=== PATIENT | male | born 1960 | race Caucasian/White ===

== ENCOUNTER → 2017-06-10 | Outpatient (CLI) | payer BC ==
[~2017-06-10] MED LIST: LEVO100T PO; OMEP20CA9 PO
[2017-06-10 12:59] LABS: ALT/SGPT 29 U/L (12-78); AST/SGOT 17 U/L (15-37); BLOOD UREA NITROGEN 16 mg/dl (7-18); BUN/CREATININE RATIO 20.4 (10-20); CALCIUM 8.6 mg/dl (8.5-10.1); CARBON DIOXIDE 27 mmol/L (21-32); CHLORIDE 107 mmol/L (98-107); CHOLESTEROL 164 mg/dl (0-200); GLUCOSE 94 mg/dl (70-99); POTASSIUM 4.2 mmol/L (3.5-5.1); SODIUM 142 mmol/L (136-145); TRIGLYCERIDES 51 mg/dl (0-150); VERY LOW DENSITY LIPOPROT CALC 10 mg/dl
[2017-06-10 13:09] LABS: ESTIMATED AVERAGE GLUCOSE 114 mg/dl; HA1C FLAG Normal (Normal)
[2017-06-10 13:10] LABS: ALB/GLOB RATIO 1.2 (0.9-2); ALKALINE PHOSPHATASE 69 U/L (45-117); HDL CHOLESTEROL 55 mg/dl; LDL CHOLESTEROL CALCULATED 99 mg/dl; PROSTATE SPECIFIC ANTIGEN 0.497 ng/ml (0.000-4.000)
== END | disposition home or self-care (01) ==
LOC: C.LABBFT 08:02
PROVIDERS: ATTEND Internal Medicine
DX: Z00.00 Encounter for general adult medical examination without abnormal findings (principal); Z12.5 Encounter for screening for malignant neoplasm of prostate; E03.9 Hypothyroidism, unspecified; R73.01 Impaired fasting glucose

== ENCOUNTER 2020-06-14 19:23 | Inpatient (IN) ==
[2020-06-14] MEDS ORDERED: ASPIRIN 81 MG CHEW PO STA (19:45)
--- NOTE | 2020-06-14 19:54 | Emergency Department Note ---
Impression & Plan Non-ST elevation IA (NSTEMI), Chest pain, PARKINSON (dyspnea on exertion) ED Provider Note Provider: Michael Solis MD DATE OF SERVICE:06/14/2020 CHIEF COMPLAINT: Exertional chest pain HISTORY OF PRESENT ILLNESS: Patient is a 59-year-old gentleman history of aortic stenosis and distant history of Hodgkin's lymphoma treated with chemotherapy and radiation therapy in the 1980s presenting here today referred by his primary doctors office. Patient reports that over the past month or so he has developed some burning and chest discomfort across his mid chest. Denies radiation to the back neck jaw or arms. Denies nausea or abdominal symptoms. States with exertion this comes on and he has some shortness of breath with it. Patient states seems to getting worse and now if he goes upstairs to his second level at home he has some discomfort. States he does not have any history of his knowle dge of heart attack. Not currently on aspirin. States about 10 years ago did stress test that was okay. Had some concerns about Covid and initially went home to discuss with his before coming into the ER for evaluation. Patient denies symptoms now at rest. No trauma reported. Denies fever or URI symptoms. No recent travel. REVIEW OF SYSTEMS: A total of 10 review of systems was obtained and negative except as stated above in the HPI. PAST MEDICAL HISTORY: As noted above MEDICATIONS: Reviewed home medications with the patient. FMH: Patient denies cardiac history in the family and is parents SOCIAL HISTORY: Formally chewed tobacco, lives at home with , works in [employer] PHYSICAL EXAM: GENERAL: alert and oriented in no acute distress on stretcher Head: normocephalic and atraumatic EYES: No injection, discharge or icterus. NECK: Trachea midline. LUNGS: Airway patent. No retractions. Breath sounds clear with good air entry bilaterally. HEART: Regular rate and rhythm. No chest wall tenderness ABDOMEN: Soft and non-tender, without guarding or rebound. SKIN: Acyanotic, warm, dry, without rashes EXTREMITIES: Without swelling, tenderness or deformity NEUROLOGICAL: No focal deficits. No aphasia. No facial droop or slurred speech. EK bpm sinus rhythm with occasional fusion complexes LVH noted with some repolarization abnormality causing some ST elevation without significant reciprocal ST depression. T wave inversion in aVL noted. Normal QTC. No priors available to system for comparison. CONTINUOUS CARDIAC MONITORING: was ordered and showed a heart rate of bpm in Patient's laboratory studies and imaging reviewed. Differential includes Cardiac ischemia, aortic dissection, pulmonary embolism, pneumothorax, pneumonia, pericarditis, myocarditis, esophageal rupture, GERD, cholecystitis, pancreatitis, musculoskeletal, as well as other pathologies. IMPRESSION/MEDICAL DECISION MAKING: Patient denies symptoms at rest. Question if this is related to possible developing unstable angina. Not having active chest pain at rest. Has LVH changes makes EKG interpretation difficult. Troponin was sent given dose of aspirin here. Does not seem consistent with acute pancreatitis or aortic dissection. Lower suspicion for PE at this time. Does not seem that consistent with an infectious etiology. Some distant since prior cardiac evaluation and likely needs expedited given worsening symptoms. Chest x-ray without significant abnormality per radiology review and my review the images. Blood work with slight leukocytosis and slight anemia. No significant renal dysfunction. Normal electrolytes. Covid testing was negative. Troponin is elevated 0.269. Again concerning for NSTEMI/unstable angina picture. Pain-free currently. Already received aspirin and started on a heparin drip. Discussed with the hospitalist for further inpatient care. Patient and were updated. Likely will need further cardiac evaluation and possible catheterization tomorrow. DIAGNOSIS: NSTEMI, Chest pain, dyspnea on exertion DISPOSITION: Hospitalist will evaluate Patient was agreeable with this plan. updated. Critical Care I have personally spent 31 minutes of critical care time in the direct management of this patient. This includes bedside care, interpretation of diagnostic studies, and testing, discussion with consultants, patient, and family members, and other required patient management activities. These 31 minutes is in excess of all separately billable procedures. Past Med/Surg History Medical History (Updated 06/14/20 @ 22:59 by Michael Solis M.D.) Aortic stenosis, moderate Clarke's esophagus Carpal tunnel syndrome, bilateral Cervical radiculopathy Chronic back pain GERD (gastroesophageal reflux disease) History of colon polyps Hodgkin disease (1987) chemo/radiation Hypothyroidism Sleep apnea doesn't use as prescribed Spinal stenosis Surgical History (Updated 06/14/20 @ 18:53 by Rani Brown MD) History of arthroscopy of left knee meniscus repair History of colonoscopy History of esophagogastroduodenoscopy (EGD) History of thyroidectomy, total d/t cancer Status post biopsy of thyroid gland malignant Family History (Updated 11/07/18 @ 11:44 by Carol Leon RN) Other No family history of adverse response to anesthesia Social History (Updated 11/07/18 @ 13:20 by Mary Kate Sosa RN) Smoking Status: Never smoker Second Hand Exposure: Yes (coworker smokes); Hx Alcohol Use: Yes Alcohol type: beer Hx Substance Use: No Preferred Language: Icelandic Communication Ability: Effective Snuff Box Finisher Required: No Beliefs That Will Affect Care: None marital status: Current Living Situation: Spouse current occupational status: employed Feels Safe at Home: Yes Assistive Devices: Glasses Allergies Allergies Allergy/AdvReac Type Severity Reaction Status Date / Time No Known Allergies Allergy Verified 06/14/20 20:55 Home Meds Home Medications Medication Instructions Recorded Confirmed calcium carbonate [Tums] 200 mg PO DIRECTED PRN 11/07/18 06/14/20 naproxen sodium [Aleve] 220 mg PO QAM 11/07/18 06/14/20 albuterol sulfate 2 puffs INH Q8H PRN 06/14/20 06/14/20 fexofenadine 0 mg PO QAM 06/14/20 06/14/20 glucosamine-chondroitin 2 tab PO QAM 06/14/20 06/14/20 levothyroxine 100 mcg PO QAM 06/14/20 06/14/20 multivitamin 1 tab PO QAM 06/14/20 06/14/20 omeprazole 40 mg PO QAM 06/14/20 06/14/20 Results & Data (ED) Vital Signs Vital Signs - 24 hr 06/14/20 19:25 06/14/20 19:45 06/14/20 20:11 Temperature 36.3 C L Temperature Source Oral Pulse Rate 89 83 Pulse Rate from SpO2 Sensor 83 Respiratory Rate 18 17 Respiratory Effort / Characteristics Non-Labored Respiratory Depth Normal Blood Pressure 173/97 H 171/92 H Blood Pressure Mean 122 101 Pulse Oximetry 95 94 96 Oxygen Delivery Method Room Air Room Air Room Air Sepsis Recent Fever Within 48 Hours No Sepsis New/Unexplained Change in Mental Status No Sepsis Action Taken by Nursing No Action Required 06/14/20 20:30 06/14/20 21:00 06/14/20 21:30 Temperature Temperature Source Pulse Rate 80 87 82 Pulse Rate from SpO2 Sensor 81 87 82 Respiratory Rate 18 18 15 Respiratory Effort / Characteristics Respiratory Depth Blood Pressure 132/80 160/97 H 134/80 Blood Pressure Mean 95 110 94 Pulse Oximetry 94 97 96 Oxygen Delivery Method Room Air Room Air Room Air Sepsis Recent Fever Within 48 Hours Sepsis New/Unexplained Change in Mental Status Sepsis Action Taken by Nursing Laboratory Data Result diagrams: 06/14/20 19:46 06/14/20 19:46 Lab Results 06/14/20 06/14/20 06/14/20 Range/Units 19:46 19:46 19:46 WBC 11.86 H (4.8-10.8) K/uL RBC 4.65 L (4.7-6.1) M/uL Hgb 13.9 L (14.0-18.0) g/dL Hct 42.2 (42-52) % MCV 90.8 (80-100) fL MCH 29.9 (25-34) pg MCHC 32.9 (32-36) g/dL RDW Std Deviation 45.1 (36.4-46.3) fL RDW Coeff of Ashlyn 13.7 (11.5-14.5) % Plt Count 220 (130-400) K/uL MPV 10.4 (7.4-10.4) fL Immature Gran % (Auto) 0.2 % Neut % (Auto) 67.2 % Lymph % (Auto) 20.8 % [place] % (Auto) 10.2 % Eos % (Auto) 1.4 % Baso % (Auto) 0.2 % Neut # (Auto) 7.97 H (1.4-6.5) K/uL Lymph # (Auto) 2.47 (1.2-3.4) K/uL [place] # (Auto) 1.21 H (0.11-0.59) K/uL Eos # (Auto) 0.17 (0-0.5) K/uL Baso # (Auto) 0.02 (0-0.2) K/uL Immature Gran # (Auto) 0.02 (0.00-0.02) K/uL PT 10.8 (9.0-12.0) Seconds INR 1.0 (0.9-1.1) APTT 27.7 (21.0-31.0) Seconds PTT Ratio 1.0 Sodium 141 (136-145) mmol/L Potassium 3.8 (3.5-5.1) mmol/L Chloride 109 H (98-107) mmol/L Carbon Dioxide 26 (21-32) mmol/L Anion Gap 6.0 (3-11) BUN 18 (7-18) mg/dl Creatinine 0.73 (0.6-1.4) mg/dl Est Cr Clr Drug Dosing 142.1 ml/min Est GFR ( Amer) 119.3 Est GFR (Non-Af Amer) 103.0 BUN/Creatinine Ratio 24.7 H (10-20) Glucose 85 (70-99) mg/dl Calcium 8.8 (8.5-10.1) mg/dl Total Bilirubin 0.7 (0.2-1) mg/dl AST 20 (15-37) U/L ALT 25 (12-78) U/L Alkaline Phosphatase 71 (45-117) U/L Troponin I 0.269 H* (0-0.045) ng/ml Total Protein 7.1 (6.4-8.2) gm/dl Albumin 4.0 (3.4-5.0) gm/dl Globulin 3.1 (2.5-4.0) gm/dl Albumin/Globulin Ratio 1.3 (0.9-2) Lipase 73 (73-393) U/L COVID-19 Eval Order SARS-CoV-2, RNA, NAAT (NEGATIVE) 06/14/20 06/14/20 Range/Units 20:43 20:43 WBC (4.8-10.8) K/uL RBC (4.7-6.1) M/uL Hgb (14.0-18.0) g/dL Hct (42-52) % MCV (80-100) fL MCH (25-34) pg MCHC (32-36) g/dL RDW Std Deviation (36.4-46.3) fL RDW Coeff of Ashlyn (11.5-14.5) % Plt Count (130-400) K/uL MPV (7.4-10.4) fL Immature Gran % (Auto) % Neut % (Auto) % Lymph % (Auto) % [place] % (Auto) % Eos % (Auto) % Baso % (Auto) % Neut # (Auto) (1.4-6.5) K/uL Lymph # (Auto) (1.2-3.4) K/uL [place] # (Auto) (0.11-0.59) K/uL Eos # (Auto) (0-0.5) K/uL Baso # (Auto) (0-0.2) K/uL Immature Gran # (Auto) (0.00-0.02) K/uL PT (9.0-12.0) Seconds INR (0.9-1.1) APTT (21.0-31.0) Seconds PTT Ratio Sodium (136-145) mmol/L Potassium (3.5-5.1) mmol/L Chloride (98-107) mmol/L Carbon Dioxide (21-32) mmol/L Anion Gap (3-11) BUN (7-18) mg/dl Creatinine (0.6-1.4) mg/dl Est Cr Clr Drug Dosing ml/min Est GFR ( Amer) Est GFR (Non-Af Amer) BUN/Creatinine Ratio (10-20) Glucose (70-99) mg/dl Calcium (8.5-10.1) mg/dl Total Bilirubin (0.2-1) mg/dl AST (15-37) U/L ALT (12-78) U/L Alkaline Phosphatase (45-117) U/L Troponin I (0-0.045) ng/ml Total Protein (6.4-8.2) gm/dl Albumin (3.4-5.0) gm/dl Globulin (2.5-4.0) gm/dl Albumin/Globulin Ratio (0.9-2) Lipase (73-393) U/L COVID-19 Eval Order Covid19 [facility] SARS-CoV-2, RNA, NAAT NEGATIVE (NEGATIVE) Administered Medications Heparin Sodium/Dextrose (Heparin Sodium/Dextrose) 25,000 units in 500 mls @ 32 mls/hr IV .[id number] COUNTS INCLUDE 234 BEDS AT THE [facility]; Protocol Stop: 07/14/20 20:44 Last Admin: 06/14/20 20:54 Dose: 1,600 units/hr, 32 mls/hr Documented by: [id number] Cosigned by: [id number] Discontinued Medications Aspirin (Aspirin 81 Mg Chew) 324 mg PO NOW STA Stop: 06/14/20 19:46 Last Admin: 06/14/20 20:09 Dose: 324 mg Documented by: [id number] Heparin Sodium/Dextrose (Heparin Iv Standard *No* Bolus) 1 ea N/A ONE ONE; Protocol Stop: 06/14/20 20:34 Last Admin: 06/14/20 20:54 Dose: 1 ea Documented by: [id number] Discharge Plan Visit Data Chief Complaint: Chest Pain Stated Complaint: CHEST PAIN, CONFUSION, CARDIAC Hx ED Provider: Michael Solis Discharge Problem: Non-ST elevation IA (NSTEMI), Chest pain, PARKINSON (dyspnea on exertion) Patient Disposition: Admitted As Inpatient Forms Stand Alone Forms: [facility] Prescriptions Prescriptions: No Action naproxen sodium [Aleve] 220 mg Capsule 220 mg PO QAM RF: 0 calcium carbonate [Tums] 200 mg calcium (500 mg) Tablet,Chewable 200 mg PO DIRECTED PRN (Reason: Heartburn/Upset Stomach) RF: 0 multivitamin Tablet 1 tab PO QAM RF: 0 fexofenadine 180 mg Tablet 0 mg PO QAM RF: 0 glucosamine-chondroitin 500-400 mg Tablet 2 tab PO QAM RF: 0 omeprazole 40 mg capsule,delayed release(DR/EC) 40 mg PO QAM RF: 0 levothyroxine 100 mcg tablet 100 mcg PO QAM RF: 0 albuterol sulfate 90 mcg/actuation HFA aerosol inhaler 2 puffs INH Q8H PRN (Reason: Shortness Of Breath Or Wheezing) RF: 0 Referrals Referrals: Rani Brown MD [Primary Care Provider] - Discharge Problem: Chest pain Qualifiers: Chest pain type: chest pain due to myocardial ischemia Ischemic chest pain type : unstable angina pectoris Qualified Code(s): I20.0 - Unstable angina
[2020-06-14 19:57] LABS: Basophils # (auto) 0.02 K/uL (0-0.2); Basophils % (auto) 0.2 %; Eosinophils # (auto) 0.17 K/uL (0-0.5); Eosinophils % (auto) 1.4 %; Hematocrit (blood only) 42.2 % (42-52); Hemoglobin 13.9 g/dL (14.0-18.0); Immature Granulocytes # (auto) 0.02 K/uL (0.00-0.02); Immature Granulocytes % (auto) 0.2 %; Lymphocytes # (auto) 2.47 K/uL (1.2-3.4); Lymphocytes % (auto) 20.8 %; Mean Corpuscular Hemoglobin 29.9 pg (25-34); Mean Corpuscular Hgb Conc 32.9 g/dL (32-36); Mean Corpuscular Volume 90.8 fL (80-100); Mean Platelet Volume 10.4 fL (7.4-10.4); Monocytes # (auto) 1.21 K/uL (0.11-0.59); Monocytes % (auto) 10.2 %; Neutrophils # (auto) 7.97 K/uL (1.4-6.5); Neutrophils % (auto) 67.2 %; Platelet Count 220 K/uL (130-400); RDW Coefficient of Variation 13.7 % (11.5-14.5); RDW Standard Deviation 45.1 fL (36.4-46.3); Red Blood Count 4.65 M/uL (4.7-6.1); White Blood Count 11.86 K/uL (4.8-10.8)
[2020-06-14 20:13] LABS: Partial Thromboplastin Time 27.7 Seconds (21.0-31.0); Prothrombin Time 10.8 Seconds (9.0-12.0)
[2020-06-14 20:14] LABS: BUN Creatinine Ratio 24.7 (10-20); Calcium 8.8 mg/dl (8.5-10.1); Creatinine Clr Calc Pharmacy 142.1 ml/min; Est GFR (African American) 119.3; Potassium 3.8 mmol/L (3.5-5.1)
--- NOTE | 2020-06-14 20:19 | XRay Report ---
XR chest 1V portable HISTORY: 59 years-old Male Chest Pain acute atypical chest pain COMPARISON: Chest radiograph 12/24/2019 TECHNIQUE: Portable AP view of the chest FINDINGS: Calcified hilar lymph nodes. Moderate cardiomegaly. No pneumothorax, large pleural effusion or overt pulmonary edema. Unchanged blunting of the costophrenic angles. Apparent bibasilar densities are like ly secondary to summation density secondary to patient body habitus. Bones appear grossly intact. IMPRESSION: Cardiomegaly without acute process. ACT 112: Negative or not required by law. The above report was generated using voice recognition software. It may contain grammatical, syntax o r spelling errors. Electronically signed by: Maged Loja M.D. 06/14/2020 8:18 PM
[2020-06-14 20:24] LABS: Albumin Globulin Ratio 1.3 (0.9-2); Bilirubin,Total 0.7 mg/dl (0.2-1); Globulin 3.1 gm/dl (2.5-4.0); Total Protein 7.1 gm/dl (6.4-8.2); Troponin I 0.269 ng/ml (0-0.045)
[2020-06-14] MEDS ORDERED: Heparin IV Standard *NO* Bolus ONE (20:33)
[2020-06-14] MEDS ORDERED: HEPARIN SODIUM/DEXTROSE 25,000 UNITS/500 ML BAG IV SCH (20:45)
[2020-06-14] MEDS ORDERED: ACETAMINOPHEN 325 MG TAB PO PRN (23:28)
[2020-06-14] MEDS ORDERED: NITROGLYCERIN SL 0.4 MG/TAB TAB SL PRN (23:28)
[2020-06-14] MEDS ORDERED: MoRPHine SULFATE 2 MG/ML CARP IV PRN (23:28)
[2020-06-14] MEDS ORDERED: ONDANSETRON INJ 2 MG/ML 2 ML VIAL IV PRN (23:28)
--- NOTE | 2020-06-15 00:56 | History & Physical Report ---
Date of Service June 14, 2020 Assessment & Plan (1) Chest pain: 59yo male presenting with exertional chest pain, mildly elevated troponin, concern for UA/NSTEMI. Patient currently HD stable, CP free. EKG with fusion complexes, LVH, troponin elevated at 0.269 -Admit to PCU -Heparin gtt -Trend troponin -Check 2D echo -Cardiology consultation appreciated - will keep patient NPO for possible catheterization -ASA 81mg po daily Present on Admission?: Yes (2) Hypothyroidism: Chronic. Stable -Continue Synthroid 100mcg po daily Present on Admission?: Yes (3) GERD (gastroesophageal reflux disease): Chronic -Protonix 40mg po daily F/E/N - Heplock. Electrolytes WNL. NPO for now Ppx - Low risk for DVT, patient will be on heparin gtt as above Code - Full Dispo - Admit to PCU Present on Admission?: Yes Admission and Anticipated Discharge Date Admission Date: June 14, 2020 History of Present Illness Chief Complaint: chest pain Primary Care Provider: Rani Brown MD Juan Carlos Aggarwal is a 59yo C male presenting with chest pain. Patient with remote history of Hodgkin's Lymphoma s/p chemotherapy and XRT, TIAGO and aortic stenosis. 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 Patient reports that over the last month he has been experiencing bandlike upper chest discomfort with activity - burning in nature, resolves after a few minutes of rest. He has associated palpitations, occasional dizziness and SOB accompanying his chest discomfort. Increased frequency and severity over the last month. Currently has never experienced the symptoms while at rest. No syncope, orthopnea, edema. No personal history of CAD/[place]/Arrhythmia. No prior cardiac catheterizations. He has had stress tests in the past, most recently > 5 years ago. Patient was told once that he may have some damage to the bottom portion of his heart from his prior chemo/XRT but is uncertain of specifics. Currently denies CP. ER Course: ASA, heparin gtt Allergies Allergy/AdvReac Type Severity Reaction Status Date / Time No Known Allergies Allergy Verified 06/14/20 20:55 Home Medications Medication Instructions Recorded Confirmed Type calcium carbonate [Tums] 200 mg PO DIRECTED PRN 11/07/18 06/14/20 History naproxen sodium [Aleve] 220 mg PO QAM 11/07/18 06/14/20 History albuterol sulfate 2 puffs INH Q8H PRN 06/14/20 06/14/20 History fexofenadine 0 mg PO QAM 06/14/20 06/14/20 History glucosamine-chondroitin 2 tab PO QAM 06/14/20 06/14/20 History levothyroxine 100 mcg PO QAM 06/14/20 06/14/20 History multivitamin 1 tab PO QAM 06/14/20 06/14/20 History omeprazole 40 mg PO QAM 06/14/20 06/14/20 History Past Med/Surg History Medical History (Updated 06/15/20 @ 01:54 by Juana Grace DO) Aortic stenosis, moderate Clarke's esophagus Carpal tunnel syndrome, bilateral Cervical radiculopathy Chronic back pain GERD (gastroesophageal reflux disease) History of colon polyps Hodgkin disease (1987) chemo/radiation Hypothyroidism Sleep apnea doesn't use as prescribed Spinal stenosis Surgical History (Updated 06/14/20 @ 18:53 by Rani Brown MD) History of arthroscopy of left knee meniscus repair History of colonoscopy History of esophagogastroduodenoscopy (EGD) History of thyroidectomy, total d/t cancer Status post biopsy of thyroid gland malignant Family History (Updated 11/07/18 @ 11:44 by Carol Leon RN) Other No family history of adverse response to anesthesia Social History (Updated 11/07/18 @ 13:20 by Mary Kate Sosa, ALLA) Smoking Status: Never smoker Second Hand Exposure: Yes (coworker smokes); Hx Alcohol Use: Yes Alcohol type: beer Hx Substance Use: No Preferred Language: Romanian Communication Ability: Effective Sedimentationist Required: No Beliefs That Will Affect Care: None marital status: Current Living Situation: Family current occupational status: employed Other Information That Helps Us Care for You: No Feels Safe at Home: Yes Safety Concerns: Feels Safe At This Time Assistive Devices: Glasses Review of Systems Review of Systems: All systems reviewed & are unremarkable except as noted in HPI & below Physical Exam Physical Exam: General: patient resting comfortably, NAD, non-toxic in appearance, AA&O x 4 Skin: warm, dry, intact, no rashes or lesions HEENT: NC/AT, PERRL, EOMI, anicteric sclera, conjunctiva without injection, external ear normal to inspection and nontender, nares patent, moist mucus membranes, dentition intact, no oropharyngeal lesions, neck supple, trachea midline, no LAD, no thyromegaly, no JVD Heart: +S1/S2, regular, no m/r/g Lungs: equal air entry bilaterally, no rales/rhonchi/wheezes Abd: +BS, soft, NT/ND, no masses/organomegaly/ascites Ext: warm, 2+ pulses in UE/LE bilaterally, no clubbing/cyanosis or edema Neuro: nonfocal, patient AA&O x 4, speech intact, no facial droop, moving all extremities on command with equal strength 5/5 Results & Data Results & Data ([facility]) Vital Signs (Past 12 Hours) Vital Signs Temp Pulse Pulse Resp BP BP Pulse Ox 06/14/20 23:28 36.6 C 108 H 22 161/99 H 95 06/14/20 23:00 90 16 131/77 96 06/14/20 22:30 90 15 149/92 H 96 06/14/20 21:30 82 15 134/80 96 06/14/20 21:00 87 18 160/97 H 97 06/14/20 20:30 80 18 132/80 94 06/14/20 20:11 83 17 171/92 H 96 06/14/20 19:45 94 06/14/20 19:25 36.3 C L 89 18 173/97 H 95 Laboratory Results Lab Results 06/14/20 06/14/20 06/14/20 Range/Units 19:38 19:46 19:46 WBC 11.86 H (4.8-10.8) K/uL RBC 4.65 L (4.7-6.1) M/uL Hgb 13.9 L (14.0-18.0) g/dL Hct 42.2 (42-52) % MCV 90.8 (80-100) fL MCH 29.9 (25-34) pg MCHC 32.9 (32-36) g/dL RDW Std Deviation 45.1 (36.4-46.3) fL RDW Coeff of Ashlyn 13.7 (11.5-14.5) % Plt Count 220 (130-400) K/uL MPV 10.4 (7.4-10.4) fL Immature Gran % (Auto) 0.2 % Neut % (Auto) 67.2 % Lymph % (Auto) 20.8 % [place] % (Auto) 10.2 % Eos % (Auto) 1.4 % Baso % (Auto) 0.2 % Neut # (Auto) 7.97 H (1.4-6.5) K/uL Lymph # (Auto) 2.47 (1.2-3.4) K/uL [place] # (Auto) 1.21 H (0.11-0.59) K/uL Eos # (Auto) 0.17 (0-0.5) K/uL Baso # (Auto) 0.02 (0-0.2) K/uL Immature Gran # (Auto) 0.02 (0.00-0.02) K/uL PT 10.8 (9.0-12.0) Seconds INR 1.0 (0.9-1.1) APTT 27.7 (21.0-31.0) Seconds PTT Ratio 1.0 Sodium (136-145) mmol/L Potassium (3.5-5.1) mmol/L Chloride (98-107) mmol/L Carbon Dioxide (21-32) mmol/L Anion Gap (3-11) BUN (7-18) mg/dl Creatinine (0.6-1.4) mg/dl Est Cr Clr Drug Dosing ml/min Est GFR ( Amer) Est GFR (Non-Af Amer) BUN/Creatinine Ratio (10-20) Glucose (70-99) mg/dl Calcium (8.5-10.1) mg/dl Magnesium (1.8-2.4) mg/dl Total Bilirubin (0.2-1) mg/dl AST (15-37) U/L ALT (12-78) U/L Alkaline Phosphatase (45-117) U/L Troponin I (0-0.045) ng/ml Total Protein (6.4-8.2) gm/dl Albumin (3.4-5.0) gm/dl Globulin (2.5-4.0) gm/dl Albumin/Globulin Ratio (0.9-2) Lipase (73-393) U/L COVID-19 Eval Order Hepatitis C Ab Screen Neg (Neg) SARS-CoV-2, RNA, NAAT (NEGATIVE) 06/14/20 06/14/20 06/14/20 Range/Units 19:46 20:43 20:43 WBC (4.8-10.8) K/uL RBC (4.7-6.1) M/uL Hgb (14.0-18.0) g/dL Hct (42-52) % MCV (80-100) fL MCH (25-34) pg MCHC (32-36) g/dL RDW Std Deviation (36.4-46.3) fL RDW Coeff of Ashlyn (11.5-14.5) % Plt Count (130-400) K/uL MPV (7.4-10.4) fL Immature Gran % (Auto) % Neut % (Auto) % Lymph % (Auto) % [place] % (Auto) % Eos % (Auto) % Baso % (Auto) % Neut # (Auto) (1.4-6.5) K/uL Lymph # (Auto) (1.2-3.4) K/uL [place] # (Auto) (0.11-0.59) K/uL Eos # (Auto) (0-0.5) K/uL Baso # (Auto) (0-0.2) K/uL Immature Gran # (Auto) (0.00-0.02) K/uL PT (9.0-12.0) Seconds INR (0.9-1.1) APTT (21.0-31.0) Seconds PTT Ratio Sodium 141 (136-145) mmol/L Potassium 3.8 (3.5-5.1) mmol/L Chloride 109 H (98-107) mmol/L Carbon Dioxide 26 (21-32) mmol/L Anion Gap 6.0 (3-11) BUN 18 (7-18) mg/dl Creatinine 0.73 (0.6-1.4) mg/dl Est Cr Clr Drug Dosing 142.1 ml/min Est GFR ( Amer) 119.3 Est GFR (Non-Af Amer) 103.0 BUN/Creatinine Ratio 24.7 H (10-20) Glucose 85 (70-99) mg/dl Calcium 8.8 (8.5-10.1) mg/dl Magnesium 2.0 (1.8-2.4) mg/dl Total Bilirubin 0.7 (0.2-1) mg/dl AST 20 (15-37) U/L ALT 25 (12-78) U/L Alkaline Phosphatase 71 (45-117) U/L Troponin I 0.269 H* (0-0.045) ng/ml Total Protein 7.1 (6.4-8.2) gm/dl Albumin 4.0 (3.4-5.0) gm/dl Globulin 3.1 (2.5-4.0) gm/dl Albumin/Globulin Ratio 1.3 (0.9-2) Lipase 73 (73-393) U/L COVID-19 Eval Order Cov[facility]19 [facility] Hepatitis C Ab Screen (Neg) SARS-CoV-2, RNA, NAAT NEGATIVE (NEGATIVE) Diagnostic Findings XR chest 1V portable HISTORY: 59 years-old Male Chest Pain acute atypical chest pain COMPARISON: Chest radiograph 12/24/2019 TECHNIQUE: Portable AP view of the chest FINDINGS: Calcified hilar lymph nodes. Moderate cardiomegaly. No pneumothorax, large pleural effusion or overt pulmonary edema. Unchanged blunting of the costophrenic angles. Apparent bibasilar densities are likely secondary to summation density secondary to patient body habitus. Bones appear grossly intact. IMPRESSION: Cardiomegaly without acute process. ACT 112: Negative or not required by law. The above report was generated using voice recognition software. It may contain grammatical, syntax or spelling errors. Electronically signed by: Maged Loja M.D. 06/14/2020 8:18 PM Dictated: 06/14/202016Transcribed: 06/14/202016 ECG Additional Comments: EKG with SR at 86bpm, fusion complexes, wide complex beats, CJ=770, QRS=94, GIq=185, LVH. PG Care Time/CCT Total # of Minutes Spent Total Time Spent with Patient: Total time spent is greater than 50% in coordination of care (as documented) at patient's floor/unit and/or counseling patient: Coding Level of Care Code 15029 Initial Inpt Care Lvl 3 Diagnoses Chest pain I20.0 Chest pain type: chest pain due to myocardial ischemia Ischemic chest pain type: unstable angina pectoris Hypothyroidism E03.9 Hypothyroidism type: unspecified GERD (gastroesophageal reflux disease) K21.9 Esophagitis presence: esophagitis presence not specified (1) Hypothyroidism Hypothyroidism type: unspecified Qualified Code(s): E03.9 - Hypothyroidism, unspecified (2) GERD (gastroesophageal reflux disease) Esophagitis presence: esophagitis presence not specified Qualified Code(s): K21.9 - Gastro-esophageal reflux disease without esophagitis (3) Chest pain Chest pain type: chest pain due to myocardial ischemia Ischemic chest pain type: unstable angina pectoris Qualified Code(s): I20.0 - Unstable angina
[2020-06-15 03:24] LABS: Partial Thromboplastin Ratio 1.6
[2020-06-15] MEDS ORDERED: LEVOTHYROXINE SODIUM 100 MCG TABLET PO SCH (06:30)
[2020-06-15] MEDS ORDERED: ASPIRIN 81 MG ECTAB PO SCH (09:00)
[2020-06-15] MEDS ORDERED: PANTOprazole 40 MG TAB PO SCH (09:00)
--- NOTE | 2020-06-15 09:26 | Cardiology Consultation ---
Date of Consultation June 15, 2020 Assessment & Plan (1) Exertional angina: (2) Elevated troponin: (3) Aortic stenosis: (4) Mitral regurgitation: (5) Pulmonary hypertension: ASSESSMENT/PLAN: 1. Angina: Symptoms are concerning for unstable angina with progressively worsening frequency of exertional angina. Discussed with him the fact that this could be due to his significant aortic stenosis versus underlying coronary artery disease. Possible that his valvular disease and potentially coronary artery disease could be related to prior XRT versus atherosclerotic disease. Recommended cardiac catheterization. Risks and benefits were discussed with him in detail. He was made aware that CT surgery is not available at this facility. He was agreeable. Currently chest pain-free. 2. Aortic stenosis: Appears to be significant on exam and echo. Full measurements have not yet been completed. Discussed the fact that he will likely need aortic valve replacement. He was made aware that that cannot be done at this facility. Cardiac catheterization as above. 3. Mitral regurgitation: Mitral regurgitation appeared to be moderate. May have some underlying mitral stenosis as well although measurements are pending. Recommend transesophageal echo given degree of mitral valve regurgitation for further investigation. Risks and benefits were discussed with him in detail. 4. Pulmonary hypertension: Likely related to his valvular heart disease. Right heart catheterization can be performed during angiography. 5. Elevated troponin: He did not rule in for myocardial infarction. Likely related to at least his aortic stenosis, with potential for underlying coronary artery disease. Can continue with heparin drip given his worsening symptoms as an outpatient. Will also start metoprolol tartrate 25 mg twice daily. Fasting lipids ordered. Recommend high-intensity statin therapy. 6. Disposition: Cardiology will continue to follow. He has asked that I contact his and will do so via telephone. Patient care communicated with Dr. Arnold of the primary hospitalist service. Highly complex medical issues. Thank you for allowing me to participate in the care of your patient. Please call for any other questions or concerns. Sincerely, Hi Juarez M.D. History of Present Illness Reason for Consultation: unstable angina Requesting Physician: Dr. Hayes Grace Attending Physician: Bill Jose History of Present Illness Mr. Aggarwal is a very pleasant 59-year-old gentleman with a history significant for Hodgkin's lymphoma s/p XRT and chemo therapy in his 20s, sleep apnea (no treatment), and aortic stenosis. He also has a history of thyroidectomy. He admits that he does not follow-up with physicians on a regular basis and has not had screening labs done in some time. He was seen in the outpatient setting yesterday with symptoms concerning for angina and was instructed to go to the emergency department. For the past 1 month, he has had burning across his chest with exertion only. Symptoms resolved within 5-10 minutes of rest. There is associated shortness of breath but no radiation of the pain and no diaphoresis. The frequency of his chest discomfort has been progressively worsening over the past month. He even experiences chest discomfort in his own home, when climbing a flight of stairs. He denies any chest discomfort at rest. He denies any chest discomfort or shortness of breath currently while hospitalized. He carries with him a history of aortic stenosis which was moderate in the past per records. When he arrived at the emergency department, his troponin was slightly elevated at 0.269 and then trended downward to 0.188. He denies melena, hematochezia, hematuria, or other bleeding. He does have exertional lightheadedness but denies syncope. He denies palpitations, orthopnea, shortness of breath at rest, fevers or chills. He was placed on heparin drip by the primary hospitalist service and remains symptom free. Review of systems: As above. Review of systems otherwise negative/unremarkable. Family history: No known premature CAD in first-degree relatives. No known valvular heart disease in first-degree relatives. Social history: Denies smoking. Occasional alcohol. No drugs. He lives at home with his . They have 1 daughter. He works for a [employer]. He was unaccompanied in his hospital room. Allergies Allergy/AdvReac Type Severity Reaction Status Date / Time No Known Allergies Allergy Verified 06/14/20 20:55 Home Medications Medication Instructions Recorded Confirmed Type calcium carbonate [Tums] 200 mg PO DIRECTED PRN 11/07/18 06/14/20 History naproxen sodium [Aleve] 220 mg PO QAM 11/07/18 06/14/20 History albuterol sulfate 2 puffs INH Q8H PRN 06/14/20 06/14/20 History fexofenadine 0 mg PO QAM 06/14/20 06/14/20 History glucosamine-chondroitin 2 tab PO QAM 06/14/20 06/14/20 History levothyroxine 100 mcg PO QAM 06/14/20 06/14/20 History multivitamin 1 tab PO QAM 06/14/20 06/14/20 History omeprazole 40 mg PO QAM 06/14/20 06/14/20 History Patient History Medical History (Updated 06/15/20 @ 09:20 by Kevin Juarez MD) Aortic stenosis Clarke's esophagus Carpal tunnel syndrome, bilateral Cervical radiculopathy Chronic back pain GERD (gastroesophageal reflux disease) History of colon polyps Hodgkin disease (1987) chemo/radiation Hypothyroidism Sleep apnea doesn't use as prescribed Spinal stenosis Surgical History (Updated 06/15/20 @ 09:20 by Kevin Juarez MD) History of arthroscopy of left knee meniscus repair History of colonoscopy History of esophagogastroduodenoscopy (EGD) History of thyroidectomy, total Status post biopsy of thyroid gland Family History (Updated 11/07/18 @ 11:44 by Carol Leon RN) Other No family history of adverse response to anesthesia Social History (Updated 11/07/18 @ 13:20 by Mary Kate Sosa RN) Smoking Status: Never smoker Second Hand Exposure: Yes (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 Alert and oriented. HEENT: Anicteric sclera. Neck: No JVD. Bilateral bruits vs radiation of cardiac murmur. Normal carotid upstrokes bilaterally. Cardiac: PMI was nondisplaced. No ventricular heave. Regular rate and rhythm. Normal S1. Soft S2. 2/6 late peaking systolic ejection murmur heard best at right upper sternal border. No rubs or gallops. Pulmonary: Clear to auscultation bilaterally without wheezes, rales, or rhonchi. Abdomen: Soft, nontender, nondistended, with normoactive bowel sounds. No bruits noted. Extremities: 2+ radial pulses bilaterally. 2+ posterior tibialis pulses bilaterally. No edema or cyanosis. No palpable cords. Psychiatric: Affect appears appropriate. Results & Data ([facility]) Vital Signs (Past 12 Hours) Vital Signs Temp Pulse Pulse Resp BP BP Pulse Ox 06/15/20 03:43 36.6 C 85 18 140/85 93 06/14/20 23:28 36.6 C 108 H 22 161/99 H 95 06/14/20 23:00 90 16 131/77 96 06/14/20 22:30 90 15 149/92 H 96 06/14/20 21:30 82 15 134/80 96 Laboratory Results Laboratory Results - last 24 hr 06/14/20 06/14/20 06/14/20 19:38 19:46 19:46 WBC 11.86 H RBC 4.65 L Hgb 13.9 L Hct 42.2 MCV 90.8 MCH 29.9 MCHC 32.9 RDW Std Deviation 45.1 RDW Coeff of Ashlyn 13.7 Plt Count 220 MPV 10.4 Immature Gran % (Auto) 0.2 Neut % (Auto) 67.2 Lymph % (Auto) 20.8 [place] % (Auto) 10.2 Eos % (Auto) 1.4 Baso % (Auto) 0.2 Neut # (Auto) 7.97 H Lymph # (Auto) 2.47 [place] # (Auto) 1.21 H Eos # (Auto) 0.17 Baso # (Auto) 0.02 Immature Gran # (Auto) 0.02 PT 10.8 INR 1.0 APTT 27.7 PTT Ratio 1.0 Sodium Potassium Chloride Carbon Dioxide Anion Gap BUN Creatinine Est Cr Clr Drug Dosing Est GFR ( Amer) Est GFR (Non-Af Amer) BUN/Creatinine Ratio Glucose Calcium Magnesium Total Bilirubin AST ALT Alkaline Phosphatase Troponin I Total Protein Albumin Globulin Albumin/Globulin Ratio Lipase COVID-19 Eval Order Hepatitis C Ab Screen Neg SARS-CoV-2, RNA, NAAT 06/14/20 06/14/20 06/14/20 19:46 20:43 20:43 WBC RBC Hgb Hct MCV MCH MCHC RDW Std Deviation RDW Coeff of Ashlyn Plt Count MPV Immature Gran % (Auto) Neut % (Auto) Lymph % (Auto) [place] % (Auto) Eos % (Auto) Baso % (Auto) Neut # (Auto) Lymph # (Auto) [place] # (Auto) Eos # (Auto) Baso # (Auto) Immature Gran # (Auto) PT INR APTT PTT Ratio Sodium 141 Potassium 3.8 Chloride 109 H Carbon Dioxide 26 Anion Gap 6.0 BUN 18 Creatinine 0.73 Est Cr Clr Drug Dosing 142.1 Est GFR ( Amer) 119.3 Est GFR (Non-Af Amer) 103.0 BUN/Creatinine Ratio 24.7 H Glucose 85 Calcium 8.8 Magnesium 2.0 Total Bilirubin 0.7 AST 20 ALT 25 Alkaline Phosphatase 71 Troponin I 0.269 H* Total Protein 7.1 Albumin 4.0 Globulin 3.1 Albumin/Globulin Ratio 1.3 Lipase 73 COVID-19 Eval [facility] Hepatitis C Ab Screen SARS-CoV-2, RNA, NAAT NEGATIVE 06/15/20 06/15/20 03:00 03:00 WBC RBC Hgb Hct MCV MCH MCHC RDW Std Deviation RDW Coeff of Ashlyn Plt Count MPV Immature Gran % (Auto) Neut % (Auto) Lymph % (Auto) [place] % (Auto) Eos % (Auto) Baso % (Auto) Neut # (Auto) Lymph # (Auto) [place] # (Auto) Eos # (Auto) Baso # (Auto) Immature Gran # (Auto) PT INR APTT 44.0 H PTT Ratio 1.6 Sodium Potassium Chloride Carbon Dioxide Anion Gap BUN Creatinine Est Cr Clr Drug Dosing Est GFR ( Amer) Est GFR (Non-Af Amer) BUN/Creatinine Ratio Glucose Calcium Magnesium Total Bilirubin AST ALT Alkaline Phosphatase Troponin I 0.188 H* Total Protein Albumin Globulin Albumin/Globulin Ratio Lipase COVID-19 Eval Order Hepatitis C Ab Screen SARS-CoV-2, RNA, NAAT Diagnostic Findings Echo was reviewed at the bedside on 06/15/2020: Preliminary review demonstrated normal LV systolic function without obvious wall motion abnormality. Significant aortic stenosis. At least moderate mitral regurgitation. Pulmonary hypertension. Formal review is pending. ECG personally reviewed: ECG 06/14/2020: Sinus rhythm 86 beats per minute. Intermittent LBBB. Telemetry personally reviewed: No arrhythmia. Chest x-ray 06/14/2020: No acute process per Radiology. PG Care Time/CCT Total # of Minutes Spent Total Time Spent with Patient: Total time spent is greater than 50% in policy service coordinator rdination of care (as documented) at patient's floor/unit and/or counseling patient: Coding Level of Care Code 96194 Inpt Consult Level 5 Diagnoses Exertional angina I20.8 Elevated troponin R77.8 Aortic stenosis I35.0 Mitral regurgitation I34.0 Pulmonary hypertension I27.20
[2020-06-15] MEDS: METOPROLOL TARTRATE 25 MG TAB PO SCH ×2 (10:06→19:32)
[2020-06-15 10:19] LABS: Chol HDL Ratio 3; Cholesterol 199 mg/dl (0-200); HDL Cholesterol 65 mg/dl; LDL Cholesterol Calculated 122 mg/dl; Triglycerides 59 mg/dl (0-150); VLDL Cholesterol 12 mg/dl
[2020-06-15 10:21] LABS: Partial Thromboplastin Ratio 1.8
--- NOTE | 2020-06-15 10:38 | Pre Anesthesia Assessment ---
Date of Service June 15, 2020 Pre Sedation Assessment Vital Signs Temp Pulse Pulse Resp BP BP Pulse Ox 06/15/20 08:00 36.6 C 88 16 185/100 H 96 06/15/20 03:43 36.6 C 85 18 140/85 93 06/14/20 23:28 36.6 C 108 H 22 161/99 H 95 06/14/20 23:00 90 16 131/77 96 06/14/20 22:30 90 15 149/92 H 96 06/14/20 21:30 82 15 134/80 96 06/14/20 21:00 87 18 160/97 H 97 06/14/20 20:30 80 18 132/80 94 06/14/20 20:11 83 17 171/92 H 96 06/14/20 19:45 94 06/14/20 19:25 36.3 C L 89 18 173/97 H 95 Cardiovascular + murmur Respiratory normal respiratory effort, lungs clear to auscultation Pre-Sedation Airway Assessment Smoking Status: Never smoker Mallampati Class: II ASA: ASA3 NPO Status Date of Last Intake of Fluids: 06/14/20 Time of Last Intake of Fluids: 21:00 Date of Last Intake of Solid Food: 06/14/20 Time of Last Intake of Solid Foods: 21:00 Procedure Planning Contraindications for Sedation: none Current Medications Reviewed: Yes Notes The planned sedation has been discussed with the patient. Informed Consent was obtained. I have identified the patient, determined the appropriateness of sedation and have assessed the patient immediately prior to the procedure. All medicine(s) and interventions are by my order.
[2020-06-15 11:11] LABS: Partial Thromboplastin Time 50.5 Seconds (21.0-31.0)
[2020-06-15] MEDS ORDERED: BENZOCAIN/TETRACA/BUTAM SPRAY 200 APPLN/20 GM SPRY EXT ONE (11:54)
[2020-06-15] MEDS ORDERED: MIDAZOLAM HCL 1 MG/ML 2ML VIAL ONE ×2 (11:54→12:41)
[2020-06-15] MEDS ORDERED: fentaNYL citrate 100 MCG/2 ML VIAL ONE ×2 (11:54→12:41)
--- NOTE | 2020-06-15 12:03 | Electrocardiogram Report ---
Test Reason : Blood Pressure : / mmHG Vent. Rate : 086 BPM Atrial Rate : 086 BPM P-R Int : 128 ms QRS Dur : 094 ms QT Int : 368 ms P-R-T Axes : 027 025 011 degrees QTc Int : 440 ms Sinus rhythm with Fusion complexes Possible Left atrial enlargement Left ventricular hypertrophy Nonspecific ST abnormality Abnormal ECG No previous ECGs available Confirmed by Jesus Lee ([id number]) on 06/15/2020 12:03:32 PM Referred By: Rani Brown Confirmed By:Jesus Lee
[2020-06-15] MEDS ORDERED: niCARdipine HCL INJ 2.5 MG/ML 10 ML AMP ONE (12:41)
[2020-06-15] MEDS ORDERED: HEPARIN (PORCINE) 1000 UNIT/ML 10 ML (CATH LAB USE ONLY) ONE (12:41)
[2020-06-15] MEDS ORDERED: NITROGLYCERIN/D5W 100MCG/ML 20ML SYR ONE (12:42)
--- NOTE | 2020-06-15 13:02 | XCELERA ---
[id number]
--- NOTE | 2020-06-15 13:46 | Cardiac Catheterization ---
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 Cardiac Status Clinical evaluation leading to the procedure CAD Presenation: Unstable angina Anginal Classification: CCS III Heart Failure: No Cardiogenic Shock within 24 Hours: No Cardiac Arrest within 24 Hours: No Imaging Studies Past 6 Months: Yes Stress Studies Past 6 Months: No Standard Exercise Test: No Stress Echocardiogram: No Stress Testing w/SPECT MPI: No Cardiac CTA: No Coronary Anatomy Dominant: Right Left Ventricular Angiography EF (%): n/a Diagnostic Physicians Name: Kevin Juarez MD Status: Elective Closure Device Percutaneous Entry Location: Radial Closure Device: Radial Band Recommendations: Management Recommendatons (as above) Cardiac Cath Procedure Full Procedure Date June 15, 2020 Pre-Procedure Diagnosis Pre-Procedure Diagnosis: Angina and Valvular Disease AUC Score AUC Score: 8 Post-Procedure Diagnosis Post-Procedure Diagnosis: Severe CAD and Elevated Intracardiac Pressures Procedure(s) Performed Procedure(s) Performed: Coronary Angiography and Right Heart Cath Physical Therapy Professor Kevin Juarez MD Postbed Stitcher(s) Ezequiel Estimated Blood Loss Estimated Blood Loss: < 25 ml Medication(s) Medication(s): Heparin, Lidocaine 1%, Nicardipine and Versed Summary of Findings Procedures: 1. Coronary angiography 2. Right heart catheterization 3. Moderate sedation Coronary angiography: 1. Left main coronary artery: LMCA without significant CAD. 2. Left anterior descending: Proximal LAD 30%. At the bifurcation of a small D1, mid LAD 80%. Medium caliber D2. SERA-3 flow throughout. 3. Circumflex: Large caliber vessel. Mid circumflex 10 to 20%. Small OM1, small OM 2, very large OM 3. Distal circumflex continues in the AV groove a a very small caliber vessel. 4. Right coronary artery: Dominant and large caliber vessel. Proximal RCA 40%. Mid RCA 30%. Large PDA and PL without significant CAD. Right heart catheterization: 1. Pulmonary capillary wedge pressure: V wave 18 with a mean of 14 mmHg 2. Pulmonary arterial pressure: 40/16 with a mean of 24 mmHg 3. Right ventricular pressure: 40/0 with RVEDP of 7 mmHg 4. Right atrial pressure: A wave 10; V wave 7; mean 5 mmHg 5. Cardiac output via thermodilution is 6.43 L/min, with a cardiac index of 2.81 L/min/m. 6. PVR 1.56 Wood units. Moderate sedation: 1. Sedation start time: 1:05 PM 2. Sedation end time: 1:34 PM Impression: 1. Severe mid LAD stenosis. 2. Mild pulmonary hypertension. 3. Mildly elevated left-sided filling pressure. 4. Normal cardiac output. 5. Previously diagnosed moderate to severe aortic stenosis with moderate to severe mitral regurgitation. Plan: 1. Recommend transfer to CT surgery capable center for consideration of aortic valve replacement and revascularization of LAD. Hemodynamics Rest Ao:: 113/65 Final Ao: 115/63 LV: n/a Recommendations Recommendations: Management Recommendatons (as above) Specimens Specimens: None Radiation Exposure (mGy) 736 mGy. Fluoro time 3.7 min. Contrast (mls) 70 ml Procedural Complication(s) None Disposition PCU I attest to the content of the Intraoperative Record and any orders documented therein. Any exceptions are noted below. [facility] Card Cath Procedure Codes Cardiac Catheterization Procedure 1: Cardiovascular Cath Procedures: 96918 Coronaries and RHC Moderate Sedation Procedure 1: Sedation/Anesthesia: 46751 Mod Sedation by the same physician;Init15 Min Child Age 5 & Up Procedure 2: Sedation/Anesthesia: 22813 Mod Sedation by the same physician; Ea [id number] Minutes PG Care Time/CCT Total # of Minutes Spent Total Time Spent with Patient: Total time spent is greater than 50% in coordination of care (as documented) at patient's floor/unit and/or counseling patient:
[2020-06-15 13:50] LABS: iSTAT Arterial Blood Gas HCO3 22 meg/L (19-24); iSTAT Arterial Blood Gas pCO2 37 mmHg (35-46); iSTAT Arterial Blood Gas pH 7.37 (7.35-7.45); iSTAT Arterial Blood Gas pO2 36 mmHg (80-95); iSTAT Carbon Dioxide 23 mmol/L (24-31)
[2020-06-15 13:50] LABS: iSTAT Arterial Blood Gas HCO3 25 meg/L (19-24); iSTAT Arterial Blood Gas pCO2 45 mmHg (35-46); iSTAT Arterial Blood Gas pH 7.35 (7.35-7.45); iSTAT Arterial Blood Gas pO2 36 mmHg (80-95); iSTAT Carbon Dioxide 26 mmol/L (24-31)
--- NOTE | 2020-06-15 13:56 | Post Operative Brief Note ---
Cardiology Brief Post Op Date of Surgery June 15, 2020 Pre & Post Diagnosis Operation Date: 06/15/20 12:00 <No data on this case meets the specified criteria> Operation Date: 06/15/20 12:30 <No data on this case meets the specified criteria> Procedure [facility] Kevin Juarez MD Virtual Reality Specialist none Estimated Blood Loss 0 Findings See Below Preliminary findings: Normal LV systolic function. Severely stenotic trileaflet aortic valve. Moderate to severe mitral regurgitation. Full report to follow formal review.
[2020-06-15] MEDS ORDERED: SODIUM CHLORIDE 0.9% 1000ML 1,000 ML IV SCH (14:00)
--- NOTE | 2020-06-15 14:25 | Post Anesthesia Assessment ---
Date of Service June 15, 2020 Post Sedation Assessment Vital Signs Temp Pulse Pulse Resp BP BP Pulse Ox 06/15/20 14:11 81 16 136/81 96 06/15/20 13:59 80 16 129/80 95 06/15/20 13:44 74 16 140/84 95 06/15/20 12:25 81 14 116/70 95 06/15/20 12:20 83 14 132/71 95 06/15/20 12:10 95 H 17 142/107 H 96 06/15/20 08:00 36.6 C 88 16 185/100 H 96 06/15/20 03:43 36.6 C 85 18 140/85 93 06/14/20 23:28 36.6 C 108 H 22 161/99 H 95 06/14/20 23:00 90 16 131/77 96 06/14/20 22:30 90 15 149/92 H 96 06/14/20 21:30 82 15 134/80 96 06/14/20 21:00 87 18 160/97 H 97 06/14/20 20:30 80 18 132/80 94 06/14/20 20:11 83 17 171/92 H 96 06/14/20 19:45 94 06/14/20 19:25 36.3 C L 89 18 173/97 H 95 Recovery Score Activity: Moves 4 extremities Respiration: Deep Breath/Cough Circulation: +/-20% PreAnes Value Consciousness: Fully Awake Oxygen Saturation: > 92% On Room Air Discharge Sedation Level of Care: Fast Track Phase II Post Sedation Plan On clinical assessment, the patient appears to have tolerated the sedation without complications. Patient is recovering as anticipated. Patient will continue to be monitored by nursing and may be discharged when sedation discharge criteria are met per below protocol. Upon Completions of procedure up to 15 minutes continue every 5 minute vital signs and the P.A.R. score; then discharge to a Phase I or Fast Track to Phase II per the following guidelines: * Discharge Patient to appropriate Phase II area if PAR is 8 or greater or return to pre- procedure baseline. The post - procedure orders will be as directed. * If PAR score is less than 8 or not return to pre-procedure baseline then patient will follow Phase I monitoring till PAR is reached for Phase II. The Phase I may be done in procedure room or may call to secure a Phase I area. * If naloxone or flumazenil are used for reversal, hold in Phase I for continued monitoring from when last reversal dose was given for a minimum of 60 minutes or longer pending the nurse and/or physician discretion of patient condition before discharge to Phase II. Please call the Sedation Physician to re-evaluate and complete post-note for discharge to Phase II area. Do NOT discharge from procedure sedation or Phase 1 until post- sedation evaluation note is complete by procedure /sedation MD Sedation Discharge Instructions to be given to the patient at discharge to home.
[2020-06-15 15:15] LABS: iSTAT Arterial Blood Gas HCO3 21 meg/L (19-24); iSTAT Arterial Blood Gas pCO2 38 mmHg (35-46); iSTAT Arterial Blood Gas pH 7.36 (7.35-7.45); iSTAT Arterial Blood Gas pO2 52 mmHg (80-95); iSTAT Carbon Dioxide 23 mmol/L (24-31)
[2020-06-15 15:15] LABS: iSTAT Arterial Blood Gas HCO3 24 meg/L (19-24); iSTAT Arterial Blood Gas pCO2 40 mmHg (35-46); iSTAT Arterial Blood Gas pH 7.39 (7.35-7.45); iSTAT Arterial Blood Gas pO2 52 mmHg (80-95); iSTAT Carbon Dioxide 25 mmol/L (24-31)
--- NOTE | 2020-06-15 15:38 | Discharge Summary ---
Date of Service date of admission - June 14, 2020 date of discharge - June 15, 2020 Admission HPI Per Admitting Provider Juan Carlos Aggarwal is a 59yo C male presenting with chest pain. Patient with remote history of Hodgkin's Lymphoma s/p chemotherapy and XRT, TIAGO and aortic stenosis. He is active and independent at home, works as an senior industrial engineer for [employer]. Patient reports that over the last month he has been experiencing bandlike upper chest discomfort with activity - burning in nature, resolves after a few minutes of rest. He has associated palpitations, occasional dizziness and SOB accompanying his chest discomfort. Increased frequency and severity over the last month. Currently has never experienced the symptoms while at rest. No syncope, orthopnea, edema. No personal history of CAD/TX/Arrhythmia. No prior cardiac catheterizations. He has had stress tests in the past, most recently > 5 years ago. Patient was told once that he may have some damage to the bottom portion of his heart from his prior chemo/XRT but is uncertain of specifics. Currently denies CP. ER Course: ASA, heparin gtt Principal Diagnosis NSTEMI; severe CAD; mod-severe aortic stenosis Discharge Exam Constitutional well developed and well nourished; no acute distress and no altered mental status ENMT external ear and nose normal, oropharynx normal Respiratory no respiratory distress Auscultation: + wheezes (minimal - end-expiratory b/l); no crackles and no rhonchi Cardiovascular Rate/Rhythm: regular rate and regular rhythm Heart Sounds: normal S1, normal S2 and + murmur (3/6 holosystolic RUSB/apex) Vessels: posterior tibial pulses present and dorsalis pedis pulses present; no JVD Extremities: no edema Gastrointestinal (Abdomen) normal bowel sounds, soft, nontender, no hepatosplenomegaly Skin right wrist without hematoma or significant bruising Psychiatric A+Ox3, euthymic affect Discharge Data Allergies Allergy/AdvReac Type Severity Reaction Status Date / Time No Known Allergies Allergy Verified 06/14/20 20:55 Consultations [facility] Cardiology - Kevin Juarez MD Procedures Performed Operation Date: 06/15/20 12:00 Actual Procedures p Echo Transesophageal - Kevin Juarez MD - severe . s Echo Color Flow - Kevin Juarez MD s Echo Doppler Complete - Kevin Juarez MD Operation Date: 06/15/20 12:30 Actual Procedures p Cath, Right and Left Heart - Kevin Juarez MD s Cineradiography w/Routine Exam - Kevin Juarez MD Summary of Findings Procedures: 1. Coronary angiography 2. Right heart catheterization 3. Moderate sedation Coronary angiography: 1. Left main coronary artery: LMCA without significant CAD. 2. Left anterior descending: Proximal LAD 30%. At the bifurcation of a small D1, mid LAD 80%. Medium caliber D2. SERA-3 flow throughout. 3. Circumflex: Large caliber vessel. Mid circumflex 10 to 20%. Small OM1, small OM 2, very large OM 3. Distal circumflex continues in the AV groove a a very small caliber vessel. 4. Right coronary artery: Dominant and large caliber vessel. Proximal RCA 40%. Mid RCA 30%. Large PDA and PL without significant CAD. Right heart catheterization: 1. Pulmonary capillary wedge pressure: V wave 18 with a mean of 14 mmHg 2. Pulmonary arterial pressure: 40/16 with a mean of 24 mmHg 3. Right ventricular pressure: 40/0 with RVEDP of 7 mmHg 4. Right atrial pressure: A wave 10; V wave 7; mean 5 mmHg 5. Cardiac output via thermodilution is 6.43 L/min, with a cardiac index of 2.81 L/min/m. 6. PVR 1.56 Wood units. Moderate sedation: 1. Sedation start time: 1:05 PM 2. Sedation end time: 1:34 PM Impression: 1. Severe mid LAD stenosis. 2. Mild pulmonary hypertension. 3. Mildly elevated left-sided filling pressure. 4. Normal cardiac output. 5. Previously diagnosed moderate to severe aortic stenosis with moderate to severe mitral regurgitation. Ordered Studies 06/15/20 12:32 CL Cath Imgs for PACS use only Routine 2D echo: * EF 55-60% * no regional wall motion abnormalities * severe LVH * mod-severe * moderate MR * moderate pulmonary HTN; RVSP 51mmHg Hospital Course (1) Non-ST elevation TX (NSTEMI): Peak troponin 0.26. Initiated on heparin infusion at time of admission. Patient had no further cardiopulmonary symptoms for the remainder of his brief stay. Dr Kevin Juarez was consulted from [facility]iology who recommended MARA and heart catheterization. MARA showed severe , and heart catheterization confirmed severe CAD with 80% LAD lesion. Minor plaque was found in the left circumflex and RCA (see full cath report above). Patient was initiated on aspirin, high-intensity statin (lipitor 80mg daily), and metoprolol. LDL was 122 on lipid profile. HDL was 65. Triglycerides were 59. 2D echo and MARA both showed severe . In light of the severe and severe CAD Dr Juarez recommended transfer to a tertiary care center for consideration of surgical intervention of the and LAD lesion. Dr Moira More graciously accepted Mr Aggarwal in transfer to [facility] for ongoing care. Prior to transfer the patient had stable vital signs, clear chest x-ray, and no recurrent cardiopulmonary symptoms. (2) CAD (coronary artery disease): See full cath report for details. (3) Aortic stenosis: Moderate-Severe as seen on 2D echo and MARA. Surgical intervention to be considered. Suspect that prior radiation for lymphoma contributed to the development of his . (4) Mitral regurgitation: Moderate on echo. (5) Pulmonary hypertension: Moderate on heart cath. (6) Clarke's esophagus: h/o such. Continue PPI. (7) GERD (gastroesophageal reflux disease): Continue PPI. (8) Hypothyroidism: Recommend checking TSH upon transfer to [facility] and adjust his synthroid as necessary. Pre-hospital dose was 100mcg daily. (9) Sleep apnea: Noncompliant with CPAP. (10) History of Hodgkin's lymphoma: s/p radiation and chemotherapy in the distant past. Likely that past radiation contributed to the patient's development of severe aortic stenosis. Total Time Total Time Spent Total Time Spent (In Minutes): 45 Total Time Includes: Examination of the Patient, Discharge Planning, Medication Reconciliation and Communication With Other Providers Discharge Plan Discharge Items Patient Disposition: Transfer Acute Care Hospital Reason For Visit: UNSTABLE ANGINA Discharge Diagnosis: 1. NSTEMI 2. severe CAD 3. moderate-severe aortic stenosis Activity: Per Instructions section Non-emergency contact: Primary Care Provider and [employer] Call non-emergency contact if: you have any medication questions Follow-up/Referrals: Kevin Juarez MD [Physician] - (4-6 weeks after hospital discharge) Rani Brown MD [Primary Care Provider] - Diet: Heart Healthy Addtl Attending Provider Instructions: ACTIVITY RECOMMENDATIONS following heart catheterization: Excess manipulation of the RIGHT wrist should be avoided for the next 24-48 hours. * No lifting over 2 pounds (approximately a 1/2 gallon of milk) with the utilized arm for 24 hours. * No strenuous activity for 3 days. * Keep the site of the procedure covered with a bandage for 24 hours. *You may shower the day after the procedure. Do not take a tub bath or submerge the puncture site in water for the next 3 days. *Do not operate any motorized equipment for 3 days. No HOT or WARM liquids for _8_ hours. __ Avoid "scratchy" foods such as potato chips or pretzels for 24 hours following procedure. SPECIAL CARE INSTRUCTIONS: The site may be slightly bruised and sore following your procedure. Should any of the following occur, contact the Dr. who performed your procedure. 1. Redness/inflammation, swelling, chills, or fever, or colored drainage at procedure site within 3-7 days after your procedure. 2. Coldness, discoloration, ongoing numbness, severe pain, or swelling. Expect mild tingling of hand and tenderness at the puncture site for up to three days. If this persists beyond three days, or other symptoms develop, notify the Dr. who performed your procedure. BLEEDING: If the procedure site on your wrist begins to bleed, do not panic 1. Place 1 or 2 fingers firmly just slightly above the insertion site to stop the bleeding. You may be able to feel your pulse as you hold pressure. 2. Lift your finger after 5 minutes to see if the bleeding has stopped. 3. Once the bleeding has stopped, gently wipe the wrist area clean with a bandage. * If the bleeding from your wrist does not stop after 10 minutes, or if there is a large amount of bleeding or spurting, call 911 (do not drive yourself to the hospital). SKIN IRRITATION: * You may experience some redness and/or swelling in the area where radiation was administered. If any skin irritation occurs, please contact your family physician. FOLLOW UP VISIT: 1. Follow up in Dr. Juarez's office upon 4-6 weeks from discharge. Pending Studies at Discharge: No Stand-Alone Forms: My [facility] Skilled Items Patient informed of condition?: Yes DNR: No Discharge Level of Care: Other Communicable Disease: No Discharge Prognosis: Stable Lines: Peripheral IV Urinary Catheter: No Medications and DC Order Prescriptions: New atorvastatin 40 mg Tablet 80 mg PO HS Qty: 60 RF: 0 metoprolol tartrate 25 mg Tablet 25 mg PO BID Qty: 60 RF: 0 nitroglycerin [Nitrostat] 0.4 mg Tablet, Sublingual 0.4 mg sublingual UD PRN (Reason: chest pain) Qty: 1 RF: 0 aspirin 81 mg Tablet,Delayed Release (Dr/Ec) 81 mg PO QAM Qty: 90 RF: 0 pantoprazole 40 mg Tablet,Delayed Release (Dr/Ec) 40 mg PO QAM Qty: 30 RF: 0 Continued calcium carbonate [Tums] 200 mg calcium (500 mg) Tablet,Chewable 200 mg PO DIRECTED PRN (Reason: Heartburn/Upset Stomach) RF: 0 multivitamin Tablet 1 tab PO QAM RF: 0 glucosamine-chondroitin 500-400 mg Tablet 2 tab PO QAM RF: 0 levothyroxine 100 mcg tablet 100 mcg PO QAM RF: 0 albuterol sulfate 90 mcg/actuation HFA aerosol inhaler 2 puffs INH Q8H PRN (Reason: Shortness Of Breath Or Wheezing) RF: 0 Changed fexofenadine 180 mg Tablet 180 mg PO QAM Qty: 1 RF: 0 Discontinued naproxen sodium [Aleve] 220 mg Capsule 220 mg PO QAM RF: 0 omeprazole 40 mg capsule,delayed release(DR/EC) 40 mg PO QAM RF: 0 Discharge Orders: Discharge Order (Routine); Ordered 06/15/20 Ordered By: Bill Jose Admission Data Admit Date/Time: 06/14/20 21:21 Attending Provider: Bill Jose Admit Provider: Juana Grace Primary Care Provider: Rani Brown Other Providers: Juana Grace ; Kevin Juarez Coding Level of Care Code D/C Day Management >30 mins Diagnoses Non-ST elevation TX (NSTEMI) I21.4 CAD (coronary artery disease) I25.10 Aortic stenosis I35.0 Mitral regurgitation I34.0 Pulmonary hypertension I27.20 Clarke's esophagus K22.70 GERD (gastroesophageal reflux disease) K21.9 Esophagitis presence: esophagitis presence not specified Hypothyroidism E03.9 Hypothyroidism type: unspecified Sleep apnea G47.30 History of Hodgkin's lymphoma Z85.71
--- NOTE | 2020-06-15 15:41 | XRay Report ---
SINGLE VIEW CHEST CLINICAL HISTORY: Wheezing. Myocardial infarction. FINDINGS: An AP, portable, upright chest radiograph is compared to study dated 06/14/2020. The heart is enlarged noting atherosclerotic calcification of the thoracic aorta. The pulmonary vasculature is noncongested. There are calcified mediastinal and hilar lymph nodes. Suspect trace pleural effusions. There is bibasilar atelectasis. No airspace consolidation is seen typical for pneumonia. No pneumoth orax is seen. The skeletal structures are osteopenic. The bony thorax is grossly intact. IMPRESSION: 1. Cardiomegaly without radiographic evidence of congestive failure. 2. Suspect trace pleural effusions. ACT 112: Negative or not required by law. Electronically signed by: Ruddy Yost M.D. 06/15/2020 3:40 PM
[2020-06-15] MEDS ORDERED: ATORVASTATIN 40 MG TAB PO SCH (21:00)
--- NOTE | 2020-06-15 21:54 | XCELERA ---
[id number]
--- NOTE | 2020-06-30 13:17 | Coding Query ---
CODING QUERY To promote full compliance with coding requirements relating to patient care, provider participation is requested in all cases of slip tender uncertainty. Please assist us with the question(s) below: Coding Question(s): There is documentation of NSTEMI on ER, H&P and Discharge Summary, however the Cardiology Consultation, prior to the Cardiac Cath procedure, documents, "Elevated troponin: He did not rule in for myocardial infarction. Likely related to at least his aortic stenosis, with potential for underlying coronary artery disease". Due to the possibly conflicting documentation, please clarify/confirm below, in your clinical opinion, regarding NSTEMI. ( x ) NSTEMI ( ) NSTEMI Ruled-Out Physician's Response(s): Thank you Yoon Gagnon Principal Diagnosis: "that condition established after study, to be chiefly responsible for occasioning the admission of the patient to the hospital for care." Co-Existing Principal Diagnosis: "when two or more diagnoses equally meet the criteria for principal diagnosis as determined by the circumstances of admission, diagnostic work up, and/or therapy provided, and the Alphabetic Index, Tabular List, or another coding guideline does not provide sequencing direction, any one of the diagnoses may be sequenced first." "When the physician has documented what appears to be a current diagnosis in the body of the record, but has not included the diagnosis in the final diagnostic statement, the physician should be asked whether the diagnosis should be added." (Source Coding Clinic 2 QTR90. p3-4) MARIO
== END 2020-06-15 20:05 | disposition short-term general hospital (02) | DRG 282 ==
LOC: ED 19:23 → 1E 21:21 → SUATTDRO 21:21 → 1E 23:12

== ENCOUNTER 2022-12-26 12:23 | Inpatient (IN) ==
[2022-12-26] MEDS ORDERED: ONDANSETRON INJ 2 MG/ML 2 ML VIAL IV STA (12:42)
[2022-12-26] MEDS ORDERED: ACETAMINOPHEN 1,000 MG/100 ML VIAL IV STA (12:42)
[2022-12-26] MEDS ORDERED: SODIUM CHLORIDE 0.9% 1000ML 1,000 ML IV SCH (12:45)
[2022-12-26] MEDS ORDERED: PANTOprazole 40 MG in SYRINGE 0 ML IV ONE (12:46)
--- NOTE | 2022-12-26 13:04 | Emergency Department Note ---
Impression & Plan Abdominal pain, Nausea & vomiting, Acute cholecystitis, Abnormal LFTs ED Provider Note ED Provider Note NAME: ANNETTE FRANCE AGE:62 SEX: Male : 1960 ARRIVES VIA: Private vehicle INFORMANT: Patient ED PROVIDER(s): Ruby Caruso DO CHIEF COMPLAINT: Abdominal pain, nausea/vomiting HPI: This is a 62-year-old male presents emergency department due to concern for 2 weeks of intermittent abdominal pain, nausea and vomiting. Patient states symptoms first began while camping and he attributed it to eating spicy sausage. He states his symptoms would improve but then when he would eat something again he would have recurrent symptoms. He states the time span between eating and having evolving pain and nausea is approximately an hour or so. He states abdominal pain has been mostly central. He states with the first episode after camping he did have some accompanying diarrhea, he has not had diarrhea since then. He states he is passing gas. No prior abdominal surgeries. He denies any accompanying fevers or chills. He states he does take a low-dose aspirin daily, no other anticoagulation. He denies any hematemesis. Patient states he has tried to eat several things over the course of the last 2 weeks however he has consistently ended up symptomatic. He states they did go see his PCP and were sent for an outpatient CT earlier today. No recent change in medications. PAST MEDICAL HISTORY:See Below PAST SURGICAL HISTORY:See Below FAMILY HISTORY:See Below SOCIAL HISTORY:See Below HOME MEDICATIONS:See Below ALLERGIES:See Below VITALS:See Below PHYSICAL EXAMINATION: GENERAL: alert, well appearing, well nourished, no distress, non-toxic EYE EXAM: normal conjunctiva, PERRL and EOM's grossly intact OROPHARYNX: no exudate, no erythema, lips, buccal mucosa, and tongue normal and mucous membranes are moist NECK: supple, no nuchal rigidity, no adenopathy, non-tender LUNGS: Clear to auscultation. Normal chest wall mechanics, no w/r/r HEART: no murmurs, S1 normal and S2 normal ABDOMEN: abdomen soft, tenderness in the mid epigastric region as well as the central lower abdomen, normo-active bowel sounds, no masses, no rebound or guarding. Dull to percussion. SKIN: no rashes, petechiae, orbruising UPPER EXTREMITIES: upper extremities are grossly normal. FROM, nml pulses b/l. LOWER EXTREMITIES: No pitting edema. FROM, nml pulses b/l. NEURO EXAM: Normal sensorium, cranial nerves II-XII grossly intact, normal speech, no facial droop,nogross weakness of arms, no gross weakness of legs. Gross sensation intact. No ataxia. Vital Signs: reviewed and remarkable Differential Diagnosis: Viral syndrome, colitis, bowel obstruction, diverticulitis, pancreatitis, cholecystitis, GI bleed, perforation, as well as others were considered MEDICAL DECISION MAKING: This is a 62-year-old male presents emergency room due to 2 weeks of intermittent abdominal pain, nausea and vomiting. Patient afebrile and vital signs stable. Labs drawn and sent, IV established, EKG performed and interpret ed by me at bedside and patient monitored on telemetry. Patient started on IV fluids and given medication for pain and nausea. Patient had had outpatient CT, this was reviewed with him at bedside. Patient had no leukocytosis although had significantly elevated LFTs. MRCP ordered and case discussed with on-call general surgery as well as hospitalist team. Patient made aware of all results and plan. Consultation(s): 1355: Discussed with Barbara haynes PA-C with general surgery. They will see in consult, recommends medical admission with MRCP and likely GI consult. 1411: Discussed with Dr. Bradford. ER Treatment Provided: See below Diagnostics Interpreted By Me: -ECG: Normal sinus at 88, normal axis, normal intervals, no acute ST/T wave changes -Cardiac Monitoring: An order was placed for continuous cardiac monitoring. The monitor shows a rate of 86 with normal sinus rhythm. -Laboratory studies: As stated above and show below. -Imaging studies: [] Triage Nursing Note Reviewed Prior/Outside Records Reviewed -outpatient CT record Past Med/Surg History Medical History Aortic stenosis Aortic stenosis HX Clarke's esophagus last EGD 2018 - due again in 2021 CAD (coronary artery disease) Cancer SQUAMOUS CELL Carpal tunnel syndrome, bilateral Cervical radiculopathy Cervical spondylosis Coronary artery disease s/p CABG x 1 VANN to LAD 05/2020-F/U DR SHELTON HAMLIN Degenerative cervical disc GERD (gastroesophageal reflux disease) History of colon polyps History of Hodgkin's lymphoma Hodgkin disease (1987) chemo/radiation > finished chemo 32 yrs ago Hypothyroidism Impaired fasting glucose Mitral regurgitation Mitral regurgitation Pulmonary hypertension Sleep apnea doesn't use as prescribed Spinal stenosis Surgical History History of arthroscopy of left knee meniscus repair History of cardiac cath May 2020 > no stents History of colonoscopy History of esophagogastroduodenoscopy (EGD) History of thyroidectomy, total History of tooth extraction S/P aortic valve replacement (05/2020) bioprosthetic valve 05/2020 S/P CABG x 1 (05/2020) May 2020 > [place] S/P foot surgery, right Status post biopsy of thyroid gland benign Family History Uncle Myocardial infarction Mother Breast cancer Other No family history of adverse response to anesthesia Denies family history of Ovarian cancer Prostate cancer Lung cancer Colonic polyp Social History Smoking Status: Never smoker Second Hand Exposure: No; Do You Dip or Chew Tobacco: No; Tobacco Cessation Education Requested by Patient: No Hx Alcohol Use: Yes Alcohol type: beer Hx Substance Use: No Preferred Language: Luxembourgish Communication Ability: Effective Communication Ability Comment: pt will need to be present for discharge, does not do well remembering Acquisition Cost Estimator Required: No Beliefs That Will Affect Care: None marital status: Current Living Situation: Spouse current occupational status: retired current occupation: Other Information That Helps Us Care for You: No Feels Safe at Home: Yes Safety Concerns: Feels Safe At This Time Physical Activity Frequency: 1-2 Times per Week Seatbelt Use: always Sunscreen Use: No Assistive Devices: None Allergies Allergies Allergy/AdvReac Type Severity Reaction Status Date / Time No Known Allergies Allergy Verified 12/26/22 08:30 Home Meds Home Medications Medication Instructions Recorded Confirmed glucosamine-chondroitin 500 mg-400 2 tab PO QAM 06/14/20 12/26/22 mg tablet multivitamin 1 tab PO QAM 06/14/20 12/26/22 fexofenadine 180 mg tablet 180 mg PO QAM 07/03/21 12/26/22 levothyroxine 137 mcg tablet 137 mcg PO QAM 12/26/22 12/26/22 Previous Rx's Medication Instructions Recorded aspirin 81 mg tablet,delayed 81 mg PO QAM #90 tabs 06/15/20 release amoxicillin 500 mg capsule 2,000 mg PO ONCE PRN Dental 08/22/21 procedure 1 day #4 caps omeprazole 20 mg capsule,delayed 20 mg PO QAM #90 caps 02/12/22 release atorvastatin 80 mg tablet 80 mg PO QAM #90 tabs 03/26/22 metoprolol succinate 50 mg 50 mg PO QAM #90 tabs 09/26/22 tablet,extended release 24 hr Results & Data (ED) Vital Signs Vital Signs - 24 hr 12/26/22 12:25 12/26/22 13:13 Temperature 36.4 C L Temperature Source Temporal Artery Scan Pulse Rate 102 H 85 Respiratory Rate 18 Respiratory Effort / Characteristics Non-Labored Respiratory Depth Normal Blood Pressure 132/88 Blood Pressure Mean 102 Blood Pressure Position Sitting Pulse Oximetry 94 Oxygen Delivery Method Room Air Sepsis Recent Fever Within 48 Hours No Sepsis New/Unexplained Change in Mental Status No Sepsis Action Taken by Nursing No Action Required Laboratory Data 12/26/22 12:39 12/26/22 12:39 Lab Results 12/26/22 12/26/22 12/26/22 Range/Units 12:39 12:39 12:39 WBC 8.45 (4.8-10.8) K/ul RBC 4.94 (4.70-6.10) M/uL Hgb 14.7 (14.0-18.0) g/dl Hct 43.4 (42.0-52.0) % MCV 87.9 (80.0-100.0) fL MCH 29.8 (25.0-34.0) pg MCHC 33.9 (32.0-36.0) g/dL RDW Std Deviation 42.5 (36.4-46.3) fL RDW Coeff of Ashlyn 13.2 (11.5-14.5) % Plt Count 227 (130-400) K/uL MPV 11.0 (9.4-12.4) fL Immature Gran % (Auto) 0.4 % Neut % (Auto) 68.9 % Lymph % (Auto) 17.6 % Howard % (Auto) 11.4 % Eos % (Auto) 1.3 % Baso % (Auto) 0.4 % Neut # (Auto) 5.83 (1.40-6.50) K/uL Lymph # (Auto) 1.49 (1.2-3.4) K/uL Howard # (Auto) 0.96 H (0.11-0.59) K/uL Eos # (Auto) 0.11 (0-0.50) K/uL Baso # (Auto) 0.03 (0-0.2) K/uL Immature Gran # (Auto) 0.03 (0.01-0.20) K/uL PT 11.2 (9.0-12.0) Seconds INR 1.0 (0.9-1.1) Sodium 138 (136-145) mmol/L Potassium 3.7 (3.5-5.1) mmol/L Chloride 104 (98-107) mmol/L Carbon Dioxide 26 (21-32) mmol/L Anion Gap 8 (3-11) BUN 9 (6-23) mg/dl Creatinine 0.76 (0.6-1.4) mg/dl Est Cr Clr Drug Dosing 134.2 ml/min Est GFR ( Amer) 114.9 ml/min Est GFR (Non-Af Amer) 99.2 ml/min BUN/Creatinine Ratio 11.8 (10-20) Glucose 105 H (70-99(Fasting)) mg/dl Calcium 9.4 (8.6-10.3) mg/dl Magnesium 1.9 (1.7-2.4) mg/dl Total Bilirubin 4.7 H (0.2-1.0) mg/dl AST 247 H (13-39) U/L ALT 347 H (7-52) U/L Alkaline Phosphatase 283 H (34-104) U/L Troponin I High Sens 15.2 (0-20) pg/ml Total Protein 7.3 (6.0-8.3) gm/dl Albumin 4.1 (3.4-5.0) gm/dl Globulin 3.2 (2.5-4.0) gm/dl Albumin/Globulin Ratio 1.3 (0.9-2) Lipase 28 (11-82) U/L SARS-CoV-2, RNA, NAAT (NEGATIVE) 12/26/22 Range/Units 13:00 WBC (4.8-10.8) K/ul RBC (4.70-6.10) M/uL Hgb (14.0-18.0) g/dl Hct (42.0-52.0) % MCV (80.0-100.0) fL MCH (25.0-34.0) pg MCHC (32.0-36.0) g/dL RDW Std Deviation (36.4-46.3) fL RDW Coeff of Ashlyn (11.5-14.5) % Plt Count (130-400) K/uL MPV (9.4-12.4) fL Immature Gran % (Auto) % Neut % (Auto) % Lymph % (Auto) % Howard % (Auto) % Eos % (Auto) % Baso % (Auto) % Neut # (Auto) (1.40-6.50) K/uL Lymph # (Auto) (1.2-3.4) K/uL Howard # (Auto) (0.11-0.59) K/uL Eos # (Auto) (0-0.50) K/uL Baso # (Auto) (0-0.2) K/uL Immature Gran # (Auto) (0.01-0.20) K/uL PT (9.0-12.0) Seconds INR (0.9-1.1) Sodium (136-145) mmol/L Potassium (3.5-5.1) mmol/L Chloride (98-107) mmol/L Carbon Dioxide (21-32) mmol/L Anion Gap (3-11) BUN (6-23) mg/dl Creatinine (0.6-1.4) mg/dl Est Cr Clr Drug Dosing ml/min Est GFR ( Amer) ml/min Est GFR (Non-Af Amer) ml/min BUN/Creatinine Ratio (10-20) Glucose (70-99(Fasting)) mg/dl Calcium (8.6-10.3) mg/dl Magnesium (1.7-2.4) mg/dl Total Bilirubin (0.2-1.0) mg/dl AST (13-39) U/L ALT (7-52) U/L Alkaline Phosphatase (34-104) U/L Troponin I High Sens (0-20) pg/ml Total Protein (6.0-8.3) gm/dl Albumin (3.4-5.0) gm/dl Globulin (2.5-4.0) gm/dl Albumin/Globulin Ratio (0.9-2) Lipase (11-82) U/L SARS-CoV-2, RNA, NAAT NEGATIVE (NEGATIVE) Administered Medications Atorvastatin Calcium (Atorvastatin 40 Mg Tab) [facility] [place] Stop: 01/26/23 08:59 Last Admin: 12/27/22 08:44 Dose: 80 mg Documented By: MK Fexofenadine HCl (Fexofenadine Hcl 180 Mg Tab) 180 [facility] [place] Stop: 01/26/23 08:59 Last Admin: 12/27/22 08:44 Dose: 180 mg Documented By: MK Lactated Ringer's (Lr) 1,000 mls @ 125 mls/hr IV .Q8H KEVIN Stop: 01/25/23 19:44 Last Admin: 12/28/22 02:14 Dose: 125 mls/hr Documented By: Infusion: 12/28/22 02:14 Dose: 0 mls/hr Documented By: ADGill Admin: 12/27/22 19:52 Dose: 125 mls/hr Documented By: Infusion: 12/27/22 19:52 Dose: 125 mls/hr Documented By: ADGill Admin: 12/27/22 16:05 Dose: 125 mls/hr Documented By: Infusion: 12/27/22 15:53 Dose: 0 mls/hr Documented By: Admin: 12/27/22 03:55 Dose: 125 mls/hr Documented By: Infusion: 12/27/22 03:55 Dose: 125 mls/hr Documented By: Admin: 12/26/22 20:05 Dose: 125 mls/hr Documented By: EM Metronidazole (Flagyl) 500 mg in 100 mls @ 100 mls/hr IV Q8H KEVIN; Protocol Stop: 01/06/23 00:00 Last Infusion: 12/28/22 01:30 Dose: 0 mls/hr Documented By: Admin: 12/28/22 00:31 Dose: 100 mls/hr Documented By: Infusion: 12/27/22 17:16 Dose: 0 mls/hr Documented By: Admin: 12/27/22 16:02 Dose: 100 mls/hr Documented By: Infusion: 12/27/22 09:45 Dose: 0 mls/hr Documented By: Admin: 12/27/22 08:43 Dose: 100 mls/hr Documented By: Infusion: 12/27/22 01:19 Dose: 0 mls/hr Documented By: JUAN M Admin: 12/27/22 00:15 Dose: 100 mls/hr Documented By: JUAN M Ceftriaxone Sodium 2,000 mg/ (Dextrose) 70 mls @ 140 mls/hr IV Q24H [facility]; Protocol Stop: 01/06/23 13:59 Last Infusion: 12/27/22 15:54 Dose: 0 mls/hr Documented By: Admin: 12/27/22 14:26 Dose: 140 mls/hr Documented By: MK Levothyroxine Sodium (Levothyroxine Sodium 137 Mcg Tablet) 137 mcg PO DAILYBB [facility] Stop: 01/26/23 06:29 Last Admin: 12/27/22 05:50 Dose: 137 mcg Documented By: JUAN M Metoprolol Succinate (Metoprolol Succ 50mg Ext Rel Tab) 50 mg PO QAM [facility] Stop: 01/26/23 08:59 Last Admin: 12/27/22 08:44 Dose: 50 mg Documented By: MK Ondansetron HCl (Ondansetron Inj 2 Mg/Ml 2 Ml Vial) 4 mg IV Q4H PRN PRN Reason: Nausea Stop: 01/25/23 19:47 Last Admin: 12/27/22 08:45 Dose: 4 mg Documented By: MK Pantoprazole Sodium (Pantoprazole 40 Mg Tab) 40 mg PO BID [facility]; Protocol Stop: 01/26/23 20:59 Last Admin: 12/27/22 19:51 Dose: 40 mg Documented By: ADB Discontinued Medications Glucagon (Glucagon For Inj 1 Mg Vial) Confirm Administered Dose 1 mg .ROUTE .STK-MED ONE Stop: 12/27/22 14:46 Last Admin: 12/27/22 17:41 Dose: Not Given Documented By: MK Sodium Chloride (Nss 1000ml) 1,000 mls @ 125 mls/hr IV .Q8H KEVIN Stop: 01/25/23 12:44 Last Infusion: 12/26/22 18:49 Dose: 0 mls/hr Documented By: LJYasmin Admin: 12/26/22 13:00 Dose: 125 mls/hr Documented By: QGV Acetaminophen (Ofirmev) 1,000 mg in 100 mls @ 400 mls/hr IV NOW STA Stop: 12/26/22 12:56 Last Infusion: 12/26/22 13:20 Dose: 0 mls/hr Documented By: Admin: 12/26/22 13:00 Dose: 400 mls/hr Documented By: QGV Pantoprazole Sodium 40 mg/ (Syringe) 10 mls @ 5 mls/min IV NOW ONE Stop: 12/26/22 12:47 Last Admin: 12/26/22 13:17 Dose: 5 mls/min Documented By: GAURI Metronidazole (Flagyl) 500 mg in 100 mls @ 100 mls/hr IV NOW STA; Protocol Stop: 12/26/22 15:06 Last Infusion: 12/26/22 18:49 Dose: 0 mls/hr Documented By: Admin: 12/26/22 16:10 Dose: 100 mls/hr Documented By: QGV Ceftriaxone Sodium (Rocephin) 2,000 mg in 70 mls @ 140 mls/hr IV NOW STA Stop: 12/26/22 14:38 Last Infusion: 12/26/22 15:32 Dose: 0 mls/hr Documented By: Admin: 12/26/22 14:21 Dose: 140 mls/hr Documented By: QGV Metoprolol Succinate (Metoprolol Succ 50mg Ext Rel Tab) 50 mg PO NOW STA Stop: 12/26/22 15:46 Last Admin: 12/26/22 16:25 Dose: 50 mg Documented By: DEBBIE Ondansetron HCl (Ondansetron Inj 2 Mg/Ml 2 Ml Vial) 4 mg IV NOW STA Stop: 12/26/22 12:43 Last Admin: 12/26/22 13:00 Dose: 4 mg Documented By: QGV Pantoprazole Sodium (Pantoprazole 40 Mg Tab) 40 mg PO [facility]; Protocol Stop: 01/26/23 08:59 Last Admin: 12/27/22 08:44 Dose: 40 mg Documented By: MK Discharge Plan Visit Data Chief Complaint: Abdominal Pain Stated Complaint: ABDOMINAL PAIN,DIARRHEA ED Provider: Ruby Caruso Discharge Problem: Abdominal pain, Nausea & vomiting, Acute cholecystitis, Abnormal LFTs Patient Disposition: Admitted As Inpatient Discharge Instructions Interventions: ED Discharge Assessment Last Done: 12/26/22 16:25
[2022-12-26 13:35] LABS: Basophils # (auto) 0.03 K/uL (0-0.2); Basophils % (auto) 0.4 %; Eosinophils # (auto) 0.11 K/uL (0-0.50); Eosinophils % (auto) 1.3 %; Hematocrit (blood only) 43.4 % (42.0-52.0); Hemoglobin 14.7 g/dl (14.0-18.0); Immature Granulocytes # (auto) 0.03 K/uL (0.01-0.20); Immature Granulocytes % (auto) 0.4 %; Lymphocytes # (auto) 1.49 K/uL (1.2-3.4); Lymphocytes % (auto) 17.6 %; Mean Corpuscular Hemoglobin 29.8 pg (25.0-34.0); Mean Corpuscular Hgb Conc 33.9 g/dL (32.0-36.0); Mean Corpuscular Volume 87.9 fL (80.0-100.0); Monocytes # (auto) 0.96 K/uL (0.11-0.59); Monocytes % (auto) 11.4 %; Neutrophils # (auto) 5.83 K/uL (1.40-6.50); Neutrophils % (auto) 68.9 %; Platelet Count 227 K/uL (130-400); RDW Coefficient of Variation 13.2 % (11.5-14.5); RDW Standard Deviation 42.5 fL (36.4-46.3); Red Blood Count 4.94 M/uL (4.70-6.10); White Blood Count 8.45 K/ul (4.8-10.8)
[2022-12-26 13:42] LABS: Albumin Globulin Ratio 1.3 (0.9-2); Albumin Level 4.1 gm/dl (3.4-5.0); BUN Creatinine Ratio 11.8 (10-20); Bilirubin,Total 4.7 mg/dl (0.2-1.0); Calcium 9.4 mg/dl (8.6-10.3); Creatinine Clr Calc Pharmacy 134.2 ml/min; Est GFR (African American) 114.9 ml/min; Est GFR (Non-African American) 99.2 ml/min; Globulin 3.2 gm/dl (2.5-4.0); Magnesium 1.9 mg/dl (1.7-2.4); Potassium 3.7 mmol/L (3.5-5.1); Total Protein 7.3 gm/dl (6.0-8.3)
[2022-12-26 13:47] LABS: Troponin I High Sensitivity 15.2 pg/ml (0-20)
[2022-12-26 14:03] LABS: Prothrombin Time 11.2 Seconds (9.0-12.0)
[2022-12-26] MEDS ORDERED: metroNIDAZOLE 500 MG/100 ML BAG IV STA (14:07)
[2022-12-26] MEDS ORDERED: cefTRIAXone SODIUM 2,000 MG in DEXTROSE 5% AD-VAN 50 ML IV STA (14:07)
[2022-12-26] MEDS ORDERED: cefTRIAXone SODIUM 2,000 MG/70 ML BAG IV STA (14:09)
--- NOTE | 2022-12-26 14:12 | History & Physical Report ---
Date of Service December 26, 2022 Assessment & Plan (1) Acute cholecystitis: Plan: Odd location of pain but convincing labs matching imaging NPO, IV fluids Ceftriaxone + metronidazole Consult general surgery MRCP - consult gastroenterology depending on results (2) GERD (gastroesophageal reflux disease): Plan: Switch omeprazole for pantoprazole 40mg PO (3) Hypothyroidism: Plan: TSH with AM labs Continue levothyroxine (4) S/P aortic valve replacement: Plan: Bioprosthetic valve (5) Coronary artery disease: Plan: ASA on hold for operation Continue metoprolol including morning of surgery Continue atorvastatin (6) Sleep apnea: Plan: Noted in chart but patient denies any history of this Recommend following up outpatient Plan VTE Prophylaxis - deferred pending ERCP/surgery decision Diet - NPO Disposition - admit to med/surg Admission and Anticipated Discharge Date Admission Date: December 26, 2022 History of Present Illness Chief Complaint: Abdominal pain Primary Care Provider: Rani Brown MD Juan Carlos Aggarwal is a 62 year old male who presents to the ER due to outpatient CT showing acute cholecystitis. He reports abdominal pain intermittently, around umbilicus since eating a spicy sausage 2 weeks ago. Initially nausea and vomiting for next 2 days but now just nausea alone. Mild constipation. Reduced appetite as pain recurs on eating most thing. Associated 10 lb of weight loss. He went to his PCP office today who arranged outpatient CT which showed acute cholecystitis therefore he was referred to the ER for ongoing management. He has a history of cardiac bypass - May 2020May [facility] to [facility]. No current issues with chest pain or shortness of breath on exertion. In addition has a bovine aortic heart valve replacement at that same time for severe aortic stenosis. No problems since with heart failure. Allergies Allergy/AdvReac Type Severity Reaction Status Date / Time No Known Allergies Allergy Verified 12/26/22 08:30 Home Medications Medication Instructions Recorded Confirmed Type glucosamine-chondroitin 500 mg-400 2 tab PO QAM 06/14/20 12/26/22 History mg tablet multivitamin 1 tab PO QAM 06/14/20 12/26/22 History aspirin 81 mg tablet,delayed 81 mg PO QAM #90 tabs 06/15/20 12/26/22 Rx release fexofenadine 180 mg tablet 180 mg PO QAM 07/03/21 12/26/22 History amoxicillin 500 mg capsule 2,000 mg PO ONCE PRN Dental 08/22/21 12/26/22 Rx procedure 1 day #4 caps omeprazole 20 mg capsule,delayed 20 mg PO QAM #90 caps 02/12/22 12/26/22 Rx release atorvastatin 80 mg tablet 80 mg PO QAM #90 tabs 03/26/22 12/26/22 Rx metoprolol succinate 50 mg 50 mg PO QAM #90 tabs 09/26/22 12/26/22 Rx tablet,extended release 24 hr levothyroxine 137 mcg tablet 137 mcg PO QAM 12/26/22 12/26/22 History Past Med/Surg History Medical History Aortic stenosis Clarke's esophagus Cancer Carpal tunnel syndrome, bilateral Cervical radiculopathy Cervical spondylosis Coronary artery disease Degenerative cervical disc GERD (gastroesophageal reflux disease) History of colon polyps Hodgkin disease (1987) Hypothyroidism Impaired fasting glucose Mitral regurgitation Sleep apnea Spinal stenosis Surgical History History of arthroscopy of left knee History of cardiac cath History of colonoscopy History of esophagogastroduodenoscopy (EGD) History of thyroidectomy, total History of tooth extraction S/P aortic valve replacement (05/2020) S/P CABG x 1 (05/2020) S/P foot surgery, right Status post biopsy of thyroid gland Family History Uncle Myocardial infarction Mother Breast cancer Other No family history of adverse response to anesthesia Denies family history of Ovarian cancer Prostate cancer Lung cancer Colonic polyp Social History Smoking Status: Never smoker Second Hand Exposure: No; Do You Dip or Chew Tobacco: No; Tobacco Cessation Education Requested by Patient: No Hx Alcohol Use: Yes Alcohol type: beer Hx Substance Use: No Preferred Language: Welsh Communication Ability: Effective Communication Ability Comment: pt will need to be present for discharge, 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 Beliefs That Will Affect Care: None marital status: Current Living Situation: Spouse current occupational status: retired current occupation: Other Information That Helps Us Care for You: No Feels Safe at Home: Yes Safety Concerns: Feels Safe At This Time Physical Activity Frequency: 1-2 Times per Week Seatbelt Use: always Sunscreen Use: No Assistive Devices: Glasses Review of Systems Review of Systems: All systems reviewed & are unremarkable except as noted in HPI & below Physical Exam Constitutional: WD/WN, vitals as above Eyes: PERRL, conjunctivae normal, anicteric sclerae ENMT: external ear and nose normal, oropharynx normal Respiratory: normal respiratory effort, lungs clear to auscultation Cardiovascular: RRR, no murmur, no edema Gastrointestinal (Abdomen): Inspection/Auscultation: abdomen normal to inspec tion; abdomen not distended Percussion/Palpation: + abdomen tender (epigastric and umbilical without rebound) and abdomen soft; no guarding and abdomen not rigid Musculoskeletal: no cyanosis or clubbing, extremities motor strength 5/5 Skin: no rashes, warm and dry Neurologic: moves all extremities and awake; not confused Psychiatric: A+Ox3, euthymic affect Results & Data Results & Data Vital Signs (Past 12 Hours) Vital Signs Temp Pulse Resp BP Pulse Ox O2 Del Method 12/26/22 13:13 85 12/26/22 12:25 36.4 C L 102 H 18 132/88 94 Room Air Laboratory Results Abnormal lab results 12/26/22 12/26/22 Range/Units 12:39 12:39 [place] # (Auto) 0.96 H (0.11-0.59) K/uL Glucose 105 H (70-99(Fasting)) mg/dl Total Bilirubin 4.7 H (0.2-1.0) mg/dl AST 247 H (13-39) U/L ALT 347 H (7-52) U/L Alkaline Phosphatase 283 H (34-104) U/L Diagnostic Findings CT SCAN OF THE ABDOMEN AND PELVIS WITHOUT IV CONTRAST CLINICAL HISTORY: Periumbilical abdominal pain. COMPARISON STUDY: Abdominal CT dated 02/28/2007. TECHNIQUE: CT scan of the abdomen and pelvis is performed from the lung bases to the proximal femora. Images are reviewed in the axial, sagittal, and coronal planes. IV contrast was not administered for this examination. Note that the examination was performed in suboptimal fashion without IV contrast. Oral contrast was utilized. A dose lowering technique was utilized adhering to the principles of ALARA. CT DOSE: 1535.53 mGy.cm FINDINGS: Lung bases: The patient is status post midline sternotomy. The heart is enlarged and without pericardial effusion. The coronary arteries are densely calcified. The lung bases are clear noting bibasilar scarring/atelectasis. A small hiatal hernia is noted. Liver: The unenhanced liver is normal in size, contour, and attenuation. There is no intrahepatic biliary ductal dilatation. Gallbladder: There are calcified gallstones. The gallbladder is distended, and the wall is thickened with surrounding inflammation. The appearance is consistent with acute cholecystitis. Spleen: Normal in size and attenuation. Pancreas: Unremarkable. Adrenal glands: Unremarkable. Kidneys: The unenhanced kidneys are normal in size and without hydronephrosis. There are no renal calculi identified. Subcentimeter cortical hypodensities likely represent cysts but are too small for definitive characterization. Abdominal vasculature: The abdominal aorta is normal in course and caliber noting moderate to advanced atherosclerotic calcification. Bowel: There is moderate sigmoid diverticulosis without CT evidence of acute diverticulitis. No bowel obstruction is seen. Enteric contrast reaches the colon. There is moderate colonic fecal retention. The appendix is well- visualized and normal. Peritoneum: There is no intraperitoneal free air or abdominal ascites. Lymphadenopathy: None. Pelvic viscera: The prostate gland is diminutive and heterogeneous. The bladder wall appears mildly thickened/trabeculated indicating chronic outlet obstruction. There are small bilateral fat-containing Inguinal hernias. Skeletal structures: The skeletal structures are osteopenic. There is mild to moderate lumbosacral spondylosis. Sclerotic change is noted in the pubic symphysis. No lytic or blastic lesions are seen. IMPRESSION: 1. Cholelithiasis with acute cholecystitis. Surgical evaluation is advised. 2. Cardiomegaly. 3. Sigmoid diverticulosis without CT evidence of acute diverticulitis. 4. Additional findings as above. Medications Administered ER Medications Given: ECG Rate (beats per minute): 88 Rhythm: normal sinus Findings: + other (Left ventricular hypertrophy, old inferior infarct) Comparison ECG Date: from (June 14, 2020) Change: the following changes noted (borderline criteria for inferior infarct now present) Code Status & VTE Plan Code Status Full VTE Prophylaxis Plan VTE Prophylaxis will be ordered: Yes PG Care Time/CCT Total # of Minutes Spent Total Time Spent with Patient: Total time spent is greater than 50% in coordination of care (as documented) at patient's floor/unit and/or counseling patient: Coding Level of Care Code 06859 INT INP/OBS CARE Diagnoses Acute cholecystitis K81.0 GERD (gastroesophageal reflux disease) K21.9 Esophagitis presence: esophagitis presence not specified Hypothyroidism E03.9 Hypothyroidism type: unspecified S/P aortic valve replacement Z95.2 Coronary artery disease I25.10 Sleep apnea G47.30 (2) GERD (gastroesophageal reflux disease) Esophagitis presence: esophagitis presence not specified Qualified Code(s): K21.9 - Gastro-esophageal reflux disease without esophagitis (3) Hypothyroidism Hypothyroidism type: unspecified Qualified Code(s): E03.9 - Hypothyroidism, unspecified
--- NOTE | 2022-12-26 14:20 | Electrocardiogram Report ---
Test Reason : Blood Pressure : / mmHG Vent. Rate : 088 BPM Atrial Rate : 088 BPM P-R Int : 144 ms QRS Dur : 086 ms QT Int : 372 ms P-R-T Axes : 014 014 069 degrees QTc Int : 450 ms Normal sinus rhythm Left ventricular hypertrophy with repolarization abnormality Old Inferior infarct Abnormal ECG When compared with ECG of 14-JUN-2020 19:33, Fusion complexes are no longer Present Borderline criteria for Inferior infarct are now Present Confirmed by Too Chan ([id number]) on 12/26/2022 2:19:51 PM Referred By: Confirmed By:Too Chan
--- NOTE | 2022-12-26 14:42 | XRay Report ---
XR chest 1V portable CLINICAL HISTORY: pre-op TECHNIQUE: Single frontal radiograph of the chest was obtained. Comparison: Comparison is made to chest radiograph 07/10/2021 FINDINGS: Median sternotomy wires are unchanged. The cardiomediastinal silhouette is normal. Calcified lymph no sandy are seen. The lungs are clear. No evidence of pleural effusion or pneumothorax. IMPRESSION: No acute chest disease. ACT 112: Negative or not required by law. Electronically signed by: Ion Patel M.D. 12/26/2022 2:40 PM
--- NOTE | 2022-12-26 15:00 | Surgery Consultation ---
Date of Consultation December 26, 2022 Assessment & Plan (1) Abdominal pain: (2) Acute cholecystitis: Plan 62 year-old male with 1.5 week history of mid periumbilical abdominal pain with associated nausea, belching, and bloating postprandial presented to ED from home after evaluation from PCP office today and outpatient CT scan showing acute cholecystitis. Labs show no leukocytosis however t. bili elevated at 4.7 as well as LFTs and alk phos are elevated. Lipase wnl. Abdomen is soft with tenderness in RUQ and epigastrium however negative Zhu's. Awaiting MRCP given elevated t. bili and lfts. Plan: Discussed with patient and imaging findings and laboratory findings. D iscussed possibility of biliary obstruction due to elevated labs and need for addition imaging (MRCP) +/- ERCP prior to cholecystectomy. His symptoms are consistent with biliary colic and now developing acute cholecystitis. Will await results of MRCP and determine timing for cholecystectomy. Continue IV antibiotics Continue antiemetics and pain management as needed follow labs continue medical management Discussed with Dr. Andrews who agrees with above , see addendum for further recommendations/plan. History of Present Illness Reason for Consultation: Acute cholecystitis, elevated LFTs Requesting Physician: Bill Bradford MD Attending Physician: Bill Bradford MD History of Present Illness Juan Carlos is a 62 yo male with past medical history of GERD, sleep apnea, dyslipidemia, hypothyroidism, Hodgkin's disease s/p chemo and radiation in his 20's, george's esophagus, CAD and severe aortic stenosis s/p valve replacement and CABG x1 May 2020 at [facility] [place], and spinal stenosis who presented to emergency department after outpatient CT scan showing acute cholecystitis. He has been having mid periumbilical abdominal pain that waxes and wanes for about 1.5 weeks after eating spicy sausage while camping. Pain worse with lying flat and eating. Pain usually comes on about 30 minutes to an hour after eating and lasts for a few hours then resolved. Associated vomiting initially but not persistent. Associated belching and bloating sensation with increased flatus. No blood in stools, no melena, no acholic stools. No fevers, chills, blood in urine or difficulty urinating. No history of gallbladder issues. Takes baby aspirin. Has not had any issues since his cardiac procedures in May 2020. No chest pain at rest or exertion. No shortness of breath. Follows cardiology every 6 months. Last ECHO done July 2020 with EF of 60-65%. ER workup included labs which showed no leukocytosis however elevated total bilirubin of 4.7 and elevated LFTs AST 247 ALT 347 and Alk phos 283, lipase wnl. CT scan of abdomen and pelvis showing acute calculous cholecystitis. Currently states he is feeling better. Slightly nauseated after drinking oral contrast but only having mild periumbilical pain. Pain medication was given which has helped. Allergies Allergy/AdvReac Type Severity Reaction Status Date / Time No Known Allergies Allergy Verified 12/26/22 08:30 Home Medications Medication Instructions Recorded Confirmed Type glucosamine-chondroitin 500 mg-400 2 tab PO QAM 06/14/20 12/26/22 History mg tablet multivitamin 1 tab PO QAM 06/14/20 12/26/22 History aspirin 81 mg tablet,delayed 81 mg PO QAM #90 tabs 06/15/20 12/26/22 Rx release fexofenadine 180 mg tablet 180 mg PO QAM 07/03/21 12/26/22 History amoxicillin 500 mg capsule 2,000 mg PO ONCE PRN Dental 08/22/21 12/26/22 Rx procedure 1 day #4 caps omeprazole 20 mg capsule,delayed 20 mg PO QAM #90 caps 02/12/22 12/26/22 Rx release atorvastatin 80 mg tablet 80 mg PO QAM #90 tabs 03/26/22 12/26/22 Rx levothyroxine 137 mcg tablet 137 mcg PO DAILY #90 tabs 07/27/22 12/26/22 Rx metoprolol succinate 50 mg 50 mg PO QAM #90 tabs 09/26/22 12/26/22 Rx tablet,extended release 24 hr Patient History Medical History Aortic stenosis George's esophagus Cancer Carpal tunnel syndrome, bilateral Cervical radiculopathy Cervical spondylosis Coronary artery disease Degenerative cervical disc GERD (gastroesophageal reflux disease) History of colon polyps Hodgkin disease (1987) Hypothyroidism Impaired fasting glucose Mitral regurgitation Sleep apnea Spinal stenosis Surgical History History of arthroscopy of left knee History of cardiac cath History of colonoscopy History of esophagogastroduodenoscopy (EGD) History of thyroidectomy, total History of tooth extraction S/P aortic valve replacement (05/2020) S/P CABG x 1 (05/2020) S/P foot surgery, right Status post biopsy of thyroid gland Family History Uncle Myocardial infarction Mother Breast cancer Other No family history of adverse response to anesthesia Denies family history of Ovarian cancer Prostate cancer Lung cancer Colonic polyp Social History Smoking Status: Never smoker Second Hand Exposure: No; Do You Dip or Chew Tobacco: Yes (QUIT 5+ YRS AGO); Hx Alcohol Use: Yes Alcohol type: beer Hx Substance Use: No Preferred Language: Greek Communication Ability: Effective Communication Ability Comment: pt will need to be present for discharge, does not do well remembering Netsuite Developer Required: No Beliefs That Will Affect Care: None marital status: Current Living Situation: Spouse current occupational status: retired current occupation: Feels Safe at Home: Yes Physical Activity Frequency: 1-2 Times per Week Seatbelt Use: always Sunscreen Use: No Assistive Devices: Glasses Review of Systems Review of Systems: All systems reviewed & are unremarkable except as noted in HPI & below Physical Exam Constitutional: WD/WN, vitals as above cooperative and comfortable; no acute distress and not ill appearing Respiratory: normal respiratory effort, lungs clear to auscultation Cardiovascular: RRR, no murmur, no edema Heart Sounds: normal S1 and normal S2 Gastrointestinal (Abdomen): Inspection/Auscultation: abdomen normal to inspection; abdomen not distended and no abdominal surgical scar Percussion/Palpation: + abdomen tender (RUQ on deep palpation but negative Zhu's sign, epigastrium) and abdomen soft; no guarding, abdomen not rigid and abdomen not firm Skin: no rashes, warm and dry no jaundice Psychiatric: A+Ox3, euthymic affect Results & Data Vital Signs (Past 12 Hours) Vital Signs Temp Pulse Resp BP Pulse Ox O2 Del Method 12/26/22 13:13 85 12/26/22 12:25 36.4 C L 102 H 18 132/88 94 Room Air Laboratory Results 12/26/22 12/26/22 12/26/22 Range/Units 13:00 12:39 12:39 WBC (4.8-10.8) K/ul RBC (4.70-6.10) M/uL Hgb (14.0-18.0) g/dl Hct (42.0-52.0) % MCV (80.0-100.0) fL MCH (25.0-34.0) pg MCHC (32.0-36.0) g/dL RDW Std Deviation (36.4-46.3) fL RDW Coeff of Ashlyn (11.5-14.5) % Plt Count (130-400) K/uL MPV (9.4-12.4) fL Immature Gran % (Auto) % Neut % (Auto) % Lymph % (Auto) % [place] % (Auto) % Eos % (Auto) % Baso % (Auto) % Neut # (Auto) (1.40-6.50) K/uL Lymph # (Auto) (1.2-3.4) K/uL [place] # (Auto) (0.11-0.59) K/uL Eos # (Auto) (0-0.50) K/uL Baso # (Auto) (0-0.2) K/uL Immature Gran # (Auto) (0.01-0.20) K/uL PT 11.2 (9.0-12.0) Seconds INR 1.0 (0.9-1.1) Sodium 138 (136-145) mmol/L Potassium 3.7 (3.5-5.1) mmol/L Chloride 104 (98-107) mmol/L Carbon Dioxide 26 (21-32) mmol/L Anion Gap 8 (3-11) BUN 9 (6-23) mg/dl Creatinine 0.76 (0.6-1.4) mg/dl Est Cr Clr Drug Dosing 134.2 ml/min Est GFR ( Amer) 114.9 ml/min Est GFR (Non-Af Amer) 99.2 ml/min BUN/Creatinine Ratio 11.8 (10-20) Glucose 105 H (70-99(Fasting)) mg/dl Calcium 9.4 (8.6-10.3) mg/dl Magnesium 1.9 (1.7-2.4) mg/dl Total Bilirubin 4.7 H (0.2-1.0) mg/dl AST 247 H (13-39) U/L ALT 347 H (7-52) U/L Alkaline Phosphatase 283 H (34-104) U/L Troponin I High Sens 15.2 (0-20) pg/ml Total Protein 7.3 (6.0-8.3) gm/dl Albumin 4.1 (3.4-5.0) gm/dl Globulin 3.2 (2.5-4.0) gm/dl Albumin/Globulin Ratio 1.3 (0.9-2) Lipase 28 (11-82) U/L SARS-CoV-2, RNA, NAAT NEGATIVE (NEGATIVE) 12/26/22 Range/Units 12:39 WBC 8.45 (4.8-10.8) K/ul RBC 4.94 (4.70-6.10) M/uL Hgb 14.7 (14.0-18.0) g/dl Hct 43.4 (42.0-52.0) % MCV 87.9 (80.0-100.0) fL MCH 29.8 (25.0-34.0) pg MCHC 33.9 (32.0-36.0) g/dL RDW Std Deviation 42.5 (36.4-46.3) fL RDW Coeff of Ashlyn 13.2 (11.5-14.5) % Plt Count 227 (130-400) K/uL MPV 11.0 (9.4-12.4) fL Immature Gran % (Auto) 0.4 % Neut % (Auto) 68.9 % Lymph % (Auto) 17.6 % [place] % (Auto) 11.4 % Eos % (Auto) 1.3 % Baso % (Auto) 0.4 % Neut # (Auto) 5.83 (1.40-6.50) K/uL Lymph # (Auto) 1.49 (1.2-3.4) K/uL [place] # (Auto) 0.96 H (0.11-0.59) K/uL Eos # (Auto) 0.11 (0-0.50) K/uL Baso # (Auto) 0.03 (0-0.2) K/uL Immature Gran # (Auto) 0.03 (0.01-0.20) K/uL PT (9.0-12.0) Seconds INR (0.9-1.1) Sodium (136-145) mmol/L Potassium (3.5-5.1) mmol/L Chloride (98-107) mmol/L Carbon Dioxide (21-32) mmol/L Anion Gap (3-11) BUN (6-23) mg/dl Creatinine (0.6-1.4) mg/dl Est Cr Clr Drug Dosing ml/min Est GFR ( Amer) ml/min Est GFR (Non-Af Amer) ml/min BUN/Creatinine Ratio (10-20) Glucose (70-99(Fasting)) mg/dl Calcium (8.6-10.3) mg/dl Magnesium (1.7-2.4) mg/dl Total Bilirubin (0.2-1.0) mg/dl AST (13-39) U/L ALT (7-52) U/L Alkaline Phosphatase (34-104) U/L Troponin I High Sens (0-20) pg/ml Total Protein (6.0-8.3) gm/dl Albumin (3.4-5.0) gm/dl Globulin (2.5-4.0) gm/dl Albumin/Globulin Ratio (0.9-2) Lipase (11-82) U/L SARS-CoV-2, RNA, NAAT (NEGATIVE) Diagnostic Findings CT SCAN OF THE ABDOMEN AND PELVIS WITHOUT IV CONTRAST CLINICAL HISTORY: Periumbilical abdominal pain. COMPARISON STUDY: Abdominal CT dated 02/28/2007. TECHNIQUE: CT scan of the abdomen and pelvis is performed from the lung bases to the proximal femora. Images are reviewed in the axial, sagittal, and coronal planes. IV contrast was not administered for this examination. Note that the examination was performed in suboptimal fashion without IV contrast. Oral contrast was utilized. A dose lowering technique was utilized adhering to the principles of ALARA. CT DOSE: 1535.53 mGy.cm FINDINGS: Lung bases: The patient is status post midline sternotomy. The heart is enlarged and without pericardial effusion. The coronary arteries are densely calcified. The lung bases are clear noting bibasilar scarring/atelectasis. A small hiatal hernia is noted. Liver: The unenhanced liver is normal in size, contour, and attenuation. There i s no intrahepatic biliary ductal dilatation. Gallbladder: There are calcified gallstones. The gallbladder is distended, and the wall is thickened with surrounding inflammation. The appearance is cons istent with acute cholecystitis. Spleen: Normal in size and attenuation. Pancreas: Unremarkable. Adrenal glands: Unremarkable. Kidneys: The unenhanced kidneys are normal in size and without hydronephrosis. There are no renal calculi identified. Subcentimeter cortical hypodensities likely represent cysts but are too small for definitive characterization. Abdominal vasculature: The abdominal aorta is normal in course and caliber noting moderate to advanced atherosclerotic calcification. Bowel: There is moderate sigmoid diverticulosis without CT evidence of acute diverticulitis. No bowel obstruction is seen. Enteric contrast reaches the colon. There is moderate colonic fecal retention. The appendix is well- visualized and normal. Peritoneum: There is no intraperitoneal free air or abdominal ascites. Lymphadenopathy: None. Pelvic viscera: The prostate gland is diminutive and heterogeneous. The bladder wall appears mildly thickened/trabeculated indicating chronic outlet obstruction . There are small bilateral fat-containing Inguinal hernias. Skeletal structures: The skeletal structures are osteopenic. There is mild to moderate lumbosacral spondylosis. Sclerotic change is noted in the pubic symphysis. No lytic or blastic lesions are seen. IMPRESSION: 1. Cholelithiasis with acute cholecystitis. Surgical evaluation is advised. 2. Cardiomegaly. 3. Sigmoid diverticulosis without CT evidence of acute diverticulitis. 4. Additional findings as above.
[2022-12-26] MEDS ORDERED: METOPROLOL SUCC 50MG EXT REL TAB PO STA (15:45)
--- NOTE | 2022-12-26 16:57 | XRay Report ---
ORBIT RADIOGRAPHS 3 VIEWS HISTORY: pre-MRI screening. COMPARISON: Orbit radiograph 11/14/2018. FINDINGS: There are no radiopaque foreign bodies identified within the orbits. IMPRESSION: No radiopaque foreign bodies identified within the orbits. ACT 112: Negative or not required by law. Electronically signed by: Farhan Coelho M.D. 12/26/2022 4:55 PM
--- NOTE | 2022-12-26 18:35 | Magnetic Resonance Report ---
MR MRCP HISTORY: Abnormal CT scan. Right upper quadrant pain. abn LFT's, cholecystitis TECHNIQUE: MRCP of the abdomen was performed without contrast according to standard department protoc ol. COMPARISON STUDY: Abdomen and pelvis CT 12/26/2022. FINDINGS: Suboptimal evaluation of the abdomen due to the motion artifact. There are poststernotomy c hanges noted. The liver, spleen, adrenal glands, and pancreas are unremarkable. No hydronephrosis. Th ere are 2 T2 hyperintense lesions within the lower pole of the right kidney with the largest measurin g 11 mm. These favor cysts. Normal left kidney. No retroperitoneal lymphadenopathy. Normal caliber ab dominal aorta. The main portal vein appears patent. There are a few small gallstones. There is mild g allbladder wall thickening with trace pericholecystic fluid. Therefore, these findings are highly kieran picious for acute cholecystitis. The common bile duct is normal in caliber measuring up to 4 mm. No d efinite filling defects within the common bile duct to suggest choledocholithiasis. The main pancreat ic duct is also normal in caliber. No intrahepatic bile duct dilatation. IMPRESSION: 1. Cholelithiasis with mild gallbladder wall thickening and trace pericholecystic fluid. This is high ly suspicious for acute cholecystitis. Surgical consultation recommended. 2. Normal caliber common bile duct. No evidence for choledocholithiasis. 3. Normal caliber main pancreatic duct. ACT 112: Negative or not required by law. Electronically signed by: Farhan Coelho M.D. 12/26/2022 6:33 PM
[2022-12-26] MEDS ORDERED: ACETAMINOPHEN 1,000 MG/100 ML VIAL IV PRN (19:47)
[2022-12-26] MEDS ORDERED: ONDANSETRON INJ 2 MG/ML 2 ML VIAL IV PRN (19:48)
[2022-12-26] MEDS ORDERED: HYDROmorphone INJ 0.5 MG/0.5 ML SYR IV PRN ×2 (19:48)
[2022-12-26] MEDS: LACTATED RINGER'S 1,000 ML IV SCH (20:05)
[2022-12-27] MEDS: metroNIDAZOLE 500 MG/100 ML BAG IV SCH ×3 (00:15→16:02)
[2022-12-27] MEDS: LACTATED RINGER'S 1,000 ML IV SCH ×3 (03:55→19:52)
[2022-12-27] MEDS: LEVOTHYROXINE SODIUM 137 MCG TABLET PO SCH (05:50)
[2022-12-27 06:55] LABS: Basophils # (auto) 0.03 K/uL (0-0.2); Basophils % (auto) 0.4 %; Eosinophils # (auto) 0.16 K/uL (0-0.50); Hematocrit (blood only) 43.7 % (42.0-52.0); Hemoglobin 14.4 g/dl (14.0-18.0); Immature Granulocytes # (auto) 0.03 K/uL (0.01-0.20); Immature Granulocytes % (auto) 0.4 %; Lymphocytes # (auto) 1.17 K/uL (1.2-3.4); Lymphocytes % (auto) 14.8 %; Mean Corpuscular Hemoglobin 29.4 pg (25.0-34.0); Mean Corpuscular Volume 89.2 fL (80.0-100.0); Mean Platelet Volume 10.2 fL (9.4-12.4); Monocytes # (auto) 0.79 K/uL (0.11-0.59); Neutrophils # (auto) 5.72 K/uL (1.40-6.50); Neutrophils % (auto) 72.4 %; Platelet Count 193 K/uL (130-400); RDW Coefficient of Variation 12.9 % (11.5-14.5); RDW Standard Deviation 42.3 fL (36.4-46.3)
[2022-12-27 07:15] LABS: Albumin Globulin Ratio 1.2 (0.9-2); Albumin Level 3.7 gm/dl (3.4-5.0); BUN Creatinine Ratio 13.6 (10-20); Bilirubin,Total 2.6 mg/dl (0.2-1.0); Creatinine Clr Calc Pharmacy 172.8 ml/min; Est GFR (African American) 127.5 ml/min; Globulin 3.1 gm/dl (2.5-4.0); Potassium 3.9 mmol/L (3.5-5.1); Total Protein 6.8 gm/dl (6.0-8.3)
--- NOTE | 2022-12-27 08:37 | Gastrointestinal Consultation ---
Date of Consultation December 27, 2022 Assessment & Plan (1) Abdominal pain: 62 year old male with history of dyslipidemia, TIAGO, GERD, spinal stenosis, hypothyroidism, CAD, mitral regurgitation s/p CABG x 1 admitted with elevated LFTs gallstones and acute cholecystitis, concern for CBD stone NPO EUS/ERCP today Management of CCY per general surgery IV fluid maintenance We appreciate assistance in the management of any serological abnormality and corrections to include: hemoglobin >7, INR <2, platelets >50,000, potassium levels >3.5 but <5.3, and sodium levels within 5 points of the reference range prior to endoscopic evaluation. Thank you for allowing us to participate in the care of this patient. Please call with any acute changes, questions or concerns. Please see addendum below with additional recommendation from my supervising physician. Supervising Physician Co-Signing Physician Notes Saw and evaluated the patient. We were consulted for evaluation of abdominal discomfort associated with elevated liver enzymes and suspected choledocholithiasis. The patient did have an MRCP which was negative however his bilirubin was over 4 on admission which is a high pretest probability. Given his persistent pain and persistent elevated liver enzymes we will proceed with upper endoscopy endoscopic ultrasound and possible ERCP today Physical examination mild right upper quadrant tenderness mild scleral icterus Impression: High suspicion for choledocholithiasis given the significant elevation of his bilirubin at admission. We will proceed with upper endoscopy and endoscopic ultrasound today with possible ERCP. I discussed the risks of the procedures to include biliary cannulation, and the need for follow-up studies. History of Present Illness Reason for Consultation: ERCP request Requesting Physician: Rehana Attending Physician: Bhavya Kimball MD History of Present Illness 62 year old male with history of dyslipidemia, TIAGO, GERD, spinal stenosis, hypothyroidism, CAD, mitral regurgitation s/p CABG x 1 admitted through the ED with 10 days of upper abd pain and nausea - imaging concerning for acute cholecystitis. GI asked to evaluate given elevated LFTs. Notes he has had upper abd pain for at least 10 days. This is midline and RUQ. Sharp, severe. Has had some nausea. No vomiting. Is on ASA TB 4.7 --> 2.6 AST 247 --> 221 ALT 347 --> 322 ALKP 283 --> 261 MRCP: Cholelithiasis with mild gallbladder wall thickening and trace pericholecystic fluid. This is highly suspicious for acute cholecystitis. Surgical consultation recommended. 2. Normal caliber common bile duct. No evidence for choledocholithiasis. 3. Normal caliber main pancreatic duct. CTAP: Cholelithiasis with acute cholecystitis. Surgical evaluation is advised. Cardiomegaly. Sigmoid diverticulosis without CT evidence of acute diverticulitis. Additional findings as above. Allergies Allergy/AdvReac Type Severity Reaction Status Date / Time No Known Allergies Allergy Verified 12/26/22 08:30 Home Medications Medication Instructions Recorded Confirmed Type glucosamine-chondroitin 500 mg-400 2 tab PO QAM 06/14/20 12/26/22 History mg tablet multivitamin 1 tab PO QAM 06/14/20 12/26/22 History aspirin 81 mg tablet,delayed 81 mg PO QAM #90 tabs 06/15/20 12/26/22 Rx release fexofenadine 180 mg tablet 180 mg PO QAM 07/03/21 12/26/22 History amoxicillin 500 mg capsule 2,000 mg PO ONCE PRN Dental 08/22/21 12/26/22 Rx procedure 1 day #4 caps omeprazole 20 mg capsule,delayed 20 mg PO QAM #90 caps 02/12/22 12/26/22 Rx release atorvastatin 80 mg tablet 80 mg PO QAM #90 tabs 03/26/22 12/26/22 Rx metoprolol succinate 50 mg 50 mg PO QAM #90 tabs 09/26/22 12/26/22 Rx tablet,extended release 24 hr levothyroxine 137 mcg tablet 137 mcg PO QAM 12/26/22 12/26/22 History Patient History Medical History Aortic stenosis Aortic stenosis HX Clarke's esophagus last EGD 2018 - due again in 2021 CAD (coronary artery disease) Cancer SQUAMOUS CELL Carpal tunnel syndrome, bilateral Cervical radiculopathy Cervical spondylosis Coronary artery disease s/p CABG x 1 VANN to LAD 05/2020-F/U DR SHELTON HAMLIN Degenerative cervical disc GERD (gastroesophageal reflux disease) History of colon polyps History of Hodgkin's lymphoma Hodgkin disease (1987) chemo/radiation > finished chemo 32 yrs ago Hypothyroidism Impaired fasting glucose Mitral regurgitation Mitral regurgitation Pulmonary hypertension Sleep apnea doesn't use as prescribed Spinal stenosis Surgical History History of arthroscopy of left knee meniscus repair History of cardiac cath May 2020 > no stents History of colonoscopy History of esophagogastroduodenoscopy (EGD) History of thyroidectomy, total History of tooth extraction S/P aortic valve replacement (05/2020) bioprosthetic valve 05/2020 S/P CABG x 1 (05/2020) May 2020 > [facility] S/P foot surgery, right Status post biopsy of thyroid gland benign Family History Uncle Myocardial infarction Mother Breast cancer Other No family history of adverse response to anesthesia Denies family history of Ovarian cancer Prostate cancer Lung cancer Colonic polyp Social History Smoking Status: Never smoker Second Hand Exposure: No; Do You Dip or Chew Tobacco: No; Tobacco Cessation Education Requested by Patient: No Hx Alcohol Use: Yes Alcohol type: beer Hx Substance Use: No Preferred Language: Austrian Communication Ability: Effective Communication Ability Comment: pt will need to be present for discharge, does not do well remembering Hog Room Supervisor Required: No Beliefs That Will Affect Care: None marital status: Current Living Situation: Spouse current occupational status: retired current occupation: Other Information That Helps Us Care for You: No Feels Safe at Home: Yes Safety Concerns: Feels Safe At This Time Physical Activity Frequency: 1-2 Times per Week Seatbelt Use: always Sunscreen Use: No Assistive Devices: Glasses Review of Systems Review of Systems: All systems reviewed & are unremarkable except as noted in HPI & below Physical Exam Constitutional: WD/WN, vitals as above Respiratory: normal respiratory effort, lungs clear to auscultation Cardiovascular: RRR, no murmur, no edema Gastrointestinal (Abdomen): Inspection/Auscultation: abdomen normal to inspection and normal bowel sounds Percussion/Palpation: + abdomen tender and abdomen soft; no guarding and abdomen not rigid Skin: no rashes, warm and dry Results & Data Vital Signs (Past 12 Hours) Vital Signs Temp Pulse Resp BP Pulse Ox O2 Del Method 12/27/22 07:57 36.6 C 89 16 165/77 H 95 Room Air Laboratory Results 12/27/22 12/27/22 12/26/22 Range/Units 06:14 06:14 13:00 WBC 7.90 (4.8-10.8) K/ul RBC 4.90 (4.70-6.10) M/uL Hgb 14.4 (14.0-18.0) g/dl Hct 43.7 (42.0-52.0) % MCV 89.2 (80.0-100.0) fL MCH 29.4 (25.0-34.0) pg MCHC 33.0 (32.0-36.0) g/dL RDW Std Deviation 42.3 (36.4-46.3) fL RDW Coeff of Ashlyn 12.9 (11.5-14.5) % Plt Count 193 (130-400) K/uL MPV 10.2 (9.4-12.4) fL Immature Gran % (Auto) 0.4 % Neut % (Auto) 72.4 % Lymph % (Auto) 14.8 % [place] % (Auto) 10.0 % Eos % (Auto) 2.0 % Baso % (Auto) 0.4 % Neut # (Auto) 5.72 (1.40-6.50) K/uL Lymph # (Auto) 1.17 L (1.2-3.4) K/uL [place] # (Auto) 0.79 H (0.11-0.59) K/uL Eos # (Auto) 0.16 (0-0.50) K/uL Baso # (Auto) 0.03 (0-0.2) K/uL Immature Gran # (Auto) 0.03 (0.01-0.20) K/uL PT (9.0-12.0) Seconds INR (0.9-1.1) Sodium 140 (136-145) mmol/L Potassium 3.9 (3.5-5.1) mmol/L Chloride 105 (98-107) mmol/L Carbon Dioxide 25 (21-32) mmol/L Anion Gap 10 (3-11) BUN 8 (6-23) mg/dl Creatinine 0.59 L (0.6-1.4) mg/dl Est Cr Clr Drug Dosing 172.8 ml/min Est GFR ( Amer) 127.5 ml/min Est GFR (Non-Af Amer) 110.0 ml/min BUN/Creatinine Ratio 13.6 (10-20) Glucose 73 (70-99(Fasting)) mg/dl Calcium 9.0 (8.6-10.3) mg/dl Magnesium (1.7-2.4) mg/dl Total Bilirubin 2.6 H (0.2-1.0) mg/dl AST 221 H (13-39) U/L ALT 322 H (7-52) U/L Alkaline Phosphatase 261 H (34-104) U/L Troponin I High Sens (0-20) pg/ml Total Protein 6.8 (6.0-8.3) gm/dl Albumin 3.7 (3.4-5.0) gm/dl Globulin 3.1 (2.5-4.0) gm/dl Albumin/Globulin Ratio 1.2 (0.9-2) Lipase (11-82) U/L SARS-CoV-2, RNA, NAAT NEGATIVE (NEGATIVE) 12/26/22 12/26/22 12/26/22 Range/Units 12:39 12:39 12:39 WBC 8.45 (4.8-10.8) K/ul RBC 4.94 (4.70-6.10) M/uL Hgb 14.7 (14.0-18.0) g/dl Hct 43.4 (42.0-52.0) % MCV 87.9 (80.0-100.0) fL MCH 29.8 (25.0-34.0) pg MCHC 33.9 (32.0-36.0) g/dL RDW Std Deviation 42.5 (36.4-46.3) fL RDW Coeff of Ashlyn 13.2 (11.5-14.5) % Plt Count 227 (130-400) K/uL MPV 11.0 (9.4-12.4) fL Immature Gran % (Auto) 0.4 % Neut % (Auto) 68.9 % Lymph % (Auto) 17.6 % [place] % (Auto) 11.4 % Eos % (Auto) 1.3 % Baso % (Auto) 0.4 % Neut # (Auto) 5.83 (1.40-6.50) K/uL Lymph # (Auto) 1.49 (1.2-3.4) K/uL [place] # (Auto) 0.96 H (0.11-0.59) K/uL Eos # (Auto) 0.11 (0-0.50) K/uL Baso # (Auto) 0.03 (0-0.2) K/uL Immature Gran # (Auto) 0.03 (0.01-0.20) K/uL PT 11.2 (9.0-12.0) Seconds INR 1.0 (0.9-1.1) Sodium 138 (136-145) mmol/L Potassium 3.7 (3.5-5.1) mmol/L Chloride 104 (98-107) mmol/L Carbon Dioxide 26 (21-32) mmol/L Anion Gap 8 (3-11) BUN 9 (6-23) mg/dl Creatinine 0.76 (0.6-1.4) mg/dl Est Cr Clr Drug Dosing 134.2 ml/min Est GFR ( Amer) 114.9 ml/min Est GFR (Non-Af Amer) 99.2 ml/min BUN/Creatinine Ratio 11.8 (10-20) Glucose 105 H (70-99(Fasting)) mg/dl Calcium 9.4 (8.6-10.3) mg/dl Magnesium 1.9 (1.7-2.4) mg/dl Total Bilirubin 4.7 H (0.2-1.0) mg/dl AST 247 H (13-39) U/L ALT 347 H (7-52) U/L Alkaline Phosphatase 283 H (34-104) U/L Troponin I High Sens 15.2 (0-20) pg/ml Total Protein 7.3 (6.0-8.3) gm/dl Albumin 4.1 (3.4-5.0) gm/dl Globulin 3.2 (2.5-4.0) gm/dl Albumin/Globulin Ratio 1.3 (0.9-2) Lipase 28 (11-82) U/L SARS-CoV-2, RNA, NAAT (NEGATIVE)
[2022-12-27] MEDS: METOPROLOL SUCC 50MG EXT REL TAB PO SCH (08:44)
[2022-12-27] MEDS: ATORVASTATIN 40 MG TAB PO SCH (08:44)
[2022-12-27] MEDS: FEXOFENADINE HCL 180 MG TAB PO SCH (08:44)
--- NOTE | 2022-12-27 08:54 | Hospitalist Progress Note ---
Date of Service December 27, 2022 Assessment & Plan (1) Acute cholecystitis: Plan: CTAP on admission showing acute cholecystitis TB 4.7, ALP elevation, lipase wnl MRCP ordered -- Cholelithiasis with mild gallbladder wall thickening and trace pericholecystic fluid. This is highly suspicious for acute cholecystitis. Surgical consultation recommended. Normal caliber common bile duct. No evidence for choledocholithiasis. GI consulted s/p ERCP/EGD 12/[address] Maldonado * EGD w/ evidence for barretts, biopsied (hx such, seen dr dee in past, on omeprazole once daily) * ERCP with evidence for choledocholithiasis. Complete removal w/ biliary sphincterotomy and balloon extraction. Biliary stent placed in CBD. * AVOID ASA/NSAIDs x 5 days, broad spectrum abx x 10 days. Will need stent removal 4-6 weeks Remains on Ceftriaxone/Flagyl Clear liquid diet for today IVF LFTs improving Discussed w/ general surgery and will make NPO at midnight for surgery tomorrow Pain control/antiemetics prn SCDs added for DVT prophylaxis, holding chemo as planning for surgery tomorrow Monitor labs on repeat (2) GERD (gastroesophageal reflux disease): Plan: Switch omeprazole for pantoprazole 40mg PO -- increased to BID given barretts ( reports she had been giving him twice daily past couple of days as well) EGD w/ barretts, biopsied. Will need f/u Dr Dee outpatient (3) Hypothyroidism: Plan: TSH with AM labs Continue levothyroxine (4) S/P aortic valve replacement: Plan: Bioprosthetic valve (5) Coronary artery disease: Plan: ASA on hold for operation Continue metoprolol, atorvastatin No CP at present (6) Sleep apnea: Plan: Noted in chart but patient denies any history of this Recommend following up outpatient Plan clear liquid diet for today, NPO at midnight for OR in AM for cholecystectomy Admission and Anticipated Discharge Date Admission Date: December 26, 2022 Supervising Physician Co-Signing Physician Notes PA Supervision Note: I did not personally see or examine the patient today, but I verified all donald points of GUNJAN Oseguera's assessment and plan with the following exceptions/additions: None Subjective eval this morning, doing well just got back from ERCP/EGD which showed choledocholithiasis and barretts, previously seen by Dr Dee. On omeprazole once daily but admits she had been giving him extra dosing over the past week. MM dry and RN bringing sprite and jello at present. He rates pain about 3/10, epigastric/umbilical in nature, abdomen soft. No chest pain/shortness of breath. Discussed I spoke w/ general surgery and will plan clears and make NPO at midnight for surgery. If tolerating PO intake will pause IVF and resume at midnight. Physical Exam Physical Exam: General : WD male sitting up in bed, at bedside, thirsty HEENT; head normocephalic, atraumatic, mm slightly dry, trachea midline Resp: CTA, slightly diminished in the bases, no w/c, on room air CV: RRR, +click, no significant edema, calves nontender, pulses palpable GI: +BS, mild tenderness to palpation around umbilicus, soft, no guarding/rigidity : no valentine MSK/Neuro: no focal deficit, no slurred speech, answering questions appropriately Psych: AOx3, cooperative with exam Results & Data Results & Data Vital Signs (Past 12 Hours) Vital Signs Temp Pulse Resp BP Pulse Ox O2 Del Method 12/27/22 07:57 36.6 C 89 16 165/77 H 95 Room Air Laboratory Results 12/27/22 12/27/22 12/26/22 Range/Units 06:14 06:14 13:00 WBC 7.90 (4.8-10.8) K/ul RBC 4.90 (4.70-6.10) M/uL Hgb 14.4 (14.0-18.0) g/dl Hct 43.7 (42.0-52.0) % MCV 89.2 (80.0-100.0) fL MCH 29.4 (25.0-34.0) pg MCHC 33.0 (32.0-36.0) g/dL RDW Std Deviation 42.3 (36.4-46.3) fL RDW Coeff of Ashlyn 12.9 (11.5-14.5) % Plt Count 193 (130-400) K/uL MPV 10.2 (9.4-12.4) fL Immature Gran % (Auto) 0.4 % Neut % (Auto) 72.4 % Lymph % (Auto) 14.8 % [place] % (Auto) 10.0 % Eos % (Auto) 2.0 % Baso % (Auto) 0.4 % Neut # (Auto) 5.72 (1.40-6.50) K/uL Lymph # (Auto) 1.17 L (1.2-3.4) K/uL [place] # (Auto) 0.79 H (0.11-0.59) K/uL Eos # (Auto) 0.16 (0-0.50) K/uL Baso # (Auto) 0.03 (0-0.2) K/uL Immature Gran # (Auto) 0.03 (0.01-0.20) K/uL PT (9.0-12.0) Seconds INR (0.9-1.1) Sodium 140 (136-145) mmol/L Potassium 3.9 (3.5-5.1) mmol/L Chloride 105 (98-107) mmol/L Carbon Dioxide 25 (21-32) mmol/L Anion Gap 10 (3-11) BUN 8 (6-23) mg/dl Creatinine 0.59 L (0.6-1.4) mg/dl Est Cr Clr Drug Dosing 172.8 ml/min Est GFR ( Amer) 127.5 ml/min Est GFR (Non-Af Amer) 110.0 ml/min BUN/Creatinine Ratio 13.6 (10-20) Glucose 73 (70-99(Fasting)) mg/dl Calcium 9.0 (8.6-10.3) mg/dl Magnesium (1.7-2.4) mg/dl Total Bilirubin 2.6 H (0.2-1.0) mg/dl AST 221 H (13-39) U/L ALT 322 H (7-52) U/L Alkaline Phosphatase 261 H (34-104) U/L Troponin I High Sens (0-20) pg/ml Total Protein 6.8 (6.0-8.3) gm/dl Albumin 3.7 (3.4-5.0) gm/dl Globulin 3.1 (2.5-4.0) gm/dl Albumin/Globulin Ratio 1.2 (0.9-2) Lipase (11-82) U/L SARS-CoV-2, RNA, NAAT NEGATIVE (NEGATIVE) 05/12/26/22 12/26/22 Range/Units 12:39 12:39 12:39 WBC 8.45 (4.8-10.8) K/ul RBC 4.94 (4.70-6.10) M/uL Hgb 14.7 (14.0-18.0) g/dl Hct 43.4 (42.0-52.0) % MCV 87.9 (80.0-100.0) fL MCH 29.8 (25.0-34.0) pg MCHC 33.9 (32.0-36.0) g/dL RDW Std Deviation 42.5 (36.4-46.3) fL RDW Coeff of Ashlyn 13.2 (11.5-14.5) % Plt Count 227 (130-400) K/uL MPV 11.0 (9.4-12.4) fL Immature Gran % (Auto) 0.4 % Neut % (Auto) 68.9 % Lymph % (Auto) 17.6 % [place] % (Auto) 11.4 % Eos % (Auto) 1.3 % Baso % (Auto) 0.4 % Neut # (Auto) 5.83 (1.40-6.50) K/uL Lymph # (Auto) 1.49 (1.2-3.4) K/uL [place] # (Auto) 0.96 H (0.11-0.59) K/uL Eos # (Auto) 0.11 (0-0.50) K/uL Baso # (Auto) 0.03 (0-0.2) K/uL Immature Gran # (Auto) 0.03 (0.01-0.20) K/uL PT 11.2 (9.0-12.0) Seconds INR 1.0 (0.9-1.1) Sodium 138 (136-145) mmol/L Potassium 3.7 (3.5-5.1) mmol/L Chloride 104 (98-107) mmol/L Carbon Dioxide 26 (21-32) mmol/L Anion Gap 8 (3-11) BUN 9 (6-23) mg/dl Creatinine 0.76 (0.6-1.4) mg/dl Est Cr Clr Drug Dosing 134.2 ml/min Est GFR ( Amer) 114.9 ml/min Est GFR (Non-Af Amer) 99.2 ml/min BUN/Creatinine Ratio 11.8 (10-20) Glucose 105 H (70-99(Fasting)) mg/dl Calcium 9.4 (8.6-10.3) mg/dl Magnesium 1.9 (1.7-2.4) mg/dl Total Bilirubin 4.7 H (0.2-1.0) mg/dl AST 247 H (13-39) U/L ALT 347 H (7-52) U/L Alkaline Phosphatase 283 H (34-104) U/L Troponin I High Sens 15.2 (0-20) pg/ml Total Protein 7.3 (6.0-8.3) gm/dl Albumin 4.1 (3.4-5.0) gm/dl Globulin 3.2 (2.5-4.0) gm/dl Albumin/Globulin Ratio 1.3 (0.9-2) Lipase 28 (11-82) U/L SARS-CoV-2, RNA, NAAT (NEGATIVE) Diagnostic Findings Cholangiopancreatography MRI 12/26/22 13:58 MR MRCP HISTORY: Abnormal CT scan. Right upper quadrant pain. abn LFT's, cholecystitis TECHNIQUE: MRCP of the abdomen was performed without contrast according to standard department protocol. COMPARISON STUDY: Abdomen and pelvis CT 12/26/2022. FINDINGS: Suboptimal evaluation of the abdomen due to the motion artifact. There are poststernotomy changes noted. The liver, spleen, adrenal glands, and pancreas are unremarkable. No hydronephrosis. There are 2 T2 hyperintense lesions within the lower pole of the right kidney with the largest measuring 11 mm. These favor cysts. Normal left kidney. No retroperitoneal lymphadenopathy. Normal caliber abdominal aorta. The main portal vein appears patent. There are a few small gallstones. There is mild gallbladder wall thickening with trace pericholecystic fluid. Therefore, these findings are highly suspicious for acute cholecystitis. The common bile duct is normal in caliber measuring up to 4 mm. No definite filling defects within the common bile duct to suggest choledocholithiasis. The main pancreatic duct is also normal in caliber. No intrahepatic bile duct dilatation. IMPRESSION: 1. Cholelithiasis with mild gallbladder wall thickening and trace pericholecystic fluid. This is highly suspicious for acute cholecystitis. Surgical consultation recommended. 2. Normal caliber common bile duct. No evidence for choledocholithiasis. 3. Normal caliber main pancreatic duct. ACT 112: Negative or not required by law. Electronically signed by: Farhan Coelho M.D. 12/26/2022 6:33 PM Chest X-Ray 12/26/22 14:02 XR chest 1V portable CLINICAL HISTORY: pre-op TECHNIQUE: Single frontal radiograph of the chest was obtained. Comparison: Comparison is made to chest radiograph 07/10/2021 FINDINGS: Median sternotomy wires are unchanged. The cardiomediastinal silhouette is normal. Calcified lymph nodes are seen. The lungs are clear. No evidence of pleural effusion or pneumothorax. IMPRESSION: No acute chest disease. ACT 112: Negative or not required by law. Electronically signed by: Ion Patel M.D. 12/26/2022 2:40 PM Orbit X-Ray 12/26/22 14:53 ORBIT RADIOGRAPHS 3 VIEWS HISTORY: pre-MRI screening. COMPARISON: Orbit radiograph 11/14/2018. FINDINGS: There are no radiopaque foreign bodies identified within the orbits. IMPRESSION: No radiopaque foreign bodies identified within the orbits. ACT 112: Negative or not required by law. Electronically signed by: Farhan Coelho M.D. 12/26/2022 4:55 PM PG Care Time/CCT Total # of Minutes Spent Total Time Spent with Patient: Total time spent is greater than 50% in coordination of care (as documented) at patient's floor/unit and/or counseling patient: Coding Level of Care Code 12636 SUB INP/OBS CARE 3/50MIN Diagnoses Acute cholecystitis K81.0 GERD (gastroesophageal reflux disease) K21.9 Esophagitis presence: esophagitis presence not specified Hypothyroidism E03.9 Hypothyroidism type: unspecified S/P aortic valve replacement Z95.2 Coronary artery disease I25.10 Sleep apnea G47.30 (2) GERD (gastroesophageal reflux disease) Esophagitis presence: esophagitis presence not specified Qualified Code(s): K21.9 - Gastro-esophageal reflux disease without esophagitis (3) Hypothyroidism Hypothyroidism type: unspecified Qualified Code(s): E03.9 - Hypothyroidism, unspecified
[2022-12-27] MEDS ORDERED: PANTOprazole 40 MG TAB PO SCH (09:00)
--- NOTE | 2022-12-27 09:06 | Anesthesiology Consultation ---
Date of Service December 27, 2022 Assessment & Plan Chart Review Chart Review: entry operator initiated History Surgery Operation Date: 12/27/22 10:00 Proposed Procedures p Endoscopic Retrograde Cholangiopancreato - Minda Maldonado DO Height/Weight Height: 6 ft Weight: 113 kg Allergies Allergy/AdvReac Type Severity Reaction Status Date / Time No Known Allergies Allergy Verified 12/26/22 08:30 Medications Home Medications Medication Instructions Recorded Confirmed Last Taken glucosamine-chondroitin 500 mg-400 2 tab PO QAM 06/14/20 12/26/22 12/25/22 mg tablet multivitamin 1 tab PO QAM 06/14/20 12/26/22 12/25/22 aspirin 81 mg tablet,delayed 81 mg PO QAM #90 tabs 06/15/20 12/26/22 12/25/22 release fexofenadine 180 mg tablet 180 mg PO QAM 07/03/21 12/26/22 12/25/22 amoxicillin 500 mg capsule 2,000 mg PO ONCE PRN Dental 08/22/21 12/26/22 Unknown procedure 1 day #4 caps omeprazole 20 mg capsule,delayed 20 mg PO QAM #90 caps 02/12/22 12/26/22 12/25/22 release atorvastatin 80 mg tablet 80 mg PO QAM #90 tabs 03/26/22 12/26/22 12/25/22 metoprolol succinate 50 mg 50 mg PO QAM #90 tabs 09/26/22 12/26/22 12/26/22 tablet,extended release 24 hr levothyroxine 137 mcg tablet 137 mcg PO QAM 12/26/22 12/26/22 12/25/22 Active Medications Generic Name Dose Route Start Last Admin Trade Name Freq PRN Reason Stop Dose Admin Atorvastatin Calcium 80 mg 12/27/22 09:00 12/27/22 08:44 Atorvastatin 40 Mg Tab PO 01/26/23 08:59 80 mg QAM KEVIN Administration Fexofenadine HCl 180 mg 12/27/22 09:00 12/27/22 08:44 Fexofenadine Hcl 180 Mg Tab PO 01/26/23 08:59 180 mg QAM KEVIN Administration Lactated Ringer's 1,000 mls @ 125 mls/hr 12/26/22 19:45 12/27/22 03:55 Lr IV 01/25/23 19:44 125 mls/hr .Q8H KEVIN Administration Metronidazole 500 mg in 100 mls @ 100 mls/hr 12/27/22 00:00 12/27/22 08:43 Flagyl IV 01/06/23 00:00 100 mls/hr Q8H KEVIN Administration Protocol Levothyroxine Sodium 137 mcg 12/27/22 06:30 12/27/22 05:50 Levothyroxine Sodium 137 Mcg Tablet PO 01/26/23 06:29 137 mcg DAILYBB KEVIN Administration Metoprolol Succinate 50 mg 12/27/22 09:00 12/27/22 08:44 Metoprolol Succ 50mg Ext Rel Tab PO 01/26/23 08:59 50 mg QAM KEVIN Administration Ondansetron HCl 4 mg 12/26/22 19:48 12/27/22 08:45 Ondansetron Inj 2 Mg/Ml 2 Ml Vial IV 01/25/23 19:47 4 mg Q4H PRN Administration Nausea Pantoprazole Sodium 40 mg 12/27/22 09:00 12/27/22 08:44 Pantoprazole 40 Mg Tab PO 01/26/23 08:59 40 mg QAM KEVIN Administration Protocol NPO Date Last Intake of Fluids: 12/26/22 Time Last Intake of Fluids: 23:59 Date Last Intake of Solids: 12/26/22 Time Last Intake of Solids: 23:59 Past Medical History Medical History Aortic stenosis Aortic stenosis HX Clarke's esophagus last EGD 2018 - due again in 2021 CAD (coronary artery disease) Cancer SQUAMOUS CELL Carpal tunnel syndrome, bilateral Cervical radiculopathy Cervical spondylosis Coronary artery disease s/p CABG x 1 VANN to LAD 05/2020-F/U DR SHELTON HAMLIN Degenerative cervical disc GERD (gastroesophageal reflux disease) History of colon polyps History of Hodgkin's lymphoma Hodgkin disease (1987) chemo/radiation > finished chemo 32 yrs ago Hypothyroidism Impaired fasting glucose Mitral regurgitation Mitral regurgitation Pulmonary hypertension Sleep apnea doesn't use as prescribed Spinal stenosis Past Family History Family History Uncle Myocardial infarction Mother Breast cancer Other No family history of adverse response to anesthesia Denies family history of Ovarian cancer Prostate cancer Lung cancer Colonic polyp Past Surgical History Surgical History History of arthroscopy of left knee meniscus repair History of cardiac cath May 2020 > no stents History of colonoscopy History of esophagogastroduodenoscopy (EGD) History of thyroidectomy, total History of tooth extraction S/P aortic valve replacement (05/2020) bioprosthetic valve 05/2020 S/P CABG x 1 (05/2020) May 2020 > [place] S/P foot surgery, right Status post biopsy of thyroid gland benign Social History Smoking Status: Never smoker Do You Dip or Chew Tobacco: No Hx Alcohol Use: Yes Alcohol type: beer alcohol intake frequency: a few times a month Hx Substance Use: No substance use type: does not use Physical Exam Vital Signs Last Vital Signs Temp 97.9 F 12/27/22 07:57 Pulse 89 12/27/22 07:57 Resp 16 12/27/22 07:57 BP 165/77 H 12/27/22 07:57 Pulse Ox 95 12/27/22 07:57 O2 Del Method Room Air 12/27/22 07:57 Testing Laboratory Results 12/27/22 06:14 12/27/22 06:14 PT 11.2 Seconds (9.0-12.0) 12/26/22 12:39 INR 1.0 (0.9-1.1) 12/26/22 12:39 Electrocardiogram Date: 12/26/22 Normal sinus rhythm Left ventricular hypertrophy with repolarization abnormality Old Inferior infarct Abnormal ECG When compared with ECG of 14-JUN-2020 19:33, Fusion complexes are no longer Present Borderline criteria for Inferior infarct are now Present Confirmed by Too Chan ([id number]) on 12/26/2022 2:19:51 PM Chest X-Ray Date: 12/26/22 Findings: + NAD Echocardiogram Date: 08/03/20 Normal LV size and systolic function. EF 60-65%. No regional wall motion abnormalities. Mod concentric LVH. Bioprosthetic aortic valve with appropriate gradient/velocity Moderate mitral annular calcification with mild MR Normal RVSP Compared to prior study on 09/08/2018, bioprosethetic AV has replaced aortic stenosis
[2022-12-27] MEDS ORDERED: PROPOFOL IV EMULSION 10 MG/ML 20 ML VIAL IV ONE (09:57)
[2022-12-27] MEDS ORDERED: ROCURONIUM BROMIDE 10 MG/ML 5 ML VIAL IV ONE (09:57)
[2022-12-27] MEDS ORDERED: DEXAMETHASONE SOD INJ 4 MG/ML VIAL ONE (09:57)
[2022-12-27] MEDS ORDERED: ONDANSETRON INJ 2 MG/ML 2 ML VIAL ONE (09:57)
[2022-12-27] MEDS ORDERED: LIDOCAINE 2% 2 ML VIAL/AMP(20MG/ML) INFIL ONE (09:57)
[2022-12-27] MEDS ORDERED: MIDAZOLAM HCL 1 MG/ML 2ML VIAL ONE (09:58)
[2022-12-27] MEDS ORDERED: fentaNYL citrate PF 100 MCG/2 ML VIAL ONE (09:58)
[2022-12-27] MEDS ORDERED: ePHEDrine sulfate 50 MG/ML AMP IV PRN (11:03)
[2022-12-27] MEDS ORDERED: ONDANSETRON INJ 2 MG/ML 2 ML VIAL IV PRN (11:03)
[2022-12-27] MEDS ORDERED: ATROPINE SULFATE 0.1 MG/ML 10ML SYR IV PRN (11:03)
[2022-12-27] MEDS ORDERED: fentaNYL citrate PF 100 MCG/2 ML VIAL IV PRN (11:03)
--- NOTE | 2022-12-27 12:18 | Surgery Progress Note ---
Date of Service December 27, 2022 Assessment & Plan (1) Abdominal pain: (2) Acute cholecystitis: Plan 62 year-old male with 1.5 week history of mid periumbilical abdominal pain with associated nausea, belching, and bloating postprandial presented to ED from home after evaluation from PCP office today and outpatient CT scan showing acute cholecystitis. Labs show no leukocytosis however t. bili elevated at 4.7 as well as LFTs and alk phos are elevated. Lipase wnl. Abdomen is soft with tenderness in RUQ and epigastrium however negative Zhu's. 12/27/2022 avss, no leukocytosis MRCP negative for choledocholithiasis t. bili 4.7 --> 2.6 LFTS still elevated, mildly improved GI planning EUS/ERCP today Plan: Await findings of EUS/ERCP today will determine timing for cholecystectomy Continue IV antibiotics Continue antiemetics and pain management as needed follow labs continue medical management Discussed with Dr. Andrews who agrees with above Admission and Anticipated Discharge Date Admission Date: December 26, 2022 Subjective feeling nauseous today, dallinfran helping minimal abdominal pain or discomfort urinating without difficulty at bedside felt his eyes looked slightly yellow last evening going for ERCP today around noon Physical Exam Constitutional: WD/WN, vitals as above cooperative and comfortable; no acute distress and not ill appearing Respiratory: normal respiratory effort; no respiratory distress Gastrointestinal (Abdomen): Inspection/Auscultation: abdomen normal to inspection; abdomen not distended and + abnormal bowel sounds Percussion /Palpation: + abdomen tender (RUQ and epigastrium on deep palpation); no guarding, abdomen not rigid and + abdomen not soft Skin: no rashes, warm and dry + jaundice (mild scleral icterus) Psychiatric: A+Ox3, euthymic affect Results & Data Vital Signs (Past 12 Hours) Vital Signs Temp Pulse Resp BP Pulse Ox O2 Del Method 12/27/22 10:38 36.8 C 92 H 18 154/99 H 96 Room Air 12/27/22 07:57 36.6 C 89 16 165/77 H 95 Room Air Laboratory Results 12/27/22 12/27/22 12/27/22 Range/Units 08:39 06:14 06:14 WBC 7.90 (4.8-10.8) K/ul RBC 4.90 (4.70-6.10) M/uL Hgb 14.4 (14.0-18.0) g/dl Hct 43.7 (42.0-52.0) % MCV 89.2 (80.0-100.0) fL MCH 29.4 (25.0-34.0) pg MCHC 33.0 (32.0-36.0) g/dL RDW Std Deviation 42.3 (36.4-46.3) fL RDW Coeff of Ashlyn 12.9 (11.5-14.5) % Plt Count 193 (130-400) K/uL MPV 10.2 (9.4-12.4) fL Immature Gran % (Auto) 0.4 % Neut % (Auto) 72.4 % Lymph % (Auto) 14.8 % Mccone % (Auto) 10.0 % Eos % (Auto) 2.0 % Baso % (Auto) 0.4 % Neut # (Auto) 5.72 (1.40-6.50) K/uL Lymph # (Auto) 1.17 L (1.2-3.4) K/uL Mccone # (Auto) 0.79 H (0.11-0.59) K/uL Eos # (Auto) 0.16 (0-0.50) K/uL Baso # (Auto) 0.03 (0-0.2) K/uL Immature Gran # (Auto) 0.03 (0.01-0.20) K/uL PT (9.0-12.0) Seconds INR (0.9-1.1) Sodium 140 (136-145) mmol/L Potassium 3.9 (3.5-5.1) mmol/L Chloride 105 (98-107) mmol/L Carbon Dioxide 25 (21-32) mmol/L Anion Gap 10 (3-11) BUN 8 (6-23) mg/dl Creatinine 0.59 L (0.6-1.4) mg/dl Est Cr Clr Drug Dosing 172.8 ml/min Est GFR ( Amer) 127.5 ml/min Est GFR (Non-Af Amer) 110.0 ml/min BUN/Creatinine Ratio 13.6 (10-20) Glucose 73 (70-99(Fasting)) mg/dl Calcium 9.0 (8.6-10.3) mg/dl Magnesium (1.7-2.4) mg/dl Total Bilirubin 2.6 H (0.2-1.0) mg/dl AST 221 H (13-39) U/L ALT 322 H (7-52) U/L Alkaline Phosphatase 261 H (34-104) U/L Troponin I High Sens (0-20) pg/ml Total Protein 6.8 (6.0-8.3) gm/dl Albumin 3.7 (3.4-5.0) gm/dl Globulin 3.1 (2.5-4.0) gm/dl Albumin/Globulin Ratio 1.2 (0.9-2) Lipase (11-82) U/L TSH 0.770 (0.300-4.500) uIu/ml SARS-CoV-2, RNA, NAAT (NEGATIVE) 12/26/22 12/26/22 12/26/22 Range/Units 13:00 12:39 12:39 WBC (4.8-10.8) K/ul RBC (4.70-6.10) M/uL Hgb (14.0-18.0) g/dl Hct (42.0-52.0) % MCV (80.0-100.0) fL MCH (25.0-34.0) pg MCHC (32.0-36.0) g/dL RDW Std Deviation (36.4-46.3) fL RDW Coeff of Ashlyn (11.5-14.5) % Plt Count (130-400) K/uL MPV (9.4-12.4) fL Immature Gran % (Auto) % Neut % (Auto) % Lymph % (Auto) % Mccone % (Auto) % Eos % (Auto) % Baso % (Auto) % Neut # (Auto) (1.40-6.50) K/uL Lymph # (Auto) (1.2-3.4) K/uL Mccone # (Auto) (0.11-0.59) K/uL Eos # (Auto) (0-0.50) K/uL Baso # (Auto) (0-0.2) K/uL Immature Gran # (Auto) (0.01-0.20) K/uL PT 11.2 (9.0-12.0) Seconds INR 1.0 (0.9-1.1) Sodium 138 (136-145) mmol/L Potassium 3.7 (3.5-5.1) mmol/L Chloride 104 (98-107) mmol/L Carbon Dioxide 26 (21-32) mmol/L Anion Gap 8 (3-11) BUN 9 (6-23) mg/dl Creatinine 0.76 (0.6-1.4) mg/dl Est Cr Clr Drug Dosing 134.2 ml/min Est GFR ( Amer) 114.9 ml/min Est GFR (Non-Af Amer) 99.2 ml/min BUN/Creatinine Ratio 11.8 (10-20) Glucose 105 H (70-99(Fasting)) mg/dl Calcium 9.4 (8.6-10.3) mg/dl Magnesium 1.9 (1.7-2.4) mg/dl Total Bilirubin 4.7 H (0.2-1.0) mg/dl AST 247 H (13-39) U/L ALT 347 H (7-52) U/L Alkaline Phosphatase 283 H (34-104) U/L Troponin I High Sens 15.2 (0-20) pg/ml Total Protein 7.3 (6.0-8.3) gm/dl Albumin 4.1 (3.4-5.0) gm/dl Globulin 3.2 (2.5-4.0) gm/dl Albumin/Globulin Ratio 1.3 (0.9-2) Lipase 28 (11-82) U/L TSH (0.300-4.500) uIu/ml SARS-CoV-2, RNA, NAAT NEGATIVE (NEGATIVE) 12/26/22 Range/Units 12:39 WBC 8.45 (4.8-10.8) K/ul RBC 4.94 (4.70-6.10) M/uL Hgb 14.7 (14.0-18.0) g/dl Hct 43.4 (42.0-52.0) % MCV 87.9 (80.0-100.0) fL MCH 29.8 (25.0-34.0) pg MCHC 33.9 (32.0-36.0) g/dL RDW Std Deviation 42.5 (36.4-46.3) fL RDW Coeff of Ashlyn 13.2 (11.5-14.5) % Plt Count 227 (130-400) K/uL MPV 11.0 (9.4-12.4) fL Immature Gran % (Auto) 0.4 % Neut % (Auto) 68.9 % Lymph % (Auto) 17.6 % Mccone % (Auto) 11.4 % Eos % (Auto) 1.3 % Baso % (Auto) 0.4 % Neut # (Auto) 5.83 (1.40-6.50) K/uL Lymph # (Auto) 1.49 (1.2-3.4) K/uL Mccone # (Auto) 0.96 H (0.11-0.59) K/uL Eos # (Auto) 0.11 (0-0.50) K/uL Baso # (Auto) 0.03 (0-0.2) K/uL Immature Gran # (Auto) 0.03 (0.01-0.20) K/uL PT (9.0-12.0) Seconds INR (0.9-1.1) Sodium (136-145) mmol/L Potassium (3.5-5.1) mmol/L Chloride (98-107) mmol/L Carbon Dioxide (21-32) mmol/L Anion Gap (3-11) BUN (6-23) mg/dl Creatinine (0.6-1.4) mg/dl Est Cr Clr Drug Dosing ml/min Est GFR ( Amer) ml/min Est GFR (Non-Af Amer) ml/min BUN/Creatinine Ratio (10-20) Glucose (70-99(Fasting)) mg/dl Calcium (8.6-10.3) mg/dl Magnesium (1.7-2.4) mg/dl Total Bilirubin (0.2-1.0) mg/dl AST (13-39) U/L ALT (7-52) U/L Alkaline Phosphatase (34-104) U/L Troponin I High Sens (0-20) pg/ml Total Protein (6.0-8.3) gm/dl Albumin (3.4-5.0) gm/dl Globulin (2.5-4.0) gm/dl Albumin/Globulin Ratio (0.9-2) Lipase (11-82) U/L TSH (0.300-4.500) uIu/ml SARS-CoV-2, RNA, NAAT (NEGATIVE) Diagnostic Findings MR MRCP HISTORY: Abnormal CT scan. Right upper quadrant pain. abn LFT's, cholecystitis TECHNIQUE: MRCP of the abdomen was performed without contrast according to standard department protocol. COMPARISON STUDY: Abdomen and pelvis CT 12/26/2022. FINDINGS: Suboptimal evaluation of the abdomen due to the motion artifact. There are poststernotomy changes noted. The liver, spleen, adrenal glands, and pancreas are unremarkable. No hydronephrosis. There are 2 T2 hyperintense lesions within the lower pole of the right kidney with the largest measuring 11 mm. These favor cysts. Normal left kidney. No retroperitoneal lymphadenopathy. Normal caliber abdominal aorta. The main portal vein appears patent. There are a few small gallstones. There is mild gallbladder wall thickening with trace pericholecystic fluid. Therefore, these findings are highly suspicious for acute cholecystitis. The common bile duct is normal in caliber measuring up to 4 mm. No definite filling defects within the common bile duct to suggest choledocholithiasis. The main pancreatic duct is also normal in caliber. No intrahepatic bile duct dilatation. IMPRESSION: 1. Cholelithiasis with mild gallbladder wall thickening and trace pericholecystic fluid. This is highly suspicious for acute cholecystitis. Surgical consultation recommended. 2. Normal caliber common bile duct. No evidence for choledocholithiasis. 3. Normal caliber main pancreatic duct.
--- NOTE | 2022-12-27 12:20 | GI REPORT ---
Patient Name: Juan Carlos Aggarwal Procedure Date: 12/27/2022 12:13 PM Date of : 1960 Admit Type: Inpatient Age: 62 Gender: Male Attending MD: Minda Maldonado DO, Procedure: Upper GI endoscopy Providers: Minda Maldonado DO Referring MD: Bhavya Kimball Md, Kyle Glover Case, DO Indications: Epigastric abdominal pain, Abdominal pain in the right upper quadrant, Follow-up of Clarke's esophagus Medicines: General Anesthesia Complications: No immediate complications. Estimated blood loss: Minimal. Estimated Blood Loss: Estimated blood loss was minimal. Procedure: Pre-Anesthesia Assessment: - Prior to the procedure, a History and Physical was performed, and patient medications, allergies and sensitivities were reviewed. The patient's tolerance of previous anesthesia was reviewed. - The risks and benefits of the procedure and the sedation options and risks were discussed with the patient. All questions were answered and informed consent was obtained. - Patient identification and proposed procedure were verified prior to the procedure by the physician, the nurse and the bracelet form coverer. The procedure was verified in the procedure room. - Pre-procedure physical examination revealed no contraindications to sedation. - ASA Grade Assessment: III - A patient with severe systemic disease. - After reviewing the risks and benefits, the patient was deemed in satisfactory condition to undergo the procedure. - The anesthesia plan was to use general anesthesia. - Immediately prior to administration of medications, the patient was re-assessed for adequacy to receive sedatives. - The heart rate, respiratory rate, oxygen saturations, blood pressure, adequacy of pulmonary ventilation, and response to care were monitored throughout the procedure. - The physical status of the patient was re-assessed after the procedure. After obtaining informed consent, the endoscope was passed under direct vision. Throughout the procedure, the patient's blood pressure, pulse, and oxygen saturations were monitored continuously. The Endoscope was introduced through the mouth, and advanced to the second part of duodenum. The upper GI endoscopy was accomplished without difficulty. The patient tolerated the procedure well. Findings: The upper third of the esophagus and middle third of the esophagus were normal. The Z-line was irregular and was found 38 cm from the incisors. Biopsies were taken with a cold forceps for histology. The pathology specimen was placed into Bottle A. Estimated blood loss was minimal. The entire examined stomach was normal. The examined duodenum was normal. Impression: - Normal upper third of esophagus and middle third of esophagus. - Z-line irregular, 38 cm from the incisors. Biopsied. - Normal stomach. - Normal examined duodenum. Recommendation: - Perform an upper endoscopic ultrasound (UEUS) today. - Await pathology results. Minda Maldonado D.O. Minda Maldonado, 12/27/2022 12:20:07 PM This report has been signed electronically. Note Initiated On: 12/27/2022 12:13 PM Number of Addenda: 0 I attest to the content of the Intraoperative Record and orders documented therein, exceptions below {[id number]}
[2022-12-27] MEDS ORDERED: GLYCOPYRROLATE 0.2 MG/ML VIAL ONE (12:33)
[2022-12-27] MEDS ORDERED: PHENYLEPHRINE HCL 10 MG/ML VIAL ONE (12:33)
[2022-12-27] MEDS ORDERED: NEOSTIGMINE METHYLSULFATE 1 MG/ML 10ML VIAL ONE (12:33)
--- NOTE | 2022-12-27 13:04 | Post Operative Brief Note ---
Immediate Post Op Note v1 Date of Surgery December 27, 2022 Pre & Post Diagnosis Operation Date: 12/27/22 EGD EUS ERCP I identified the patient and participated in the time-out.: Yes Procedure EGD EUS ERCP Surgeon Minda Maldonado, Job Setter Honing none Estimated Blood Loss 0 Findings See Below (Choledocholithiasis, Barretts Esophaugs)
--- NOTE | 2022-12-27 13:05 | Communication Note ---
Date of Service: December 27, 2022 The patient underwent upper endoscopy, endoscopic ultrasound and ultimately ERCP today. The patient was found to have evidence of short segment Clarke's e sophagus which was again biopsied. The patient also was found to have choledocholithiasis, ERCP removed a gallstone and we placed a biliary stent. Recommendations May have clear liquids from a GI perspective Antibiotic coverage for total of 10 days Avoid anticoagulation for 5 days please Repeat ERCP for stent removal in 8 to 12 weeks Cholecystectomy per general surgery Patient should follow-up with his regular GI provider with regard to Clarke's esophagus
--- NOTE | 2022-12-27 13:13 | GI REPORT ---
Patient Name: Juan Carlos Aggarwal Procedure Date: 12/27/2022 12:20 PM Date of : 1960 Admit Type: Inpatient Age: 62 Gender: Male Attending MD: Minda Maldonado DO, Procedure: Upper EUS Providers: Minda Maldonado DO Referring MD: Kyle Sinclair DO, Bhavya Kimball Md Indications: Elevated liver enzymes, Suspected choledocholithiasis Medicines: General Anesthesia Complications: No immediate complications. Estimated blood loss: Minimal. Estimated Blood Loss: Estimated blood loss was minimal. Procedure: Pre-Anesthesia Assessment: - Prior to the procedure, a History and Physical was performed, and patient medications, allergies and sensitivities were reviewed. The patient's tolerance of previous anesthesia was reviewed. - The risks and benefits of the procedure and the sedation options and risks were discussed with the patient. All questions were answered and informed consent was obtained. - Patient identification and proposed procedure were verified prior to the procedure by the physician, the nurse and the scooter mechanic. The procedure was verified in the procedure room. - Pre-procedure physical examination revealed no contraindications to sedation. - ASA Grade Assessment: III - A patient with severe systemic disease. - After reviewing the risks and benefits, the patient was deemed in satisfactory condition to undergo the procedure. - The anesthesia plan was to use general anesthesia. - Immediately prior to administration of medications, the patient was re-assessed for adequacy to receive sedatives. - The heart rate, respiratory rate, oxygen saturations, blood pressure, adequacy of pulmonary ventilation, and response to care were monitored throughout the procedure. - The physical status of the patient was re-assessed after the procedure. After obtaining informed consent, the endoscope was passed under direct vision. Throughout the procedure, the patient's blood pressure, pulse, and oxygen saturations were monitored continuously. The Scope was introduced through the mouth, and advanced to the second part of duodenum. The upper EUS was accomplished without difficulty. The patient tolerated the procedure well. Findings: ENDOSONOGRAPHIC FINDING: : There was no sign of significant endosonographic abnormality in the ampulla. No pathologic lymphadenopathy and no masses were identified. Two stones were visualized endosonographically in the common bile duct. The stones measured up to 4 mm in greatest dimension. They were hyperechoic and characterized by shadowing. The common bile duct was 6 mm in diameter. Multiple stones were visualized endosonographically in the gallbladder. The stones were round. They were hyperechoic and characterized by shadowing. There was no sign of significant endosonographic abnormality in the visualized portion of the liver. Homogeneous parenchyma and no focal pathology were identified. There was no sign of significant endosonographic abnormality in the entire pancreas. The pancreas was well visualized. There was no sign of significant endosonographic abnormality in the left adrenal gland. No adrenal gland enlargement was identified. Impression: - There was no sign of significant pathology in the ampulla. - Two stones were visualized endosonographically in the common bile duct. - Multiple stones were visualized endosonographically in the gallbladder. - There was no evidence of significant pathology in the visualized portion of the liver. - There was no sign of significant pathology in the entire pancreas. - Endosonographic images of the left adrenal gland were unremarkable. - No specimens collected. Recommendation: - Perform an ERCP today. Minda Maldonado D.O. Minda Maldonado, 12/27/2022 1:12:56 PM This report has been signed electronically. Note Initiated On: 12/27/2022 12:20 PM Number of Addenda: 0 I attest to the content of the Intraoperative Record and orders documented therein, exceptions below {[id number]}
--- NOTE | 2022-12-27 13:17 | GI REPORT ---
Patient Name: Juan Carlos Aggarwal Procedure Date: 12/27/2022 12:27 PM Date of : 1960 Admit Type: Inpatient Age: 62 Gender: Male Attending MD: Minda Maldonado DO, Procedure: ERCP Providers: Minda Maldonado DO Referring MD: Kyle Sinclair DO, Bhavya Kimball Md Indications: Abdominal pain of suspected biliary origin, Abnormal endoscopic ultrasound of the biliary system, For therapy of bile duct stone(s) Medicines: General Anesthesia Complications: No immediate complications. Estimated blood loss: Minimal. Estimated Blood Loss: Estimated blood loss was minimal. Procedure: Pre-Anesthesia Assessment: - Prior to the procedure, a History and Physical was performed, and patient medications, allergies and sensitivities were reviewed. The patient's tolerance of previous anesthesia was reviewed. - The risks and benefits of the procedure and the sedation options and risks were discussed with the patient. All questions were answered and informed consent was obtained. - Patient identification and proposed procedure were verified prior to the procedure by the physician, the nurse and the collections representative. The procedure was verified in the procedure room. - Pre-procedure physical examination revealed no contraindications to sedation. - ASA Grade Assessment: III - A patient with severe systemic disease. - After reviewing the risks and benefits, the patient was deemed in satisfactory condition to undergo the procedure. - The anesthesia plan was to use general anesthesia. - Immediately prior to administration of medications, the patient was re-assessed for adequacy to receive sedatives. - The heart rate, respiratory rate, oxygen saturations, blood pressure, adequacy of pulmonary ventilation, and response to care were monitored throughout the procedure. - The physical status of the patient was re-assessed after the procedure. After obtaining informed consent, the scope was passed under direct vision. Throughout the procedure, the patient's blood pressure, pulse, and oxygen saturations were monitored continuously. The Duodenoscope was introduced through the mouth, and advanced to the duodenum and used to inject contrast into the bile duct. The ERCP was accomplished without difficulty. The patient tolerated the procedure well. Findings: A apprentice pattern maker film of the abdomen was obtained. Multiple stones were seen in the Gallbladder. The esophagus was successfully intubated under direct vision without detailed examination of the pharynx, larynx, and associated structures, and upper GI tract. The upper GI tract was grossly normal. The major papilla was congested. The bile duct was deeply cannulated with the CleverCut distal wire sphincterotome. Contrast was injected. I personally interpreted the bile duct images. Contrast extended to the entire biliary tree. The lower third of the main bile duct contained filling defect(s) thought to be a stone. Biliary sphincterotomy was made with a monofilament CleverCut distal wire sphincterotome using ERBE electrocautery. There was no post-sphincterotomy bleeding. To discover objects, the biliary tree was swept with a 12 mm balloon starting at the bifurcation. Two stones were removed. No stones remained. One 10 Fr by 9 cm biliary stent with a single external flap and a single internal flap was placed 9 cm into the common bile duct. Bile flowed through the stent. The stent was in good position. The endoscope was withdrawn from the patient. The total fluoroscopy exposure time was 52 seconds. The endoscope was withdrawn from the patient. Impression: - The major papilla appeared congested. - Choledocholithiasis was found. Complete removal was accomplished by biliary sphincterotomy and balloon extraction. - One biliary stent was placed into the common bile duct. Recommendation: - Avoid aspirin and nonsteroidal anti-inflammatory medicines for 5 days. - Clear liquid diet today. - Use broad spectrum antibiotics for 10 days. - Repeat ERCP in 6 weeks to remove stent. - Cholecystectomy per general surgery. Minda Maldonado D.O. Minda Maldonado DO 12/27/2022 1:17:04 PM This report has been signed electronically. Note Initiated On: 12/27/2022 12:27 PM Number of Addenda: 0 I attest to the content of the Intraoperative Record and orders documented therein, exceptions below {[id number]}
--- NOTE | 2022-12-27 13:43 | Fluoroscopy Report ---
[place] ERCP biliary ductal CLINICAL HISTORY: ERCP IN OR TECHNIQUE: 6 views were obtained with the C-arm in the OR with the above procedure. Total fluoroscopy time was 52.2 seconds. Radiation dose was 20.1 mGy. Comparison: None available at the time of this dictation. FINDINGS/IMPRESSION: Intraoperative images were obtained of ERCP. In the final image, no filling defe cts are seen to suggest stones. Please correlate with intraoperative fluoroscopy and operative report. ACT 112: Negative or not required by law. Electronically signed by: Ion Patel M.D. 12/27/2022 1:42 PM
[2022-12-27] MEDS: cefTRIAXone SODIUM 2,000 MG in DEXTROSE 5% 50 ML IV SCH (14:26)
--- NOTE | 2022-12-27 14:37 | Anesthesiology Progress Note ---
Date of Service December 27, 2022 Anesthesia Post Procedure Vital Signs Vital Signs: Temp Pulse Pulse Resp BP Pulse Ox O2 Del Method 12/27/22 14:30 98.6 F 87 16 127/83 93 Room Air 12/27/22 14:03 99.0 F 84 16 142/85 H 95 Room Air 12/27/22 13:45 85 14 137/82 94 Room Air 12/27/22 13:35 84 19 141/88 H 95 Room Air 12/27/22 13:25 98.1 F 85 15 146/87 H 95 Room Air 12/27/22 13:15 84 18 146/90 H 98 Oxymask 12/27/22 13:05 84 17 147/90 H 100 Oxymask 12/27/22 12:58 96.8 F L 88 15 149/105 H 100 Oxymask 12/27/22 10:38 98.2 F 92 H 18 154/99 H 96 Room Air 12/27/22 07:57 97.9 F 89 16 165/77 H 95 Room Air 12/26/22 20:27 97.9 F 80 18 164/96 H 97 Room Air 12/26/22 18:13 98.2 F 74 18 166/109 H 97 Room Air 12/26/22 16:15 86 18 155/106 H 95 Room Air O2 Flow Rate 12/27/22 14:30 12/27/22 14:03 12/27/22 13:45 12/27/22 13:35 12/27/22 13:25 12/27/22 13:15 3 12/27/22 13:05 6 12/27/22 12:58 6 12/27/22 10:38 12/27/22 07:57 12/26/22 20:27 12/26/22 18:13 12/26/22 16:15 Pain Intensity Upper Abdomen: Pain Intensity: 5 Transfer of Care Handoff Completed per policy Notes Mental Status: alert / awake / arousable and participated in evaluation Patient Amnestic to Procedure: Yes Nausea / Vomiting: adequately controlled Pain: adequately controlled Airway Patency, RR, SpO2: stable & adequate BP & HR: stable & adequate Hydration State: stable & adequate Anesthetic Complications: no major complications apparent and Pt Satisfied with anesthetic care
[2022-12-27] MEDS ORDERED: GLUCAGON FOR INJ 1 MG VIAL ONE (14:45)
[2022-12-27] MEDS: PANTOprazole 40 MG TAB PO SCH (19:51)
[2022-12-28] MEDS: metroNIDAZOLE 500 MG/100 ML BAG IV SCH ×3 (00:31→21:30)
[2022-12-28] MEDS: LACTATED RINGER'S 1,000 ML IV SCH ×2 (02:14→12:05)
[2022-12-28] MEDS: LEVOTHYROXINE SODIUM 137 MCG TABLET PO SCH (05:39)
[2022-12-28] MEDS ORDERED: ONDANSETRON INJ 2 MG/ML 2 ML VIAL ONE (07:29)
[2022-12-28] MEDS ORDERED: MIDAZOLAM HCL 1 MG/ML 2ML VIAL ONE (07:29)
[2022-12-28] MEDS ORDERED: DEXAMETHASONE SOD INJ 4 MG/ML VIAL ONE (07:29)
[2022-12-28] MEDS ORDERED: fentaNYL citrate PF 100 MCG/2 ML VIAL ONE (07:29)
[2022-12-28] MEDS ORDERED: PROPOFOL IV EMULSION 10 MG/ML 20 ML VIAL IV ONE (07:29)
[2022-12-28] MEDS ORDERED: ROCURONIUM BROMIDE 10 MG/ML 5 ML VIAL IV ONE (07:29)
[2022-12-28] MEDS ORDERED: LIDOCAINE 2% 2 ML VIAL/AMP(20MG/ML) INFIL ONE (07:29)
--- NOTE | 2022-12-28 07:39 | Anesthesiology Consultation ---
Date of Service December 28, 2022 Assessment & Plan Chart Review Chart Review: Acceptable Risk for Surgery and Patient NOT seen in Pre Admission Testing Consults Requested none ASA ASA3 Proposed Anesthesia Anesthesia Type: General History Surgery Operation Date: 12/27/22 10:00 Proposed Procedures p Endoscopic Retrograde Cholangiopancreato - Minda Maldonado DO Operation Date: 12/28/22 09:05 Proposed Procedures p Laparoscopic Cholecystectomy - Scooter Andrews MD Height/Weight Height: 6 ft Weight: 113 kg Allergies Allergy/AdvReac Type Severity Reaction Status Date / Time No Known Allergies Allergy Verified 12/26/22 08:30 Medications Home Medications Medication Instructions Recorded Confirmed Last Taken glucosamine-chondroitin 500 mg-400 2 tab PO QAM 06/14/20 12/26/22 12/25/22 mg tablet multivitamin 1 tab PO QAM 06/14/20 12/26/22 12/25/22 aspirin 81 mg tablet,delayed 81 mg PO QAM #90 tabs 06/15/20 12/26/22 12/25/22 release fexofenadine 180 mg tablet 180 mg PO QAM 07/03/21 12/26/22 12/25/22 amoxicillin 500 mg capsule 2,000 mg PO ONCE PRN Dental 08/22/21 12/26/22 Unknown procedure 1 day #4 caps omeprazole 20 mg capsule,delayed 20 mg PO QAM #90 caps 02/12/22 12/26/22 12/25/22 release atorvastatin 80 mg tablet 80 mg PO QAM #90 tabs 03/26/22 12/26/22 12/25/22 metoprolol succinate 50 mg 50 mg PO QAM #90 tabs 09/26/22 12/26/22 12/26/22 tablet,extended release 24 hr levothyroxine 137 mcg tablet 137 mcg PO QAM 12/26/22 12/26/22 12/25/22 Active Medications Generic Name Dose Route Start Last Admin Trade Name Freq PRN Reason Stop Dose Admin Atorvastatin Calcium 80 mg 12/27/22 09:00 12/27/22 08:44 Atorvastatin 40 Mg Tab PO 01/26/23 08:59 80 mg QAM KEVIN Administration Fexofenadine HCl 180 mg 12/27/22 09:00 12/27/22 08:44 Fexofenadine Hcl 180 Mg Tab PO 01/26/23 08:59 180 mg QAM KEVIN Administration Lactated Ringer's 1,000 mls @ 125 mls/hr 12/26/22 19:45 12/28/22 02:14 Lr IV 01/25/23 19:44 125 mls/hr .Q8H KEVIN Administration Metronidazole 500 mg in 100 mls @ 100 mls/hr 12/27/22 00:00 12/28/22 01:30 Flagyl IV 01/06/23 00:00 0 mls/hr Q8H KEIVN Infusion Protocol Ceftriaxone Sodium 2,000 mg/ 70 mls @ 140 mls/hr 12/27/22 14:00 12/27/22 15:54 Dextrose IV 01/06/23 13:59 Infused Q24H KEVIN Infusion Protocol Levothyroxine Sodium 137 mcg 12/27/22 06:30 12/28/22 05:39 Levothyroxine Sodium 137 Mcg Tablet PO 01/26/23 06:29 137 mcg DAILYBB KEVIN Administration Metoprolol Succinate 50 mg 12/27/22 09:00 12/27/22 08:44 Metoprolol Succ 50mg Ext Rel Tab PO 01/26/23 08:59 50 mg QAM KEVIN Administration Ondansetron HCl 4 mg 12/26/22 19:48 12/27/22 08:45 Ondansetron Inj 2 Mg/Ml 2 Ml Vial IV 01/25/23 19:47 4 mg Q4H PRN Administration Nausea Pantoprazole Sodium 40 mg 12/27/22 21:00 12/27/22 19:51 Pantoprazole 40 Mg Tab PO 01/26/23 20:59 40 mg BID KEVIN Administration Protocol NPO Date Last Intake of Fluids: 12/25/22 Time Last Intake of Fluids: 18:00 Last Intake of Fluids Comment: sip of water with meds today Date Last Intake of Solids: 12/25/22 Time Last Intake of Solids: 18:00 Past Medical History Medical History Aortic stenosis Aortic stenosis HX Clarke's esophagus last EGD 2018 - due again in 2021 CAD (coronary artery disease) Cancer SQUAMOUS CELL Carpal tunnel syndrome, bilateral Cervical radiculopathy Cervical spondylosis Coronary artery disease s/p CABG x 1 VANN to LAD 05/2020-F/U DR SHELTON HAMLIN Degenerative cervical disc GERD (gastroesophageal reflux disease) History of colon polyps History of Hodgkin's lymphoma Hodgkin disease (1987) chemo/radiation > finished chemo 32 yrs ago Hypothyroidism Impaired fasting glucose Mitral regurgitation Mitral regurgitation Pulmonary hypertension Sleep apnea doesn't use as prescribed Spinal stenosis Exercise / Class Metabolic Activity III < 4 Walking/Shop/Light housework Past Family History Family History Uncle Myocardial infarction Mother Breast cancer Other No family history of adverse response to anesthesia Denies family history of Ovarian cancer Prostate cancer Lung cancer Colonic polyp Past Surgical History Surgical History History of arthroscopy of left knee meniscus repair History of cardiac cath May 2020 > no stents History of colonoscopy History of esophagogastroduodenoscopy (EGD) History of thyroidectomy, total History of tooth extraction S/P aortic valve replacement (05/2020) bioprosthetic valve 05/2020 S/P CABG x 1 (05/2020) May 2020 > [place] S/P foot surgery, right Status post biopsy of thyroid gland benign Past Anesthesia History No Hx of Anesthesia Complications and No Family Hx of Anesthesia Complications History of PONV No Hx of PONV and No Hx of Motion Sickness Social History Smoking Status: Never smoker Do You Dip or Chew Tobacco: No Hx Alcohol Use: Yes Alcohol type: beer alcohol intake frequency: a few times a month Hx Substance Use: No substance use type: does not use Physical Exam Vital Signs Last Vital Signs Temp 36.3 C L 12/28/22 03:30 Pulse 86 12/28/22 03:30 Resp 16 12/28/22 03:30 BP 166/98 H 12/28/22 03:30 Pulse Ox 96 12/28/22 03:30 O2 Del Method Room Air 12/28/22 03:30 O2 Flow Rate 3 12/27/22 13:15 Testing Laboratory Results 12/27/22 06:14 12/27/22 06:14 PT 11.2 Seconds (9.0-12.0) 12/26/22 12:39 INR 1.0 (0.9-1.1) 12/26/22 12:39
--- NOTE | 2022-12-28 07:55 | Hospitalist Progress Note ---
Date of Service December 28, 2022 Assessment & Plan (1) Acute cholecystitis: Plan: CTAP on admission showing acute cholecystitis TB 4.7, ALP elevation, lipase wnl MRCP ordered -- Cholelithiasis with mild gallbladder wall thickening and trace pericholecystic fluid. This is highly suspicious for acute cholecystitis. Surgical consultation recommended. Normal caliber common bile duct. No evidence for choledocholithiasis. GI consulted s/p ERCP/EGD 12/[address] Maldonado -EGD w/ evidence for barretts, biopsied (hx such, seen dr dee in past, on omeprazole once daily) -ERCP with evidence for choledocholithiasis. Complete removal w/ biliary sphincterotomy and balloon extraction. Biliary stent placed in CBD. -AVOID NSAIDs x 5 days, broad spectrum abx x 10 days. Will need stent removal 8- 12 weeks Remains on Ceftriaxone/Flagyl NPO this morning s/p Laparoscopic Cholecystectomy(Not Applicable) - Scooter Andrews MD. EBL 0cc. Per OP report, severe acute cholecytitis Pain control/antiemetics *BP elevated, likely aspect of pain -- given metoprolol prior to surgery, labetalol during. Hydralazine available prn WBC elevated, but afebrile. Drawn right after surgery, suspect reactive LFTs improving on repeat -- continue to monitor SCDs for DVT proph. Messaged surgery about chemoproph (per GI, to avoid anticoagulation x 5 days) --> Dr Andrews would like proph lovenox to begin tomorrow. Will order. Ok w/ stopping toradol. Ok to resume ASA for AM Monitor labs on repeat (2) GERD (gastroesophageal reflux disease): Plan: Switch omeprazole for pantoprazole 40mg PO -- increased to BID given barretts ( reports she had been giving him twice daily past couple of days as well) EGD w/ barretts, biopsied-->will need f/u Dr Dee outpatient (3) Hypothyroidism: Plan: TSH wnl, remains on synthroid daily (4) S/P aortic valve replacement: Plan: Bioprosthetic valve (5) Coronary artery disease: Plan: ASA on hold for operation -- will touch base w/ surgery about timing to resume Continue metoprolol, atorvastatin No CP at present (6) Sleep apnea: Plan: Noted in chart but patient denies any history of this Recommend following up outpatient Plan continued inpatient stay following cholecystectomy Admission and Anticipated Discharge Date Admission Date: December 26, 2022 Supervising Physician Co-Signing Physician Notes GUNJAN Supervision Note: I did not personally see or examine the patient today, but I verified all donald points of GUNJAN Oseguera's assessment and plan with the following exceptions/additions: None Subjective eval this afternoon, just got back from OR doing well, pain to mid abdomen in site of incisions, +gas pain/belching. did not get his protonix prior to surgery but was given metoprolol. BP elevated -- no CP/headache/visual changes/focal deficits. Hydralazine available prn. Did get labetalol in PACU/OR per nursing report. Trial clear liquids presently, will monitor. Some nausea but no vomiting at present. Discussed keeping overnight/getting his bowels moving/pain control and if doing great tomorrow can consider dc w/ outpt follow up but will monitor his progress. at bedside. Questions/concerns addressed at this time. Physical Exam Physical Exam: General : WD male sitting up in bed, at bedside, just got back from surgery, NAD but pain about ~5/10 at present HEENT: head normocephalic, atraumatic, mm slightly dry, trachea midline Resp: CTA, slightly diminished in the bases, no w/c, on room air CV: RRR, +click, no significant edema/calves nontender GI: +BS, incision sites look good, tenderness appropriately around incisions, +tenderness to umbilical region,slightly distended, no guarding/rigidity : no valentine MSK/Neuro: no focal deficit, no slurred speech, answering questions appropriately Psych: AOx3, cooperative with exam Results & Data Results & Data Vital Signs (Past 12 Hours) Vital Signs Temp Pulse Resp BP Pulse Ox O2 Del Method 12/28/22 03:30 36.3 C L 86 16 166/98 H 96 Room Air 12/27/22 22:14 36.9 C 80 16 144/95 H 96 Room Air Laboratory Results 12/28/22 12/28/22 12/28/22 Range/Units 10:50 10:49 10:49 WBC 11.84 H (4.8-10.8) K/ul RBC 4.71 (4.70-6.10) M/uL Hgb 14.0 (14.0-18.0) g/dl Hct 41.3 L (42.0-52.0) % MCV 87.7 (80.0-100.0) fL MCH 29.7 (25.0-34.0) pg MCHC 33.9 (32.0-36.0) g/dL RDW Std Deviation 41.4 (36.4-46.3) fL RDW Coeff of Ashlyn 13.0 (11.5-14.5) % Plt Count 214 (130-400) K/uL MPV 10.0 (9.4-12.4) fL Immature Gran % (Auto) 0.8 % Neut % (Auto) 88.3 % Lymph % (Auto) 6.9 % [place] % (Auto) 3.4 % Eos % (Auto) 0.4 % Baso % (Auto) 0.2 % Neut # (Auto) 10.45 H (1.40-6.50) K/uL Lymph # (Auto) 0.82 L (1.2-3.4) K/uL [place] # (Auto) 0.40 (0.11-0.59) K/uL Eos # (Auto) 0.05 (0-0.50) K/uL Baso # (Auto) 0.02 (0-0.2) K/uL Immature Gran # (Auto) 0.10 (0.01-0.20) K/uL Sodium 140 (136-145) mmol/L Potassium 3.8 (3.5-5.1) mmol/L Chloride 104 (98-107) mmol/L Carbon Dioxide 28 (21-32) mmol/L Anion Gap 8 (3-11) BUN 9 (6-23) mg/dl Creatinine 0.81 (0.6-1.4) mg/dl Est Cr Clr Drug Dosing 125.9 ml/min Est GFR ( Amer) 112.0 ml/min Est GFR (Non-Af Amer) 96.6 ml/min BUN/Creatinine Ratio 11.1 (10-20) Glucose 160 H (70-99(Fasting)) mg/dl Calcium 9.1 (8.6-10.3) mg/dl Total Bilirubin 1.2 H D (0.2-1.0) mg/dl AST 235 H (13-39) U/L ALT 347 H (7-52) U/L Alkaline Phosphatase 231 H (34-104) U/L Total Protein 6.5 (6.0-8.3) gm/dl Albumin 3.5 (3.4-5.0) gm/dl Globulin 3.0 (2.5-4.0) gm/dl Albumin/Globulin Ratio 1.2 (0.9-2) TSH 0.893 (0.300-4.500) uIu/ml Diagnostic Findings Endo Retro Cholangiopancreatogram 12/27/22 11:15 [place] ERCP biliary ductal CLINICAL HISTORY: ERCP IN OR TECHNIQUE: 6 views were obtained with the C-arm in the OR with the above procedure. Total fluoroscopy time was 52.2 seconds. Radiation dose was 20.1 mGy. Comparison: None available at the time of this dictation. FINDINGS/IMPRESSION: Intraoperative images were obtained of ERCP. In the final image, no filling defects are seen to suggest stones. Please correlate with intraoperative fluoroscopy and operative report. ACT 112: Negative or not required by law. Electronically signed by: Ion Patel M.D. 12/27/2022 1:42 PM PG Care Time/CCT Total # of Minutes Spent Total Time Spent with Patient: Total time spent is greater than 50% in coordination of care (as documented) at patient's floor/unit and/or counseling patient: Coding Level of Care Code 51290 SUB INP/OBS CARE 3/50MIN Diagnoses Acute cholecystitis K81.0 GERD (gastroesophageal reflux disease) K21.9 Esophagitis presence: esophagitis presence not specified Hypothyroidism E03.9 Hypothyroidism type: unspecified S/P aortic valve replacement Z95.2 Coronary artery disease I25.10 Sleep apnea G47.30 (2) GERD (gastroesophageal reflux disease) Esophagitis presence: esophagitis presence not specified Qualified Code(s): K21.9 - Gastro-esophageal reflux disease without esophagitis (3) Hypothyroidism Hypothyroidism type: unspecified Qualified Code(s): E03.9 - Hypothyroidism, unspecified
[2022-12-28] MEDS: METOPROLOL SUCC 50MG EXT REL TAB PO SCH (07:56)
--- NOTE | 2022-12-28 08:20 | History & Physical Bridge Note ---
Date of Service December 28, 2022 History & Physical Bridge Note I have examined the patient, reviewed the History & Physical and in the interval since the performance of the History & Physical I have noted the following changes of clinical significance: no changes noted
--- NOTE | 2022-12-28 08:22 | Surgery Progress Note ---
Date of Service December 28, 2022 Assessment & Plan (1) Acute cholecystitis: (2) Abdominal pain: Plan 2 OR today for laparoscopic cholecystectomy, possible open. Discussed risks and benefits. Consent has been obtained. Admission and Anticipated Discharge Date Admission Date: December 26, 2022 Subjective Feeling well this morning. Mild right upper quadrant abdominal pain. No nausea or vomiting. No fevers Physical Exam Physical Exam: NAD, A&O x3 Abdomen: Soft, nontender Results & Data Vital Signs (Past 12 Hours) Vital Signs Temp Pulse Pulse Resp BP Pulse Ox O2 Del Method 12/28/22 08:09 36.8 C 85 20 196/133 H 96 Room Air 12/28/22 07:30 36.3 C L 84 16 160/100 H 94 Room Air 12/28/22 07:55 84 160/100 H 12/28/22 03:30 36.3 C L 86 16 166/98 H 96 Room Air 12/27/22 22:14 36.9 C 80 16 144/95 H 96 Room Air
[2022-12-28] MEDS ORDERED: HYDROmorphone INJ 1 MG/ML SYRINGE IV PRN (08:27)
[2022-12-28] MEDS ORDERED: FLUMAZENIL 0.1 MG/1 ML 10 ML VIAL IV PRN (08:27)
[2022-12-28] MEDS ORDERED: PROMETHAZINE HCL 12.5 MG in SODIUM CHLORIDE 0.9% 50 ML IV PRN (08:27)
[2022-12-28] MEDS ORDERED: NALOXONE HCL 0.4 MG/1 ML VIAL/CARP IV PRN (08:27)
[2022-12-28] MEDS ORDERED: ePHEDrine sulfate 50 MG/ML AMP IV PRN (08:27)
[2022-12-28] MEDS ORDERED: LABETALOL HCL IV 5 MG/ML 20ML IV PRN (08:27)
[2022-12-28] MEDS ORDERED: ATROPINE SULFATE 0.1 MG/ML 10ML SYR IV PRN (08:27)
[2022-12-28] MEDS ORDERED: ONDANSETRON INJ 2 MG/ML 2 ML VIAL IV PRN (08:27)
[2022-12-28] MEDS ORDERED: BUPIVACAINE/EPINEPHRINE 0.25% 1:200,000 30 ML VIAL ONE (08:40)
[2022-12-28] MEDS ORDERED: PHENYLEPHRINE 100MCG/ML 5ML SYR ONE (09:04)
[2022-12-28] MEDS ORDERED: LABETALOL HCL IV 5 MG/ML 20ML IV ONE ×2 (09:04→10:22)
[2022-12-28] MEDS ORDERED: SUGAMMADEX SODIUM 200 MG/2 ML VIAL IV ONE (10:17)
--- NOTE | 2022-12-28 10:25 | Post Operative Brief Note ---
Immediate Post Op Note v1 Date of Surgery December 28, 2022 Pre & Post Diagnosis Operation Date: 12/28/22 09:05 Pre-Op Diagnosis: (1) Acute cholecystitis Post-Op Diagnosis: (1) Acute cholecystitis I identified the patient and participated in the time-out.: Yes Procedure Operation Date: 12/28/22 09:05 Actual Procedures p Laparoscopic Cholecystectomy(Not Applicable) - Scooter Andrews MD Surgeon Scooter Andrews MD [employer] TAMMY Gutierrez assisted with tissue retraction, camera op, closure Estimated Blood Loss 0 Findings Consistent with Post-Op Diagnosis
--- NOTE | 2022-12-28 10:29 | Operative Report ---
Post Operative Report Pre & Post Diagnosis Operation Date: 12/28/22 09:05 Pre-Op Diagnosis: (1) Acute cholecystitis Post-Op Diagnosis: (1) Acute cholecystitis I identified the patient and participated in the time-out.: Yes Procedure Operation Date: 12/28/22 09:05 Actual Procedures p Laparoscopic Cholecystectomy(Not Applicable) - Scooter Andrews MD Surgeon Scooter Andrews MD [employer] TAMMY Gutierrez assisted with tissue retraction, camera op, closure Estimated Blood Loss 0 Findings Consistent with Post-Op Diagnosis Severe acute cholecystitis Specimens Gallbladder Drains None Anesthesia Type General Complications No immediate complications Description of Procedure The patient was taken to the operating room, and placed supine on the operating table. A timeout was performed, perioperative antibiotics were administered, SCD boots were placed. After adequate anesthesia and analgesia was obtained, the abdomen was prepped and draped in the normal sterile fashion. Local anesthetic was injected into and around the proposed incision sites. An incision was made with a 15 blade scalpel in the supraumbilical region and carried down to the level of the fascia. The fascia was grasped with a trach hook, and a varies needle was used to enter the abdominal cavity. The abdomen was insufflated to a pressure of 15 mmHg, and a 11 mm trocar was placed in this location. A 10 mm, 30 degree laparoscope was placed into the abdominal cavity, and the abdomen was surveyed. Two 5 mm trochars were placed along the right costal margin, and one 5 mm trocar was placed in the subxiphoid region under direct visualization. The gallbladder was noted to be severely thickened. There were significant amounts of omental dense adhesions to the gallbladder. The gallbladder was grasped and retracted cephalad and laterally, and the adhesions of the omentum were taken down with blunt dissection and the electrocautery hook. We were able to work her way down to the bottom of the gallbladder. Dissection began in the triangle with a combination of blunt dissection with the [place] dissector, and judicious use of the hook cautery. The cystic duct and cystic artery were dissected free circumferentially, and a critical view of safety was obtained. The cystic artery was clipped and transected, giving us a better view of the duct. The duct was quite short and fat, and could be seen coming off the common bile duct. Of note, there was a stent in the common bile duct placed during the prior ERCP yesterday. The cystic duct was clipped and transected after upsizing the subxiphoid port to a 11 mm trocar and using a 10 mm clip, and due to the thickness of the duct, an Endoloop was placed on the cystic duct for added closure. The gallbladder was removed from the gallbladder fossa with the hook cautery. The camera was switched to the subxiphoid port, the gallbladder was placed in an Endo Catch bag, and removed via the supraumbilical port site. The abdomen was surveyed again. Hemostasis was checked and attended, and was excellent. The abdomen was copiously irrigated and suctioned free. Again hemostasis was checked and was excellent. All trochars were removed under direct visualization. The abdomen was desufflated. The fascia in the 11 mm port site was closed with a 0 Vicryl suture. The skin was closed with a running 4-0 Monocryl subcuticular stitch. Dermabond was applied. The patient tolerated the procedure without complication, and was transferred in stable condition to the PACU. All instrument, needle, and sponge counts were correct at the end of the case. My assistant press operator offset was necessary throughout the procedure for tissue retraction, possible camera operation, and closure of the wounds. I understand that section 1842(b)(7)(D) of the Social Security act generally prohibits Medicare physician fee schedule payment for the services of assistants at surgery in teaching hospitals when qualified residents are available to furnish such services. I certify that the services for which payment is claimed were medically necessary and that no qualified resident was available to perform the services. I further understand that these services are subject to postpayment review by the Medicare carrier. I attest to the content of the Intraoperative Record and any orders documented therein. Any exceptions are noted below.
[2022-12-28 11:07] LABS: Basophils # (auto) 0.02 K/uL (0-0.2); Basophils % (auto) 0.2 %; Eosinophils # (auto) 0.05 K/uL (0-0.50); Eosinophils % (auto) 0.4 %; Hematocrit (blood only) 41.3 % (42.0-52.0); Immature Granulocytes % (auto) 0.8 %; Lymphocytes # (auto) 0.82 K/uL (1.2-3.4); Lymphocytes % (auto) 6.9 %; Mean Corpuscular Hemoglobin 29.7 pg (25.0-34.0); Mean Corpuscular Hgb Conc 33.9 g/dL (32.0-36.0); Mean Corpuscular Volume 87.7 fL (80.0-100.0); Monocytes % (auto) 3.4 %; Neutrophils # (auto) 10.45 K/uL (1.40-6.50); Neutrophils % (auto) 88.3 %; Platelet Count 214 K/uL (130-400); RDW Standard Deviation 41.4 fL (36.4-46.3); Red Blood Count 4.71 M/uL (4.70-6.10); White Blood Count 11.84 K/ul (4.8-10.8)
[2022-12-28] MEDS: fentaNYL citrate PF 100 MCG/2 ML VIAL IV PRN ×2 (11:12→11:17)
[2022-12-28 11:30] LABS: Albumin Globulin Ratio 1.2 (0.9-2); Albumin Level 3.5 gm/dl (3.4-5.0); BUN Creatinine Ratio 11.1 (10-20); Bilirubin,Total 1.2 mg/dl (0.2-1.0); Calcium 9.1 mg/dl (8.6-10.3); Creatinine Clr Calc Pharmacy 125.9 ml/min; Est GFR (Non-African American) 96.6 ml/min; Potassium 3.8 mmol/L (3.5-5.1); Total Protein 6.5 gm/dl (6.0-8.3)
--- NOTE | 2022-12-28 11:44 | Anesthesiology Progress Note ---
Date of Service December 28, 2022 Anesthesia Post Procedure Vital Signs Vital Signs: Temp Pulse Pulse Resp BP Pulse Ox O2 Del Method 12/28/22 11:35 86 16 155/91 H 94 Room Air 12/28/22 11:25 36.4 C L 85 12 157/97 H 94 Room Air 12/28/22 11:15 84 18 163/92 H 94 Room Air 12/28/22 11:05 83 15 159/97 H 98 Oxymask 12/28/22 10:50 79 16 166/99 H 98 Oxymask 12/28/22 10:40 36.2 C L 78 18 157/109 H 99 Oxymask 12/28/22 08:09 36.8 C 85 20 196/133 H 96 Room Air 12/28/22 07:30 36.3 C L 84 16 160/100 H 94 Room Air 12/28/22 07:55 84 160/100 H 12/28/22 03:30 36.3 C L 86 16 166/98 H 96 Room Air 12/27/22 22:14 36.9 C 80 16 144/95 H 96 Room Air 12/27/22 19:48 37.0 C 85 16 143/82 H 95 Room Air 12/27/22 17:00 36.6 C 85 16 118/80 92 Room Air 12/27/22 16:06 37 C 86 16 129/81 95 Room Air 12/27/22 15:04 37.0 C 85 16 145/88 H 95 Room Air 12/27/22 14:30 37.0 C 87 16 127/83 93 Room Air 12/27/22 14:03 37.2 C 84 16 142/85 H 95 Room Air 12/27/22 13:45 85 14 137/82 94 Room Air 12/27/22 13:35 84 19 141/88 H 95 Room Air 12/27/22 13:25 36.7 C 85 15 146/87 H 95 Room Air 12/27/22 13:15 84 18 146/90 H 98 Oxymask 12/27/22 13:05 84 17 147/90 H 100 Oxymask 12/27/22 12:58 36 C L 88 15 149/105 H 100 Oxymask O2 Flow Rate 12/28/22 11:35 12/28/22 11:25 12/28/22 11:15 12/28/22 11:05 2 06/02/23 10:50 4 12/28/22 10:40 6 12/28/22 08:09 12/28/22 07:30 12/28/22 07:55 12/28/22 03:30 12/27/22 22:14 12/27/22 19:48 12/27/22 17:00 12/27/22 16:06 12/27/22 15:04 12/27/22 14:30 12/27/22 14:03 12/27/22 13:45 12/27/22 13:35 12/27/22 13:25 12/27/22 13:15 3 12/27/22 13:05 6 12/27/22 12:58 6 Pain Intensity Upper Abdomen: Pain Intensity: 4 Transfer of Care Handoff Completed per policy Notes Mental Status: alert / awake / arousable Patient Amnestic to Procedure: Yes Nausea / Vomiting: adequately controlled Pain: adequately controlled Airway Patency, RR, SpO2: stable & adequate BP & HR: stable & adequate Hydration State: stable & adequate Anesthetic Complications: no major complications apparent
[2022-12-28] MEDS ORDERED: KETOROLAC 30 MG/ML VIAL IV PRN (11:51)
[2022-12-28] MEDS ORDERED: diphenhydrAMINE Capsule 25 MG CAP PO PRN (11:51)
[2022-12-28] MEDS ORDERED: oxyCODONE/ACETAMINOPHEN 5mg/325mg TAB PO PRN ×2 (11:51)
[2022-12-28] MEDS: FEXOFENADINE HCL 180 MG TAB PO SCH (12:25)
[2022-12-28] MEDS: ATORVASTATIN 40 MG TAB PO SCH (12:26)
[2022-12-28] MEDS ORDERED: Nursing to Pharmacy Communication SCH (12:45)
[2022-12-28] MEDS: PANTOprazole 40 MG TAB PO SCH ×2 (12:46→21:29)
--- NOTE | 2022-12-28 13:19 | Communication Note ---
Date of Service: December 28, 2022 Pt off the floor for cholecystectomy; not examined by me Chart reviewed - Underwent EUS/ERCP yesterday - had BE bx'd, and had choledocholithiasis on ERCP, gallstone removed and biliary stent placed. Today getting CCY Labs reviewed and are stable - LFTs slowly trending down. 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
[2022-12-28] MEDS: hydrALAZINE HCL 20 MG/ML VIAL IV PRN ×2 (13:23→22:56)
[2022-12-28] MEDS: cefTRIAXone SODIUM 2,000 MG in DEXTROSE 5% 50 ML IV SCH (13:56)
[2022-12-29] MEDS: metroNIDAZOLE 500 MG/100 ML BAG IV SCH ×2 (05:27→11:50)
[2022-12-29] MEDS: LEVOTHYROXINE SODIUM 137 MCG TABLET PO SCH (05:30)
--- NOTE | 2022-12-29 06:23 | Surgery Progress Note ---
Date of Service December 29, 2022 Assessment & Plan (1) Acute cholecystitis: Plan: Patient is status post laparoscopic cholecystectomy on 12/28/22 (postop day #1); status post ERCP on 12/27/2022 (postoperative day #2) Continue current diet with consideration to advance later today Continue analgesics Continue antiemetics As directed by gastroenterology continue antibiotics for total of 10 days (he is current receiving Rocephin and Flagyl); no anticoagulation for 5 days; repeat ERCP in 8 to 12 weeks for stent removal Continue to follow serial labs Mobilize as able He is feeling great. Much better than yesterday. We will advance his diet. Okay from surgical standpoint for discharge when okay with primary service. Discussed discharge instructions. Admission and Anticipated Discharge Date Admission Date: December 26, 2022 Subjective Patient is resting comfortably in bed. He denies any nausea or vomiting. He is passing flatus but is not had a bowel movement since surgery. He is tolerating clear liquids. He denies any shortness of breath. Physical Exam Gastrointestinal (Abdomen): Surgical incisions are all clean, dry, and intact without signs of infection. Abdomen is soft and nonrigid with present bowel sounds. Patient had appropriate tenderness near surgical incisions. Results & Data Vital Signs (Past 12 Hours) Vital Signs Temp Pulse Resp BP Pulse Ox O2 Del Method 12/29/22 04:34 36.4 C L 93 H 16 161/95 H 95 Room Air 12/28/22 23:44 141/89 H 12/28/22 22:55 183/110 H 12/28/22 22:51 37.2 C 92 H 17 166/106 H 95 Room Air 12/28/22 20:09 37.4 C 94 H 16 159/97 H 95 Room Air PG Care Time/CCT Total # of Minutes Spent Total Time Spent with Patient: Total time spent is greater than 50% in coordination of care (as documented) at patient's floor/unit and/or counseling patient: Coding Level of Care Code 45898 Post Operative Follow-Up Diagnoses Acute cholecystitis K81.0
[2022-12-29 07:04] LABS: Basophils # (auto) 0.02 K/uL (0-0.2); Basophils % (auto) 0.1 %; Eosinophils # (auto) 0.03 K/uL (0-0.50); Eosinophils % (auto) 0.2 %; Hemoglobin 13.7 g/dl (14.0-18.0); Immature Granulocytes # (auto) 0.07 K/uL (0.01-0.20); Immature Granulocytes % (auto) 0.5 %; Lymphocytes # (auto) 1.34 K/uL (1.2-3.4); Lymphocytes % (auto) 8.9 %; Mean Corpuscular Hemoglobin 29.2 pg (25.0-34.0); Mean Corpuscular Hgb Conc 33.4 g/dL (32.0-36.0); Mean Corpuscular Volume 87.4 fL (80.0-100.0); Mean Platelet Volume 10.1 fL (9.4-12.4); Monocytes # (auto) 1.39 K/uL (0.11-0.59); Monocytes % (auto) 9.3 %; Neutrophils # (auto) 12.15 K/uL (1.40-6.50); Platelet Count 180 K/uL (130-400); RDW Coefficient of Variation 13.3 % (11.5-14.5); RDW Standard Deviation 42.2 fL (36.4-46.3); Red Blood Count 4.69 M/uL (4.70-6.10)
[2022-12-29 07:29] LABS: Albumin Globulin Ratio 1.2 (0.9-2); Albumin Level 3.6 gm/dl (3.4-5.0); Creatinine Clr Calc Pharmacy 169.9 ml/min; Est GFR (African American) 126.7 ml/min; Est GFR (Non-African American) 109.3 ml/min; Magnesium 1.8 mg/dl (1.7-2.4); Potassium 3.3 mmol/L (3.5-5.1); Total Protein 6.6 gm/dl (6.0-8.3)
[2022-12-29] MEDS ORDERED: POTASSIUM CHLORIDE CRTAB 20 MEQ TABCR PO STA (08:04)
--- NOTE | 2022-12-29 08:06 | Hospitalist Progress Note ---
Date of Service December 29, 2022 Assessment & Plan Admission and Anticipated Discharge Date Admission Date: December 26, 2022 Results & Data Results & Data Vital Signs (Past 12 Hours) Vital Signs Temp Pulse Resp BP Pulse Ox O2 Del Method 12/29/22 08:00 37.0 C 96 H 16 146/96 H 93 Room Air 12/29/22 04:34 36.4 C L 93 H 16 161/95 H 95 Room Air 12/28/22 23:44 141/89 H 12/28/22 22:55 183/110 H 12/28/22 22:51 37.2 C 92 H 17 166/106 H 95 Room Air 12/28/22 20:09 37.4 C 94 H 16 159/97 H 95 Room Air Laboratory Results 12/29/22 12/29/22 12/28/22 Range/Units 06:43 06:43 10:50 WBC 15.00 H 11.84 H (4.8-10.8) K/ul RBC 4.69 L 4.71 (4.70-6.10) M/uL Hgb 13.7 L 14.0 (14.0-18.0) g/dl Hct 41.0 L 41.3 L (42.0-52.0) % MCV 87.4 87.7 (80.0-100.0) fL MCH 29.2 29.7 (25.0-34.0) pg MCHC 33.4 33.9 (32.0-36.0) g/dL RDW Std Deviation 42.2 41.4 (36.4-46.3) fL RDW Coeff of Ashlyn 13.3 13.0 (11.5-14.5) % Plt Count 180 214 (130-400) K/uL MPV 10.1 10.0 (9.4-12.4) fL Immature Gran % (Auto) 0.5 0.8 % Neut % (Auto) 81.0 88.3 % Lymph % (Auto) 8.9 6.9 % [place] % (Auto) 9.3 3.4 % Eos % (Auto) 0.2 0.4 % Baso % (Auto) 0.1 0.2 % Neut # (Auto) 12.15 H 10.45 H (1.40-6.50) K/uL Lymph # (Auto) 1.34 0.82 L (1.2-3.4) K/uL [place] # (Auto) 1.39 H 0.40 (0.11-0.59) K/uL Eos # (Auto) 0.03 0.05 (0-0.50) K/uL Baso # (Auto) 0.02 0.02 (0-0.2) K/uL Immature Gran # (Auto) 0.07 0.10 (0.01-0.20) K/uL Sodium 142 (136-145) mmol/L Potassium 3.3 L (3.5-5.1) mmol/L Chloride 105 (98-107) mmol/L Carbon Dioxide 29 (21-32) mmol/L Anion Gap 8 (3-11) BUN 6 (6-23) mg/dl Creatinine 0.60 (0.6-1.4) mg/dl Est Cr Clr Drug Dosing 169.9 ml/min Est GFR ( Amer) 126.7 ml/min Est GFR (Non-Af Amer) 109.3 ml/min BUN/Creatinine Ratio 10.0 (10-20) Glucose 110 H (70-99(Fasting)) mg/dl Calcium 9.0 (8.6-10.3) mg/dl Magnesium 1.8 (1.7-2.4) mg/dl Total Bilirubin 1.0 (0.2-1.0) mg/dl AST 346 H (13-39) U/L ALT 459 H (7-52) U/L Alkaline Phosphatase 207 H (34-104) U/L Total Protein 6.6 (6.0-8.3) gm/dl Albumin 3.6 (3.4-5.0) gm/dl Globulin 3.0 (2.5-4.0) gm/dl Albumin/Globulin Ratio 1.2 (0.9-2) TSH (0.300-4.500) uIu/ml 12/28/22 12/28/22 Range/Units 10:49 10:49 WBC (4.8-10.8) K/ul RBC (4.70-6.10) M/uL Hgb (14.0-18.0) g/dl Hct (42.0-52.0) % MCV (80.0-100.0) fL MCH (25.0-34.0) pg MCHC (32.0-36.0) g/dL RDW Std Deviation (36.4-46.3) fL RDW Coeff of Ashlyn (11.5-14.5) % Plt Count (130-400) K/uL MPV (9.4-12.4) fL Immature Gran % (Auto) % Neut % (Auto) % Lymph % (Auto) % [place] % (Auto) % Eos % (Auto) % Baso % (Auto) % Neut # (Auto) (1.40-6.50) K/uL Lymph # (Auto) (1.2-3.4) K/uL [place] # (Auto) (0.11-0.59) K/uL Eos # (Auto) (0-0.50) K/uL Baso # (Auto) (0-0.2) K/uL Immature Gran # (Auto) (0.01-0.20) K/uL Sodium 140 (136-145) mmol/L Potassium 3.8 (3.5-5.1) mmol/L Chloride 104 (98-107) mmol/L Carbon Dioxide 28 (21-32) mmol/L Anion Gap 8 (3-11) BUN 9 (6-23) mg/dl Creatinine 0.81 (0.6-1.4) mg/dl Est Cr Clr Drug Dosing 125.9 ml/min Est GFR ( Amer) 112.0 ml/min Est GFR (Non-Af Amer) 96.6 ml/min BUN/Creatinine Ratio 11.1 (10-20) Glucose 160 H (70-99(Fasting)) mg/dl Calcium 9.1 (8.6-10.3) mg/dl Magnesium (1.7-2.4) mg/dl Total Bilirubin 1.2 H D (0.2-1.0) mg/dl AST 235 H (13-39) U/L ALT 347 H (7-52) U/L Alkaline Phosphatase 231 H (34-104) U/L Total Protein 6.5 (6.0-8.3) gm/dl Albumin 3.5 (3.4-5.0) gm/dl Globulin 3.0 (2.5-4.0) gm/dl Albumin/Globulin Ratio 1.2 (0.9-2) TSH 0.893 (0.300-4.500) uIu/ml PG Care Time/CCT Total # of Minutes Spent Total Time Spent with Patient: Total time spent is greater than 50% in coordination of care (as documented) at patient's floor/unit and/or counseling patient: Coding Diagnoses
[2022-12-29] MEDS ORDERED: ASPIRIN 81 MG ECTAB PO SCH (09:00)
[2022-12-29] MEDS ORDERED: ENOXAPARIN INJ 40 MG/0.4 ML SYR SQ SCH ×2 (09:00)
[2022-12-29] MEDS: ATORVASTATIN 40 MG TAB PO SCH (09:08)
[2022-12-29] MEDS: FEXOFENADINE HCL 180 MG TAB PO SCH (09:09)
[2022-12-29] MEDS: METOPROLOL SUCC 50MG EXT REL TAB PO SCH (09:10)
[2022-12-29] MEDS: PANTOprazole 40 MG TAB PO SCH (09:10)
--- NOTE | 2022-12-29 09:15 | XRay Report ---
XR chest 1V portable HISTORY: 62 years-old Male leukocytosis COMPARISON: 12/26/2022 TECHNIQUE: AP view of the chest FINDINGS: Cardiac silhouette is enlarged. Unchanged calcified focus of the left hilum. Prior median sternotomy. No pneumothorax, pleural effusion, airspace consolidation or pulmonary edema. Bones appear grossly i ntact. IMPRESSION: Cardiomegaly without acute process. ACT 112: Negative or not required by law. The above report was generated using voice recognition software. It may contain grammatical, syntax o r spelling errors. Electronically signed by: Chau Loja M.D. 12/29/2022 9:14 AM
--- NOTE | 2022-12-29 11:09 | Discharge Summary ---
Date of Service December 29, 2022 Admission HPI Per Admitting Provider Juan Carlos Aggarwal is a 62 year old male who presents to the ER due to outpatient CT showing acute cholecystitis. He reports abdominal pain intermittently, around umbilicus since eating a spicy sausage 2 weeks ago. Initially nausea and vomiting for next 2 days but now just nausea alone. Mild constipation. Reduced appetite as pain recurs on eating most thing. Associated 10 lb of weight loss. He went to his PCP office today who arranged outpatient CT which showed acute cholecystitis therefore he was referred to the ER for ongoing management. He has a history of cardiac bypass - May 2020May VANN to LAD. No cur rent issues with chest pain or shortness of breath on exertion. In addition has a bovine aortic heart valve replacement at that same time for severe aortic stenosis. No problems since with heart failure. Admission Exam Per Admitting Provider Constitutional: WD/WN, vitals as above Eyes: PERRL, conjunctivae normal, anicteric sclerae ENMT: external ear and nose normal, oropharynx normal Respiratory: normal respiratory effort, lungs clear to auscultation Cardiovascular: RRR, no murmur, no edema Gastrointestinal (Abdomen): Inspection/Auscultation: abdomen normal to inspection; abdomen not distended Percussion/Palpation: + abdomen tender (epigastric and umbilical without rebound) and abdomen soft; no guarding and abdomen not rigid Musculoskeletal: no cyanosis or clubbing, extremities motor strength 5/5 Skin: no rashes, warm and dry Neurologic: moves all extremities and awake; not confused Psychiatric: A+Ox3, euthymic affect Principal Diagnosis Acute Cholecystitis, Choledocholithiasis Discharge Exam General : WD male sitting up in chair, NAD, at bedside, minimal discomfort to incisions HEENT: head normocephalic, atraumatic, mmm, trachea midline Resp: CTA, slightly diminished in the bases, no w/c, on room air 95% CV: RRR, +click, no significant edema/calves nontender GI: great bowel sounds throughout, incision sites look good, minimal tenderness to incisions, appropriately tender without guarding/rigidity : no valentine MSK/Neuro: no focal deficit, no slurred speech, answering questions appropriately Psych: AOx3, cooperative with exam Discharge Data Allergies Allergy/AdvReac Type Severity Reaction Status Date / Time No Known Allergies Allergy Verified 12/26/22 08:30 Consultations 12/26/22 14:03 Consult General Surgery Routine 12/26/22 14:05 ED Decision to Admit Stat 12/26/22 20:00 Consult Gastroenterology Routine Procedures Performed Operation Date: 12/28/22 09:05 Actual Procedures p Laparoscopic Cholecystectomy(Not Applicable) - Scooter Andrews MD Ordered Studies Cholangiopancreatography MRI 12/26/22 13:58 MR MRCP HISTORY: Abnormal CT scan. Right upper quadrant pain. abn LFT's, cholecystitis TECHNIQUE: MRCP of the abdomen was performed without contrast according to standard department protocol. COMPARISON STUDY: Abdomen and pelvis CT 12/26/2022. FINDINGS: Suboptimal evaluation of the abdomen due to the motion artifact. There are poststernotomy changes noted. The liver, spleen, adrenal glands, and pancreas are unremarkable. No hydronephrosis. There are 2 T2 hyperintense lesions within the lower pole of the right kidney with the largest measuring 11 mm. These favor cysts. Normal left kidney. No retroperitoneal lymphadenopathy. Normal caliber abdominal aorta. The main portal vein appears patent. There are a few small gallstones. There is mild gallbladder wall thickening with trace pericholecystic fluid. Therefore, these findings are highly suspicious for acute cholecystitis. The common bile duct is normal in caliber measuring up to 4 mm. No definite filling defects within the common bile duct to suggest choledocholithiasis. The main pancreatic duct is also normal in caliber. No intrahepatic bile duct dilatation. IMPRESSION: 1. Cholelithiasis with mild gallbladder wall thickening and trace pericholecystic fluid. This is highly suspicious for acute cholecystitis. Surgical consultation recommended. 2. Normal caliber common bile duct. No evidence for choledocholithiasis. 3. Normal caliber main pancreatic duct. ACT 112: Negative or not required by law. Electronically signed by: Farhan Coelho M.D. 12/26/2022 6:33 PM Chest X-Ray 12/26/22 14:02 XR chest 1V portable CLINICAL HISTORY: pre-op TECHNIQUE: Single frontal radiograph of the chest was obtained. Comparison: Comparison is made to chest radiograph 07/10/2021 FINDINGS: Median sternotomy wires are unchanged. The cardiomediastinal silhouette is normal. Calcified lymph nodes are seen. The lungs are clear. No evidence of pleural effusion or pneumothorax. IMPRESSION: No acute chest disease. ACT 112: Negative or not required by law. Electronically signed by: Ion Patel M.D. 12/26/2022 2:40 PM Orbit X-Ray 12/26/22 14:53 ORBIT RADIOGRAPHS 3 VIEWS HISTORY: pre-MRI screening. COMPARISON: Orbit radiograph 11/14/2018. FINDINGS: There are no radiopaque foreign bodies identified within the orbits. IMPRESSION: No radiopaque foreign bodies identified within the orbits. ACT 112: Negative or not required by law. Electronically signed by: Farhan Coelho M.D. 12/26/2022 4:55 PM Endo Retro Cholangiopancreatogram 12/27/22 11:15 [place] ERCP biliary ductal CLINICAL HISTORY: ERCP IN OR TECHNIQUE: 6 views were obtained with the C-arm in the OR with the above procedure. Total fluoroscopy time was 52.2 seconds. Radiation dose was 20.1 mGy. Comparison: None available at the time of this dictation. FINDINGS/IMPRESSION: Intraoperative images were obtained of ERCP. In the final image, no filling defects are seen to suggest stones. Please correlate with intraoperative fluoroscopy and operative report. ACT 112: Negative or not required by law. Electronically signed by: Ion Patel M.D. 12/27/2022 1:42 PM Chest X-Ray 12/29/22 08:02 XR chest 1V portable HISTORY: 62 years-old Male leukocytosis COMPARISON: 12/26/2022 TECHNIQUE: AP view of the chest FINDINGS: Cardiac silhouette is enlarged. Unchanged calcified focus of the left hilum. Prior median sternotomy. No pneumothorax, pleural effusion, airspace consolidation or pulmonary edema. Bones appear grossly intact. IMPRESSION: Cardiomegaly without acute process. ACT 112: Negative or not required by law. The above report was generated using voice recognition software. It may contain grammatical, syntax or spelling errors. Electronically signed by: Chau Loja M.D. 12/29/2022 9:14 AM Hospital Course (1) Acute cholecystitis: CTAP on admission showing acute cholecystitis with TB 4.7, ALP elevation. lipase wnl MRCP ordered w/ Cholelithiasis with mild gallbladder wall thickening and trace pericholecystic fluid. This is highly suspicious for acute cholecystitis. Surgical consultation recommended. Normal caliber common bile duct. No evidence for choledocholithiasis. GI consulted * s/p ERCP/EGD 12/[address] Maldonado * EGD w/ evidence for barretts, biopsied (hx such, seen dr sinclair in past, on o meprazole once daily) * ERCP with evidence for choledocholithiasis. Complete removal w/ biliary sphincterotomy and balloon extraction. Biliary stent placed in CBD. * AVOID NSAIDs x 5 days, broad spectrum abx x 10 days. Will need stent removal 8-12 weeks * F.u reg GI (Dr Sinclair) for routine monitoring otherwise General surgery consulted * s/p Laparoscopic Cholecystectomy(Not Applicable) with Scooter Andrews 12/28 On Ceftriaxone/Flagyl inpatient and decision to switch to Augmentin at discharge given improvement on exam without pseudomonal coverage. Abx x 10 days total given choledocholithiasis WBC elevated but afebrile. CXR w/o acute process. No infectious symptoms, suspect elevated 2nd to stress/surgery. Tolerated advancement of diet without issue, passing lots of gas. bowel reg discussed at discharge Ok'd w/ GI for Lovenox SQ inpatient following surgery, ASA resumed given his hx of CABG. Hgb remained stable, no evidence for bleeding. LFTs were improving, TB normalized however AST/ALT/ALP elevated at discharge however minimal pain on examination and recommend repeating LFTs next week in follow up with primary care. Patient only having MINIMAL incisional discomfort at time of discharge (2) GERD (gastroesophageal reflux disease): Home omeprazole --> protonix while inpatient Increased to BID given reflux symptoms Pathology from EGD neg for barrets -- can continue once daily omeprazole at discr Outpt f/u Dr Sinclair (3) Hypothyroidism: TSH wnl, remained on Synthroid daily (4) S/P aortic valve replacement: Hx Bioprosthetic valve (5) Coronary artery disease: ASA held for surgery -- resumed post op Continued metoprolol, atorvastatin No CP reported (6) Sleep apnea: Noted in chart but patient denies any history of this Recommend following up outpatient Plan continue Augmentin at discharge Repeat ERCP in 8-[address] Maldonado for stent removal, routine f/u Dr Sinclair otherwise Follow up Dr Andrews from surgery in 1-2 weeks Recommend repeating LFTs next week with PCP to ensure resolved Total Time Total Time Spent Total Time Spent (In Minutes): 50 Discharge Plan Discharge Items Patient Disposition: Home - Self-Care Reason For Visit: ACUTE CHOLECYSTITIS WITH ELEVATED LFTS Discharge Diagnosis: Acute Cholecytisis Goals: You have been hospitalized for an urgent problem which required surgery. During your stay at [facility], we have made an effort to correct the problem that brought you to the hospital while keeping you as comfortable as possible. Surgery and medications were used to bring your condition under co ntrol and your discharge instructions will include directions for any medications you should take after leaving the hospital. Please make sure to follow the advice of your surgeon regarding follow up with the surgeon and with your primary care provider. Activity: As commented below Lifting: No more than 10 pounds Bathing Comment: may shower. no tub soaks Non-emergency contact: Primary Care Provider, Surgeon and Spinning Lathe Operator Hydraulic Call non-emergency contact if: you have any medication questions, your symptoms worsen, your pain is not controlled and you have a fever Follow-up/Referrals: Kyle Sinclair DO [Physician] - Scooter Andrews MD [Physician] - Rani Brown MD [Primary Care Provider] - 01/08/23 1:00 pm (APPOINTMENT WITH DR CEJA) Minda Maldonado DO [Physician] - (8-12 weeks) Diet: Heart Healthy Addtl Attending Provider Instructions: You have been hospitalized and found to have an acute gallbladder infection. GI and general surgery were consulted and you underwent ERCP with placement of stent and removal of stone and you will need repeat in 8-12 weeks for removal with Dr Maldonado. As discussed, NO NSAIDs - aleve/motrin/ibuprofen for 5 days after stent placement but you don't take these due to your cardiac history. You should follow up routinely with Dr Sinclair for EGD screening but your pathology for barretts was negative and you can continue your omeprazole once daily at discharge as you were previously taking. You will continue antibiotics for a total of ten days. You completed 3 days while in the hospital and have another 7 days of augmentin twice daily. You will need to follow up with Dr Andrews from surgery in the next 1-2 weeks to monitor your progress after surgery. Please continue your follow up with Dr Brown next Saturday to monitor your status after discharge. Please return to the emergency department with any fevers/chills, chest pain, shortness of breath, worsening abdominal pain, vomiting, inability to tolerate oral intake or for any other symptoms concerning for you. It has been a pleasure being a part of the medical team providing for you while you have been in the hospital. Take care! Addtl Laborer General Provider Instructions: Post-Surgical ~Discharge Instructions Activity Recommendations: - lifting limitation: (20 pounds for 2-3 weeks), - exercise/sex/sports limit: (nonstrenuous for 2 weeks), - driving or machine use limit: (none for 1 week,until pain free and no longer taking narcotic pain medication), - Shower/bathe limit: (may shower) Diet: - Resume previous diet SPECIAL CARE INSTRUCTIONS: - May shower.. Let water run over area and pat dry. - Leave surgical glue on incisions, do not pick at it. - Call the surgeon's office with any questions or concerns - - (ex. temperature higher than 101 degrees F, excessive bleeding or pain). MEDICATIONS: - Resume previous medications unless instructed otherwise by your surgeon. - May take Tylenol 650 mg every 6 hours as needed - AVOID nsaids (Ibuprofen, motrin, Aleve, Aspirin for 5 days after your ERCP procedure) - Percocet 1 every 6 hours, as needed for moderate to severe pain - May take daily stool softener (Colace) while taking narcotic pain medication to prevent constipation or straining. FOLLOW UP VISIT: - If not already scheduled, please call the office to schedule a two week follow-up appointment. Office number Pending Studies at Discharge: Yes (gallbladder pathology, will be reviewed at postop visit.) Stand-Alone Forms: My [facility] Medications and DC Order Prescriptions: New amoxicillin-pot clavulanate 875-125 mg tablet 1 tab PO BID 7 Days Qty: 14 0RF Continued amoxicillin 500 mg capsule 2,000 mg PO ONCE PRN (Reason: Dental procedure) 1 Days Qty: 4 5RF Rx Instructions: Take 4 caps 1 hour prior to dental procedures/exam. omeprazole 20 mg capsule,delayed release(DR/EC) 20 mg PO QAM Qty: 90 3RF atorvastatin 80 mg tablet 80 mg PO QAM Qty: 90 3RF metoprolol succinate 50 mg tablet extended release 24 hr 50 mg PO QAM Qty: 90 3RF multivitamin Tablet 1 tab PO QAM glucosamine-chondroitin 500-400 mg Tablet 2 tab PO QAM Rx Instructions: UNKNOWN STRENGTH aspirin 81 mg Tablet,Delayed Release (Dr/Ec) 81 mg PO QAM Qty: 90 0RF fexofenadine 180 mg Tablet 180 mg PO QAM levothyroxine 137 mcg tablet 137 mcg PO QAM Discharge Orders: Discharge Order (Routine); Ordered 12/29/22 Ordered By: Lluvia Oseguera Admission Data Admit Date/Time: 12/26/22 14:31 Attending Provider: Bhavya Kimball Admit Provider: Bill Bradford Primary Care Provider: Rani Brown Other Providers: Scooter Andrews ; Bill Bradford ; Chandan Velasquez ; Kyle Sinclair ; Danielle Cortez ; Barbara Yoder ; Sarah Perry ; Tiffany Ledezma ; Ray Mesa ; Quentin Llamas ; Minda Maldonado ; Dary Damon ; Gigi Fox ; Roxana Arias ; Cassy Gooden ; Liz Sprague ; Mariana Walls ; Omid Stoddard ; Giancarlo Keller ; Jevon Jarvis ; Suzette Avina ; Escobar Welsh Jr Supervising Physician Co-Signing Physician Notes PA Supervision Note: I personally saw and examined the patient. I verified all donald points and agree with GUNJAN Oseguera with the following exceptions and/or additions: S-Pt feeling well, much improved, passing flatus, minimal incisional discomfort in abdomen, no nausea, tolerating reg diet O- Vitals reviewed Gen: [AAOx3, NAD] HEENT: [anicteric sclerae, EOMI] CV: [RRR no mgr nl S1S2] Pulm: [CTAB no wcr] Abd: [+BS soft NT ND no masses or hernias,incisions cdi] Ext: [no edema, 2+ DP pulses] Skin: [no rashes, warm/dry] Neuro: [full strength throughout] A/P-62 yo male here with choledocholithiasis and acute cholecystitis now s/p ERCP wth stent placement CBD, s/p lap paulette Much improved, stable for dc to home on abx Coding Level of Care Code 69970 INP/OBS DISCH >30 MIN Diagnoses Acute cholecystitis K81.0 GERD (gastroesophageal reflux disease) K21.9 Esophagitis presence: esophagitis presence not specified Hypothyroidism E03.9 Hypothyroidism type: unspecified S/P aortic valve replacement Z95.2 Coronary artery disease I25.10 Sleep apnea G47.30
== END 2022-12-29 13:57 | disposition home or self-care (01) | DRG 419 ==
LOC: ED 12:23 → 3W 14:31 → SUATTDRO 14:31 → 3W 16:25

== ENCOUNTER 2023-12-24 11:30 | Observation (INO) ==
--- NOTE | 2023-12-24 12:49 | History & Physical Bridge Note ---
Date of Service December 24, 2023 History & Physical Bridge Note I have examined the patient, reviewed the History & Physical and in the interval since the performance of the History & Physical I have noted the following changes of clinical significance: no changes noted. I reviewed the indications, procedure, risks and alternatives with the patient, and answered all questions. Patient understands and agrees to the procedure. Consent obtained. I also reviewed the risks and use of sedation, patient understands and consent obtained.
--- NOTE | 2023-12-24 12:51 | Pre Anesthesia Assessment ---
Date of Service December 24, 2023 Pre Sedation Assessment Vital Signs Temp Pulse BP Pulse Ox O2 Del Method 12/24/23 11:50 36.5 C 81 120/102 H 98 Room Air Cardiovascular + regular rate + murmur Additional Comments: Good prosthetic valve sounds Pre-Sedation Airway Assessment Smoking Status: Never smoker Hx Sleep Apnea: Yes Short, Thick Neck: No Thyromental Distance: > or= 3.5 Finger Breadths Oral Cavity: + WNL Mallampati Class: III ASA: ASA3 NPO Status Date of Last Intake of Fluids: 12/23/23 Time of Last Intake of Fluids: 18:00 Date of Last Intake of Solid Food: 12/23/23 Time of Last Intake of Solid Foods: 18:00 Procedure Planning Contraindications for Sedation: none Current Medications Reviewed: Yes Notes The planned sedation has been discussed with the patient. Informed Consent was obtained. I have identified the patient, determined the appropriateness of sedation and have assessed the patient immediately prior to the procedure. All medicine(s) and interventions are by my order.
[2023-12-24] MEDS: LIDOCAINE 1% LOCAL 20 ML VIAL ONE (13:54)
[2023-12-24] MEDS: ceFAZolin 330 MG/ML 1 GM VIAL ONE (13:55)
[2023-12-24] MEDS: VANCOMYCIN HCL 1000MG/20ML VIAL ONE (13:55)
[2023-12-24] MEDS: WATER, STERILE FOR INJ 10 ML VIAL ONE ×2 (13:55)
[2023-12-24] MEDS: fentaNYL citrate PF 100 MCG/2 ML VIAL ONE (14:35)
[2023-12-24] MEDS: MIDAZOLAM HCL 5 MG/ML 1 ML VIAL ONE (14:35)
--- NOTE | 2023-12-24 15:30 | Electrophysiology Report ---
Date of Service December 24, 2023 Electrophysiology Procedure Electrophysiology Procedure Report Preoperative diagnosis: Symptomatic second degree AV block Postoperative diagnosis: Same Procedure: Left subclavian venogram Dual-chamber left pacemaker implantation Surgeon: Yasir Coppola MD Estimated blood loss: 50 cc Complications: None Disposition: Retail Product Demo Specialist recovery Procedure details: After obtaining informed consent for the procedure, the patient was brought to the laboratory and prepped and draped in the standard sterile manner. Dye was injected the left arm IV site to opacify the left subclavian vein. The subclavian vein was identified and found to be free of obstruction. The left prepectoral region was anesthetized with 1% lidocaine local anesthetic and left axillary venipuncture was performed by percutaneous technique and a guidewire placed through the left subclavian vein into the superior vena cava. The area was further infiltrated with 1% lidocaine local anesthetic and a 5 cm incision was made parallel to the left clavicle and 2 cm below it and carried down to the anterior pectoralis fascia. A pacemaker pocket was formed by blunt dissection anterior to the pectoralis fascia and a vancomycin-soaked sponge was placed in the pocket. A 9 [place] Medtronic lead introducer was placed over the guidewire into the left subclavian vein, the dilator and guidewire were removed and a bipolar active fixation steroid tipped atrial lead was advanced through the introducer into the superior vena cava. A guidewire was placed through the introducer and the introducer was stripped from the lead and guidewire. The atrial lead was temporarily positioned in the right ventricle for backup pacing. A 7 [place] Medtronic lead introducer was placed over the guidewire into the left subclavian vein, the dilator and guidewire were removed. A C315 His 02 septal sheath was advanced through the introducer over a guidewire and advanced into the right ventricular outflow tract. The guidewire and dilator were removed and the sheath was positioned in a mid septal location. A bipolar active fixation steroid tipped ventricular lead was advanced through the introducer and rotated to advance the screw into the septum. Multiple positions were tested however the threshold was high as well as the lead impedance. Ultimately this was abandoned and the atrial lead which had been used for backup pacing was moved to the right ventricular apex and fixed in position. Pacing and sensing characteristics were evaluated in bipolar configuration and are recorded on the implant data sheet. A bipolar active-fixation steroid tipped atrial lead was advanced through the introducer into the right atrium. Using a curved stylette the lead was positioned in the atrial appendage and fixed in position. Pacing and sensing thresholds were evaluated in bipolar configuration and are recorded on the implant data sheet. Once the leads were in position they were attached to the anterior pectoralis fascia using 2 sutures of 2-0 silk around each lead collar. The vancomycin soaked sponge was removed from the pocket, hemostasis was obtained, the pacemaker was attached to the leads and placed in the pocket with the leads coiled beneath it. The incision was closed with a running double subcutaneous closure of 3-0 Vicryl absorbable suture, followed by running subcuticular skin closure of 4-0 Vicryl absorbable suture. Bacitracin ointment was placed on the incision and a dressing applied. [facility] [place] Electrophysiology codes Indication for Procedure (1) AVB (atrioventricular block): Pacing Procedure 1: Pacin Insert/Replace Pacer A & V Miscellaneous Procedures Procedure 1: EP Miscellaneous: 35466 Contrast injection for venography Procedure 2: EP Miscellaneous: 49895-06 Vengraphy, extremity PG Moderate Sedation Codes Moderate Sedation Codes Procedure 1: Sedation/Anesthesia: 88449 Mod Sedation by the same physician;Init15 Min Child Age 5 & Up Procedure 2: Sedation/Anesthesia: 04509 Mod Sedation by the same physician; Ea [id number] Minutes
[2023-12-24] MEDS ORDERED: ACETAMINOPHEN W/CODEINE #3 1 TAB PO PRN (15:33)
--- NOTE | 2023-12-24 15:52 | Post Anesthesia Assessment ---
Date of Service December 24, 2023 Post Sedation Assessment Vital Signs Temp Pulse Resp BP BP Pulse Ox O2 Del Method 12/24/23 15:46 73 16 187/105 H 97 Room Air 12/24/23 15:31 70 17 155/104 H 97 Room Air 12/24/23 15:16 72 16 156/109 H 97 Room Air 12/24/23 15:01 77 16 169/116 H 97 Room Air 12/24/23 11:50 36.5 C 81 120/102 H 98 Room Air Recovery Score Activity: Moves 4 extremities Respiration: Deep Breath/Cough Circulation: +/-20% PreAnes Value Consciousness: Fully Awake Oxygen Saturation: > 92% On Room Air Post Anesthesia Score: 10 Discharge Sedation Level of Care: Fast Track Phase II Post Sedation Plan On clinical assessment, the patient appears to have tolerated the sedation without complications. Patient is recovering as anticipated. Patient will continue to be monitored by nursing and may be discharged when sedation discharge criteria are met per below protocol. Upon Completions of procedure up to 15 minutes continue every 5 minute vital s igns and the P.A.R. score; then discharge to a Phase I or Fast Track to Phase II per the following guidelines: * Discharge Patient to appropriate Phase II area if PAR is 8 or greater or return to pre- procedure baseline. The post - procedure orders will be as directed. * If PAR score is less than 8 or not return to pre-procedure baseline then patient will follow Phase I monitoring till PAR is reached for Phase II. The Phase I may be done in procedure room or may call to secure a Phase I area. * If naloxone or flumazenil are used for reversal, hold in Phase I for continued monitoring from when last reversal dose was given for a minimum of 60 minutes or longer pending the nurse and/or physician discretion of patient condition before discharge to Phase II. Please call the Sedation Physician to re-evaluate and complete post-note for discharge to Phase II area. Do NOT discharge from procedure sedation or Phase 1 until post- sedation evaluation note is complete by procedure /sedation MD Sedation Discharge Instructions to be given to the patient at discharge to home.
[2023-12-24] MEDS: METOPROLOL TARTRATE 50 MG TAB PO STA (17:38)
--- NOTE | 2023-12-24 17:56 | Electrocardiogram Report ---
Test Reason : Blood Pressure : / mmHG Vent. Rate : 073 BPM Atrial Rate : 073 BPM P-R Int : 154 ms QRS Dur : 118 ms QT Int : 416 ms P-R-T Axes : 000 -26 144 degrees QTc Int : 458 ms Atrial-sensed ventricular-paced rhythm Abnormal ECG When compared with ECG of 12-DEC-2023 15:47, Electronic ventricular pacemaker has replaced Sinus rhythm Confirmed by Too Chan ([id number]) on 12/24/2023 5:56:30 PM Referred By: Yasir Coppola Confirmed By:Too Chan
[2023-12-24] MEDS: ACETAMINOPHEN 325 MG TAB PO PRN (22:57)
[2023-12-25] MEDS: LEVOTHYROXINE SODIUM 137 MCG TABLET PO SCH (05:50)
--- NOTE | 2023-12-25 08:16 | XRay Report ---
XR chest 2V PA/lateral CLINICAL HISTORY: Pacemaker insertion. COMPARISON STUDY: Chest radiograph October 16, 2023. FINDINGS: There is no pneumothorax following placement of a dual-lead left subclavian pacer. Lead tip s project over the right atrial appendage and right ventricle. There are median sternotomy wires and a prosthetic aortic valve. Calcified left hilar/AP window lymph node is again noted. Cardiomegaly is unchanged. No evidence for pulmonary edema. No pleural effusion. No consolidation. IMPRESSION: No pneumothorax following placement of a dual-lead left subclavian pacemaker. ACT 112: Negative or not required by law. Electronically signed by: Asim Brown M.D. 12/25/2023 8:15 AM
[2023-12-25] MEDS: ASPIRIN 81 MG ECTAB PO SCH (09:17)
[2023-12-25] MEDS: FEXOFENADINE HCL 180 MG TAB PO SCH (09:17)
[2023-12-25] MEDS: PANTOprazole 40 MG TAB PO SCH (09:17)
[2023-12-25] MEDS: ATORVASTATIN 40 MG TAB PO SCH (09:17)
[2023-12-25] MEDS: MULTIVITAMIN TAB PO SCH (09:17)
--- NOTE | 2023-12-25 14:04 | Cardiology Progress Note ---
Date of Service December 25, 2023 Assessment & Plan (1) AVB (atrioventricular block): (2) Status post placement of cardiac pacemaker: Plan 1. AV block: He has continued to have intermittent AV block, the pacemaker will accommodate these changes in conduction. 2. Status post pacemaker: Doing very well postop day #1, stable for discharge. Admission and Anticipated Discharge Date Admission Date: December 24, 2023 Subjective He is feeling well today, he was quite hypertensive yesterday but improved today. He is having no significant discomfort at his implant site. Physical Exam Physical Exam: The site is clean and dry with no bleeding on the bandage. No swelling in the area. Cardiac rhythm is regular with no rub Lungs are clear Results & Data Vital Signs (Past 12 Hours) Vital Signs Temp Pulse Pulse Resp BP BP Pulse Ox 12/25/23 11:49 36.5 C 82 18 157/104 H 158/106 H 97 12/25/23 08:09 36.6 C 73 18 171/111 H 145/93 H 96 12/25/23 08:00 74 12/25/23 05:50 74 151/87 H 12/25/23 04:32 76 147/90 H 12/25/23 04:25 74 149/99 H 12/25/23 04:03 36.6 C 71 18 156/108 H 97 O2 Del Method 12/25/23 11:49 Room Air 12/25/23 08:09 Room Air 12/25/23 08:00 12/25/23 05:50 12/25/23 04:32 12/25/23 04:25 12/25/23 04:03 Room Air Laboratory Results Intake and Output 12/24/23 12/25/23 12/25/23 22:59 06:59 14:59 Intake Total 50 / 50 Balance 50 / 50 Intake: Oral 50 / 50 Other: # Unmeasured Voids 1 1 Weight 108.409 kg Diagnostic Findings Telemetry: Normal pacemaker function with intermittent ventricular pacing Electrocardiogram: Postop showed appropriate pacemaker inhibition and intact AV conduction Chest x-ray: Good lead position, no pneumothorax Device evaluation: Excellent pacing and sensing characteristics PG Care Time/CCT Total # of Minutes Spent Total Time Spent with Patient: Total time spent is greater than 50% in coordination of care (as documented) at patient's floor/unit and/or counseling patient: Coding Level of Care Code 15177 Post Operative Follow-Up Diagnoses AVB (atrioventricular block) I44.30 Status post placement of cardiac pacemaker Z95.0 CPT Codes Dual Lead Pacemaker System - 68132 ([id number])
== END 2023-12-25 14:43 | disposition home or self-care (01) ==
LOC: 4W 11:30 → EP 11:30